=== PATIENT | female | born 1985 | race Caucasian/White ===

== ENCOUNTER 2017-01-01 18:09 | Emergency (ER) | payer SELFPAY ==
[2017-01-01 18:31] VITALS: BP 117/74
--- NOTE | 2017-01-01 19:56 | UC ---
Knee Pain HPI - HPI Summary HPI Summary: 31 yo female fell and landed on both knees today at work She is unsure why she fell denies tripping denies syncopal episode no cp/sob states she has been dizzy for about a week no CLARK no ear ache no tinnitis no sinus symptoms - History of Current Complaint Chief Complaint: UCLowerExtremity Stated Complaint: BILATERAL KNEE PAIN/FALL Time Seen by Provider: 01/01/17 19:35 Hx Obtained From: Patient Hx Last Menstrual Period: 12/31/16 Onset/Duration: Sudden Onset Severity Initially: Moderate Severity Currently: Mild Location Of Injury: L>R knee Pain Intensity: 3 Pain Scale Used: 0-10 Numeric Character: Dull, Aching Aggravating Factor(s): Movement, Weight Bearing Alleviating Factor(s): Rest Associated Signs And Symptoms: Positive: Bruising Able to Bear Weight: Yes - Allergies/Home Medications Allergies/Adverse Reactions: Allergies Allergy/AdvReac Type Severity Reaction Status Date / Time No Known Allergies Allergy Verified 01/01/17 18:30 Home Medications: Home Medications NK [No Home Medications Reported] 01/01/17 [History Confirmed 01/01/17] PMH/Surg Hx/FS Hx/Imm Hx Previously Healthy: Yes - Surgical History Surgical History: None - Family History Known Family History: Positive: Hypertension - Social History Alcohol Use: None Substance Use Type: None Smoking Status (MU): Never Smoked Tobacco Review of Systems Constitutional: Negative Skin: Bruising Eyes: Negative ENT: Negative Respiratory: Negative Cardiovascular: Negative Gastrointestinal: Negative Genitourinary: Negative Motor: Negative Neurovascular: Negative Musculoskeletal: Arthralgia Neurological: Negative Psychological: Negative All Other Systems Reviewed And Are Negative: Yes Physical Exam Triage Information Reviewed: Yes Appearance: Well-Appearing, No Pain Distress, Well-Nourished Vital Signs: Initial Vital Signs Temp 99 F 01/01/17 18:25 Pulse 67 01/01/17 18:25 Resp 16 01/01/17 18:25 BP 117/74 01/01/17 18:25 Pulse Ox 100 01/01/17 18:25 Vital Signs Reviewed: Yes Eyes: Positive: Conjunctiva Clear, Other: - eomi/perrl ENT: Positive: Hearing grossly normal, Pharynx normal, TMs normal. Negative: Nasal congestion, Nasal drainage, TM bulging, TM dull, TM red, Tonsillar swelling, Tonsillar exudate, Trismus, Muffled/hoarse voice Neck: Positive: Supple, Nontender, No Lymphadenopathy Respiratory: Positive: Lungs clear, Normal breath sounds, No respiratory distress, No accessory muscle use Cardiovascular: Positive: RRR, No Murmur Musculoskeletal: Positive: ROM Intact, No Edema, Other: - normal gait/no limp/ from Neurological Exam: Normal Neurological: Positive: Alert Psychological Exam: Normal Knee Pain Course/Dx - Differential Dx/Diagnosis Provider Diagnoses: bilateral knee contusions. dizziness of uncertain cause Discharge - Discharge Plan Condition: Stable Disposition: HOME Patient Education Materials: Contusion in Adults (ED), Dizziness (ED) Forms: *Work Release Referrals: MACIEJ Rosen [Primary Care Provider] - 1 Day Additional Instructions: rest elevate ice tylenol or advil as needed for pain I am unsure of the cause of your dizziness blood work is pending I suggest you see your provider tomorrow for recheck and review of lab work Images Front/Back of Body, Lg (Haskell): 1 - contusion 2 - contusion
[2017-01-02 10:47] LABS: Hematocrit 40 % (35-47); Hemoglobin 13.4 g/dl (12.0-16.0); Mean Corpuscular HGB Conc 33 g/dl (31-36); Mean Corpuscular Hemoglobin 29 pg (27-31); Mean Corpuscular Volume 86 fL (80-97); Mean Platelet Volume 8 um3 (7.4-10.4); Red Blood Count 4.71 10^6/ul (4.0-5.4); Red Cell Distribution Width 14 % (10.5-15)
[2017-01-02 10:56] LABS: BUN/Creatinine Ratio 16.2 (8-20); Calcium 9.3 mg/dL (8.6-10.3); EGFR African American 117.7 (>60); EGFR Non-African American 91.5 (>60); Potassium 3.7 mmol/L (3.5-5.0)
--- NOTE | 2017-01-03 07:19 | ED ---
Progress - Progress Note Progress Note: WBC/BMP (-). THANKS LUIS Course/Dx - Diagnoses Provider Diagnoses: Knee swelling
== END 2017-01-01 20:04 | disposition home or self-care (01) ==
LOC: UCCORT 18:09
DX: S80.02XA Contusion of left knee, initial encounter (principal); S80.01XA Contusion of right knee, initial encounter; W18.30XA Fall on same level, unspecified, initial encounter; Y93.9 Activity, unspecified; Y92.9 Unspecified place or not applicable; Y99.9 Unspecified external cause status; R42 Dizziness and giddiness
CPT/HCPCS: 36415; 80048; 85025; 99211; G0463

== ENCOUNTER 2017-03-11 21:16 | Emergency (ER) | payer OTHER ==
[2017-03-11 21:26] VITALS: BP 124/95
--- NOTE | 2017-03-11 21:31 | UC ---
Complaint Female HPI - HPI Summary HPI Summary: 31 YEAR FEMALE PRESENTS WITH COMPLAINS OF BURNING WITH URINATION. - History Of Current Complaint Chief Complaint: UCGU Stated Complaint: UTI Time Seen by Provider: 03/11/17 21:29 Hx Obtained From: Patient Hx Last Menstrual Period: on and off Onset/Duration: Sudden Onset Timing: Constant Severity Currently: Moderate Pain Scale Used: 0-10 Numeric - 5 Character: Sharp Aggravating Factor(s): Urination - Allergies/Home Medications Allergies/Adverse Reactions: Allergies Allergy/AdvReac Type Severity Reaction Status Date / Time No Known Allergies Allergy Verified 03/11/17 21:26 PMH/Surg Hx/FS Hx/Imm Hx Previously Healthy: Yes - Surgical History Surgical History: None - Family History Known Family History: Positive: Hypertension - Social History Alcohol Use: None Substance Use Type: None Smoking Status (MU): Never Smoked Tobacco Review of Systems Constitutional: Negative Skin: Negative Eyes: Negative ENT: Negative Respiratory: Negative Cardiovascular: Negative Gastrointestinal: Negative Genitourinary: Negative Motor: Negative Neurovascular: Negative Musculoskeletal: Negative Neurological: Negative Psychological: Negative All Other Systems Reviewed And Are Negative: Yes Physical Exam Triage Information Reviewed: Yes Vital Signs: Initial Vital Signs Temp 36.0 C 03/11/17 21:21 Pulse 100 03/11/17 21:21 Resp 18 03/11/17 21:21 BP 124/95 03/11/17 21:21 Pulse Ox 100 03/11/17 21:21 Eye Exam: Normal ENT Exam: Normal Dental Exam: Normal Neck exam: Normal Neck: Positive: 1 Respiratory Exam: Normal Cardiovascular Exam: Normal Abdominal Exam: Normal Musculoskeletal Exam: Normal Neurological Exam: Normal Psychological Exam: Normal Skin Exam: Normal Complaint Female Dx - Differential Dx/Diagnosis Provider Diagnoses: DYSURIA. URINARY FREQUENCY Discharge - Discharge Plan Condition: Stable Disposition: HOME Prescriptions: Cephalexin CAP* [Keflex CAP*] 500 mg PO TID #14 cap Patient Education Materials: Urinary Tract Infection in Women (ED) Referrals: MACIEJ Rosen [Primary Care Provider] -
[2017-03-11] MEDS ORDERED: Cephalexin CAP* 500 MG PO ONE (21:41)
== END 2017-03-11 21:56 | disposition home or self-care (01) ==
LOC: UCEAST 21:16
DX: R30.0 Dysuria (principal); R35.0 Frequency of micturition; Z32.02 Encounter for pregnancy test, result negative
CPT/HCPCS: 81003; 84702; 87086; 99212; A9270-GY; G0463

== ENCOUNTER 2017-03-26 16:16 | Emergency (ER) | payer OTHER ==
[2017-03-26 16:49] VITALS: BP 121/73
--- NOTE | 2017-03-26 16:59 | UC ---
Back Pain HPI - HPI Summary HPI Summary: 31 YEAR OLD FEMALE PRESENTS WITH BACK, SHOULDER AND ARM PAIN. - History of Current Complaint Chief Complaint: UCGeneralIllness Stated Complaint: BACK,ARM PAIN,NAUSEA Time Seen by Provider: 03/26/17 16:57 Hx Obtained From: Patient Hx Last Menstrual Period: 03/25/17 Onset/Duration: Sudden Onset Severity Initially: Moderate Severity Currently: Moderate Pain Scale Used: 0-10 Numeric - 5 Character: Sharp - Allergies/Home Medications Allergies/Adverse Reactions: Allergies Allergy/AdvReac Type Severity Reaction Status Date / Time No Known Allergies Allergy Verified 03/26/17 16:49 PMH/Surg Hx/FS Hx/Imm Hx Previously Healthy: Yes - Surgical History Surgical History: None - Family History Known Family History: Positive: Hypertension - Social History Alcohol Use: None Substance Use Type: None Smoking Status (MU): Never Smoked Tobacco - Immunization History Most Recent Influenza Vaccination: none Review of Systems Constitutional: Negative Skin: Negative Eyes: Negative ENT: Negative Respiratory: Negative Cardiovascular: Negative Gastrointestinal: Negative Genitourinary: Negative Motor: Negative Neurovascular: Negative Musculoskeletal: Myalgia - BACK, SHOULDER, ARM Neurological: Negative Psychological: Negative All Other Systems Reviewed And Are Negative: Yes Physical Exam Triage Information Reviewed: Yes Appearance: Well-Appearing Vital Signs: Initial Vital Signs Temp 36.6 C 03/26/17 16:44 Pulse 74 03/26/17 16:44 Resp 16 03/26/17 16:44 BP 121/73 03/26/17 16:44 Pulse Ox 99 03/26/17 16:44 Eye Exam: Normal ENT Exam: Normal Dental Exam: Normal Neck exam: Normal Neck: Positive: 1 Respiratory Exam: Normal Cardiovascular Exam: Normal Abdominal Exam: Normal Musculoskeletal Exam: Normal Neurological Exam: Normal Psychological Exam: Normal Skin Exam: Normal Back Pain Course/Dx - Differential Dx/Diagnosis Provider Diagnoses: SHOULDER PAIN. BACK PAIN. ARM PAIN Discharge - Discharge Plan Condition: Stable Disposition: HOME Prescriptions: Ibuprofen TAB* [Motrin TAB* 800 MG] 800 mg PO Q8H #30 tab Methocarbamol TAB* [Robaxin 500 MG TAB*] 500 mg PO TID PRN #30 tab PRN Reason: Spasms - Back Patient Education Materials: Muscle Spasm (ED), Lower Back Exercises (ED) Forms: *Work Release Referrals: MACIEJ Rosen [Primary Care Provider] -
== END 2017-03-26 17:44 | disposition home or self-care (01) ==
LOC: UCEAST 16:16
DX: M54.9 Dorsalgia, unspecified (principal); M25.519 Pain in unspecified shoulder; M79.603 Pain in arm, unspecified; Z32.02 Encounter for pregnancy test, result negative
CPT/HCPCS: 81003; 84702; 93005; 99212; G0463

== ENCOUNTER 2017-09-01 15:59 | Emergency (ER) | payer OTHER ==
[2017-09-01 16:11] VITALS: BP 149/99
[2017-09-01] MEDS ORDERED: Al Hydrox/Mg Hydrox/Simet LIQ* 30 ML UDC PO ONE (16:43)
--- NOTE | 2017-09-01 16:58 | UC ---
Kat Melo Gabriel, scribed for Hope Miles MD on 09/01/17 at 1646 . Cardiac HPI - HPI Summary HPI Summary: This patient is a 31 year old F presenting to [facility] with a chief complaint of mid sternal, epigastric CP since earlier today at 1330 while she was at work. The patient rates the aching, burning pain 3/10 in severity. Symptoms alleviated spontaneously, currently she has no pain. Patient reports anxiety around noon and being mildly SOB. Pt states sx started after using her vape - has had similar sx in past. Patient denies burping. She has had similar pain in the past and it has been alleviated by Prilosec. Pt did not take any today. Additionally she states these symptoms might all be related to her anxiety. LNMP 2 weeks ago. No diaphoriesis. mild nausea and feeling need to vomit - received. No fever, chills, cough. Pt also requested eval of rash on arms and upper chest. PT states started 2 days ago after changing laundry detergent. States itchy at times, particularly after shower. No difficulty breathing, facial swelling or other concerns Patients medication reviewed during this visit. - History of Current Complaint Chief Complaint: UCChestPain Stated Complaint: CHEST PAIN Time Seen by Provider: 09/01/17 16:14 Hx Obtained From: Patient Hx Last Menstrual Period: 2 weeks ago Onset/Duration: Lasting Hours, Resolved Timing: Intermittent Episodes Lasting: Initial Severity: Mild Current Severity: Mild Pain Intensity: 3 Chest Pain Location: Mid Sternal Character: Dull/Aching, Burning Aggravating Factor(s): Nothing Alleviating Factor(s): Nothing Associated Signs & Symptoms: Positive: Anxiety, SOB, Nausea/Vomiting. Negative : Chest Pain, Diaphoresis, Palpitations, Cough, Back Pain, Abdominal Pain - Allergy/Home Medications Allergies/Adverse Reactions: Allergies Allergy/AdvReac Type Severity Reaction Status Date / Time No Known Allergies Allergy Verified 09/01/17 16:08 Home Medications: Home Medications Buspirone HCl 5 mg PO DAILY PRN 09/01/17 [History Confirmed 09/01/17] PMH/Surg Hx/FS Hx/Imm Hx Previously Healthy: Yes GI/ History: Gastroesophageal Reflux Psychological History: Anxiety Other History Of: Negative For: Anticoagulant Therapy - Surgical History Surgical History: None - Family History Known Family History: Positive: Hypertension Negative: Cardiac Disease - Social History Occupation: Employed Full-time Lives: With Family Alcohol Use: None Substance Use Type: None Smoking Status (MU): Never Smoked Tobacco - Immunization History Most Recent Influenza Vaccination: none Review of Systems Constitutional: Negative Respiratory: Shortness Of Breath Cardiovascular: Chest Pain Gastrointestinal: Negative Psychological: Anxious All Other Systems Reviewed And Are Negative: Yes Physical Exam Triage Information Reviewed: Yes Appearance: Well-Appearing, No Pain Distress, Well-Nourished Vital Signs: Initial Vital Signs Temp 97.7 F 09/01/17 16:00 Pulse 75 09/01/17 16:00 Resp 18 09/01/17 16:00 BP 149/99 09/01/17 16:00 Pulse Ox 100 09/01/17 16:00 Vital Signs Reviewed: Yes Eye Exam: Normal Eyes: Positive: Conjunctiva Clear ENT Exam: Normal ENT: Positive: Normal ENT inspection, Hearing grossly normal, Pharynx normal, TMs normal Dental Exam: Normal Neck exam: Normal Neck: Positive: Supple, Nontender, No Lymphadenopathy Respiratory Exam: Normal Respiratory: Positive: Chest non-tender, Lungs clear, Normal breath sounds, No respiratory distress, No accessory muscle use Cardiovascular Exam: Normal Cardiovascular: Positive: RRR, No Murmur, Pulses Normal, Other: - no chest wall pain Abdominal Exam: Normal Abdomen Description: Positive: Other: - mild epigastric pain with palpation. No guarding, no rebound soft + BS Bowel Sounds: Positive: Present Musculoskeletal Exam: Normal Musculoskeletal: Positive: Strength Intact Neurological Exam: Normal Neurological: Positive: Alert Psychological Exam: Normal Psychological: Positive: Normal Response To Family Skin: Positive: rashes - pt with small, raised rash on arms and chest - itchy - x 2 days - pt with new laundry detergent Diagnostics - EKG Cardiac Rate: NL Cardiac Rhythm: Sinus: Normal - at 67 BPM , Other Rhythm: Normal - no acute st/ t wave changes Re-Evaluation - Re-Evaluation First Eval Re-Evaluation Time: 17:23 Change: Improved Comment: Patient is experiencing no pain, she is eating and drinking with no complaints. - Assessment/Plan Course Of Treatment: BP noted and advised to follow up with PCP. Pt with epigastric burning and aching with nausea earlier today following vaping. sx resolved. pt with h/o GERD- intermittently takes prilosec - none x 1 week. no cardiovascular risk factor. Pt with mild episgastric discomfort and non cerning exam. Will give maalox, reassessment and po trial. pt comfortable and in agreeent with plan. Pt also with rash- new laundry detergent - will Rx hydrocortisone cream. pt and mom comfortable and in agreement with plan - Clinical Impression Provider Diagnoses: Elevated blood pressure without a previous diagnoses of hypertension. epigastric pain. acute rash - likely contact dermatitis Discharge - Discharge Plan Condition: Stable Disposition: HOME Prescriptions: Hydrocortisone 0.5% CM(NF) [Hydrocortisone 0.5% CREAM(NF)] 1 applic .SEE ORDER BID PRN #1 applic PRN Reason: Itching Omeprazole CAP* [Prilosec CAP* 20 MG] 20 mg PO DAILY #14 cap.dr Patient Education Materials: Acute Rash (ED), Epigastric Pain (ED) Referrals: MACIEJ Rosen [Primary Care Provider] - Additional Instructions: Your blood pressure was elevated during today's visit. Please follow up with your primary care provider in 1-2 weeks. It is recommended you take prilosec daily east small frequent meals Avoid spicy food, acidic food, tomato based foods, carbonated beverages, excess caffeine The doctor thinks you rash is related to your new laundry detergent. It is recommended you re-wash all clothing washed in this detergent in previous detergent. Okay to apply hydrocortisone cream as instructed for itching Avoid hot showers for 2-3 days as this will make itching worse If you develop facial swelling or difficulty breathing it is recommended you call 911 or go to the emergency department Contact your doctor for a follow-up appointment this week to recheck your rash and your discomfort The documentation as recorded by the Kat wyatt Gabriel accurately reflects the service I personally performed and the decisions made by , Hope Miles MD.
== END 2017-09-01 17:35 | disposition home or self-care (01) ==
LOC: UCEAST 15:59
DX: R10.13 Epigastric pain (principal); R21 Rash and other nonspecific skin eruption; R03.0 Elevated blood-pressure reading, without diagnosis of hypertension; R11.2 Nausea with vomiting, unspecified; R06.02 Shortness of breath; K21.9 Gastro-esophageal reflux disease without esophagitis; F41.9 Anxiety disorder, unspecified
CPT/HCPCS: 93005; 99202; A9270-GY; G0463

== ENCOUNTER 2017-10-02 08:46 | Emergency (ER) | payer OTHER ==
[2017-10-02] MEDS ORDERED: NS 0.9% 1000 ML* 1,000 ML IV ONE (09:10)
[2017-10-02] MEDS ORDERED: Ondansetron INJ* 2 MG/ML VIAL IV ONE (09:10)
[2017-10-02] MEDS ORDERED: Ketorolac INJ* 30 MG/ML 1 ML VIAL IV PUSH ONE (09:12)
--- NOTE | 2017-10-02 09:17 | ED ---
GI/ HPI - HPI Summary HPI Summary: 31-year-old female presents with nausea vomiting diarrhea for two days. She denies any blood in her stool. She denies any chest pain or shortness of breath. She denies a cough. She admits to headache. Her headache is very typical headache for her. She needs with pressure behind her ears. She denies any sinus congestion. Denies any pain urination. she denies any flank pain. she admits to left upper quadrant pain when she vomits. She denies anyone else being sick. She denies any recent antibiotic use. She states her symptoms are making her anxiety worst. She has not taken anything for her symptoms. She denies any fevers. - History of Current Complaint Chief Complaint: EDNauseaVomitDiarrh Time Seen by Provider: 10/02/17 09:02 Stated Complaint: VOMITTING Hx Last Menstrual Period: 2 weeks ago Pain Intensity: 2 - Allergy/Home Medications Allergies/Adverse Reactions: Allergies Allergy/AdvReac Type Severity Reaction Status Date / Time citalopram [From Celexa] Allergy Hives Verified 10/02/17 08:56 CELEXA Allergy Intermediate Hives Uncoded 10/02/17 08:56 PMH/Surg Hx/FS Hx/Imm Hx Endocrine/Hematology History: Denies: Hx Anticoagulant Therapy, Hx Diabetes, Hx Thyroid Disease Cardiovascular History: Denies: Hx Hypertension Respiratory History: Denies: Hx Asthma, Hx Chronic Obstructive Pulmonary Disease (COPD) GI History: Denies: Hx Ulcer Infectious Disease History: No Infectious Disease History: Reports: Hx of Known/Suspected MRSA - in urine Denies: Hx Clostridium Difficile, Hx Hepatitis, Hx Human Immunodeficiency Virus (HIV), Hx Shingles, Hx Tuberculosis, Hx Known/Suspected VRE, Hx Known/ Suspected VRSA, History Other Infectious Disease, Traveled Outside the [place] in Last 30 Days - Family History Known Family History: Positive: Hypertension Negative: Cardiac Disease - Social History Alcohol Use: None Substance Use Type: Reports: None Smoking Status (MU): Never Smoked Tobacco Review of Systems Negative: Fever Negative: Chest Pain Negative: Shortness Of Breath Positive: Abdominal Pain - epigastric, Vomiting, Diarrhea, Nausea Positive: Headache All Other Systems Reviewed And Are Negative: Yes Physical Exam Triage Information Reviewed: Yes Vital Signs On Initial Exam: Initial Vitals Temp Pulse Resp BP Pulse Ox 98.1 F 83 16 115/82 98 10/02/17 08:56 10/02/17 08:56 10/02/17 08:56 10/02/17 08:56 10/02/17 08:56 Vital Signs Reviewed: Yes Appearance: Positive: Well-Appearing Skin: Positive: Warm, Dry Head/Face: Positive: Normal Head/Face Inspection Eyes: Positive: Normal, EOMI, EDUARDA, Conjunctiva Clear ENT: Positive: Normal ENT inspection, Pharynx normal, TMs normal - fluid behind ears Respiratory/Lung Sounds: Positive: Clear to Auscultation, Breath Sounds Present Cardiovascular: Positive: Normal, RRR Abdomen Description: Positive: Nontender, Soft Bowel Sounds: Positive: Present Musculoskeletal: Positive: Normal Neurological: Positive: Normal Psychiatric: Positive: Normal Diagnostics - Vital Signs Vital Signs Temp Pulse Resp BP Pulse Ox 10/02/17 08:56 98.1 F 83 16 115/82 98 - Laboratory Result Diagrams: 10/02/17 09:29 10/02/17 09:29 Lab Statement: Any lab studies that have been ordered have been reviewed, and results considered in the medical decision making process. Re-Evaluation - Re-Evaluation First Eval Re-Evaluation Time: 10:03 Change: Improved Comment: feeling better after zofran GIGU Course/Dx - Course Course Of Treatment: 31-year-old female presents with nausea vomiting diarrhea for two days. She denies any blood in her stool. She denies any chest pain or shortness of breath. She denies a cough. She admits to headache. Her headache is very typical headache for her. She needs with pressure behind her ears. She denies any sinus congestion. Denies any pain urination. she denies any flank pain. she admits to left upper quadrant pain when she vomits. She denies anyone else being sick. She denies any recent antibiotic use. She states her symptoms are making her anxiety worst. She has not taken anything for her symptoms. She denies any fevers. On exam lungs clear to auscultation. Abdomen soft nontender. labs wbc normal. patient requesting only orally meds. urine shows uti so will give cipro. electrolytes normal. will discharge with zofran. patient understand and agrees with plan. - Diagnoses Differential Diagnoses - Female: Gastroenteritis (Viral), Gastroenteritis ( Bacterial), Urinary Tract Infection Provider Diagnoses: Nausea vomiting and diarrhea, UTI (urinary tract infection) Discharge - Sign-Out/Discharge Documenting (check all that apply): Discharge - Discharge Plan Condition: Good Disposition: HOME Prescriptions: Ciprofloxacin TAB* [Cipro 500 MG TAB*] 500 mg PO BID #13 tab Ondansetron ODT TAB* [Zofran 4 MG Odt TAB*] 4 mg PO Q6H PRN #16 tab.odt PRN Reason: Nausea Patient Education Materials: Urinary Tract Infection in Women (ED), Acute Nausea and Vomiting (ED) Referrals: MACIEJ Rosen [Primary Care Provider] - Additional Instructions: Take cipro twice a day for 7 days Can take Zofran every 6 hours as needed for nausea Drink small amounts of fluid as tolerated When able to eat follow BRAT diet: Bananas, rice, applesauce, toast Take ibuprofen or Tylenol for pain as needed every 6 hours Follow up with primary within 5 days Return to ED if develop fever that does not respond to Tylenol or ibuprofen, severe abdominal pain, or any new or worsening symptoms - Billing Disposition and Condition Condition: GOOD Disposition: HOME
[2017-10-02] MEDS ORDERED: Ondansetron ODT TAB* 4 MG PO ONE (09:36)
[2017-10-02 09:41] LABS: ABS Basophils 0 10^3/ul (0-0.2); ABS Eosinophils 0 10^3/ul (0-0.6); ABS Lymphocytes 1.1 10^3/ul (1.0-4.8); ABS Monocytes 0.6 10^3/ul (0-0.8); ABS Neutrophils 5.6 10^3/ul (1.5-7.7); ABS Nucleated RBC 0 10^3/ul; Eosinophil % 0.6 % (0-6); Hematocrit 44 % (35-47); Hemoglobin 15.5 g/dl (12.0-16.0); Lymphocyte % 15.2 % (25-47); Mean Corpuscular HGB Conc 35 g/dl (31-36); Mean Corpuscular Hemoglobin 30 pg (27-31); Mean Corpuscular Volume 85 fL (80-97); Mean Platelet Volume 6.9 um3 (7.4-10.4); Nucleated Red Blood Cells % 0.2; Platelet Count 233 10^3/ul (150-450); Red Blood Count 5.23 10^6/ul (4.0-5.4); Red Cell Distribution Width 14 % (10.5-15); White Blood Count 7.5 10^3/ul (3.5-10.8)
[2017-10-02 09:57] LABS: Urine Appearance Cloudy; Urine Blood 3+ (Negative); Urine Color Yellow; Urine Ketones Trace (Negative); Urine Protein 1+(30 mg/dL) (Negative); Urine Specific Gravity 1.026 (1.010-1.030); Urine Urobilinogen Negative (Negative)
[2017-10-02 09:59] LABS: EGFR Non-African American 94.5 (>60)
[2017-10-02] MEDS ORDERED: Ciprofloxacin TAB* 500 MG PO ONE (10:00)
[2017-10-02 10:34] VITALS: BP 114/88
--- NOTE | 2017-10-04 11:54 | ED ---
Progress - Progress Note Progress Note: Patient's preliminary urine culture reveals greater than 100,000 Staphylococcus aureus. Patient was discharged on Cipro. This is most likely not appropriate treatment however will wait until tomorrow for final culture results to make adjustments. Re-Evaluation - Re-Evaluation First Eval Re-Evaluation Time: 10:03 Change: Improved Comment: feeling better after zofran Course/Dx - Course Course Of Treatment: 31-year-old female presents with nausea vomiting diarrhea for two days. She denies any blood in her stool. She denies any chest pain or shortness of breath. She denies a cough. She admits to headache. Her headache is very typical headache for her. She needs with pressure behind her ears. She denies any sinus congestion. Denies any pain urination. she denies any flank pain. she admits to left upper quadrant pain when she vomits. She denies anyone else being sick. She denies any recent antibiotic use. She states her symptoms are making her anxiety worst. She has not taken anything for her symptoms. She denies any fevers. On exam lungs clear to auscultation. Abdomen soft nontender. labs wbc normal. patient requesting only orally meds. urine shows uti so will give cipro. electrolytes normal. will discharge with zofran. patient understand and agrees with plan. - Diagnoses Provider Diagnoses: Nausea vomiting and diarrhea, UTI (urinary tract infection) Discharge - Sign-Out/Discharge Documenting (check all that apply): Post-Discharge Follow Up - Discharge Plan Condition: Good Disposition: HOME Prescriptions: Ciprofloxacin TAB* [Cipro 500 MG TAB*] 500 mg PO BID #13 tab Ondansetron ODT TAB* [Zofran 4 MG Odt TAB*] 4 mg PO Q6H PRN #16 tab.odt PRN Reason: Nausea Patient Education Materials: Urinary Tract Infection in Women (ED), Acute Nausea and Vomiting (ED) Referrals: MACIEJ Rosen [Primary Care Provider] - Additional Instructions: Take cipro twice a day for 7 days Can take Zofran every 6 hours as needed for nausea Drink small amounts of fluid as tolerated When able to eat follow BRAT diet: Bananas, rice, applesauce, toast Take ibuprofen or Tylenol for pain as needed every 6 hours Follow up with primary within 5 days Return to ED if develop fever that does not respond to Tylenol or ibuprofen, severe abdominal pain, or any new or worsening symptoms - Billing Disposition and Condition Condition: GOOD Disposition: HOME
--- NOTE | 2017-10-05 07:24 | ED ---
Progress - Progress Note Progress Note: Patient's preliminary urine culture reveals greater than 100,000 Staphylococcus aureus. Patient was discharged on Cipro. This is most likely not appropriate treatment however will wait until tomorrow for final culture results to make adjustments. UPDATE: Spoke with patient who feels about the same. She will stop Cipro and start Bactrim as she's had this in the past and has worked well for her. This will be sent to [facility] in [place]. Reviewed danger signs and symptoms of when to return to the emergency department. Patient agrees with plan. Re-Evaluation - Re-Evaluation First Eval Re-Evaluation Time: 10:03 Change: Improved Comment: feeling better after zofran Course/Dx - Course Course Of Treatment: 31-year-old female presents with nausea vomiting diarrhea for two days. She denies any blood in her stool. She denies any chest pain or shortness of breath. She denies a cough. She admits to headache. Her headache is very typical headache for her. She needs with pressure behind her ears. She denies any sinus congestion. Denies any pain urination. she denies any flank pain. she admits to left upper quadrant pain when she vomits. She denies anyone else being sick. She denies any recent antibiotic use. She states her symptoms are making her anxiety worst. She has not taken anything for her symptoms. She denies any fevers. On exam lungs clear to auscultation. Abdomen soft nontender. labs wbc normal. patient requesting only orally meds. urine shows uti so will give cipro. electrolytes normal. will discharge with zofran. patient understand and agrees with plan. - Diagnoses Provider Diagnoses: Nausea vomiting and diarrhea, UTI (urinary tract infection) Discharge - Sign-Out/Discharge Documenting (check all that apply): Post-Discharge Follow Up - Discharge Plan Condition: Good Disposition: HOME Prescriptions: Ciprofloxacin TAB* [Cipro 500 MG TAB*] 500 mg PO BID #13 tab Ondansetron ODT TAB* [Zofran 4 MG Odt TAB*] 4 mg PO Q6H PRN #16 tab.odt PRN Reason: Nausea Patient Education Materials: Urinary Tract Infection in Women (ED), Acute Nausea and Vomiting (ED) Referrals: MACIEJ Rosen [Primary Care Provider] - Additional Instructions: Take cipro twice a day for 7 days Can take Zofran every 6 hours as needed for nausea Drink small amounts of fluid as tolerated When able to eat follow BRAT diet: Bananas, rice, applesauce, toast Take ibuprofen or Tylenol for pain as needed every 6 hours Follow up with primary within 5 days Return to ED if develop fever that does not respond to Tylenol or ibuprofen, severe abdominal pain, or any new or worsening symptoms - Billing Disposition and Condition Condition: GOOD Disposition: HOME
== END 2017-10-02 10:33 | disposition home or self-care (01) ==
LOC: ED 08:46
DX: R11.2 Nausea with vomiting, unspecified (principal); R19.7 Diarrhea, unspecified; N39.0 Urinary tract infection, site not specified; B95.61 Methicillin susceptible Staphylococcus aureus infection as the cause of diseases classified elsewhere
CPT/HCPCS: 36415; 80053; 80307; 81003; 81015; 83690; 84702; 85025; 86141; 87077; 87086; 87186; 96360; 96374; 96375; 99283; A9270-GY; J1885; J2405

== ENCOUNTER 2017-12-15 07:06 | Inpatient (IN) | payer OTHER ==
[2017-12-15 07:59] LABS: ABS Basophils 0 10^3/ul (0-0.2); ABS Eosinophils 0.1 10^3/ul (0-0.6); ABS Lymphocytes 1.2 10^3/ul (1.0-4.8); ABS Monocytes 0.5 10^3/ul (0-0.8); ABS Neutrophils 4.2 10^3/ul (1.5-7.7); ABS Nucleated RBC 0 10^3/ul; Eosinophil % 1.2 % (0-6); Hematocrit 44 % (35-47); Hemoglobin 15.3 g/dl (12.0-16.0); Lymphocyte % 20.3 % (25-47); Mean Corpuscular HGB Conc 35 g/dl (31-36); Mean Corpuscular Hemoglobin 29 pg (27-31); Mean Corpuscular Volume 83 fL (80-97); Mean Platelet Volume 7.9 um3 (7.4-10.4); Nucleated Red Blood Cells % 0.3; Platelet Count 233 10^3/ul (150-450); Red Blood Count 5.26 10^6/ul (4.00-5.40); Red Cell Distribution Width 14 % (10.5-15); White Blood Count 6.1 10^3/ul (3.5-10.8)
--- NOTE | 2017-12-15 08:17 | RAD ---
INDICATION: Shortness of breath and chest pain for 2 weeks. COMPARISON: No relevant prior exams available on the [facility] PACS for comparison. TECHNIQUE: Sitting AP and routine lateral views of the chest were obtained. REPORT: Clear lungs and pleural spaces. Negative for pneumothorax. The heart, pulmonary vasculature, and mediastinal contours are unremarkable. Unremarkable osseous structures and soft tissue contours. IMPRESSION: No evidence for acute intrathoracic disease.
[2017-12-15 08:21] LABS: EGFR Non-African American 93.9 (>60)
[2017-12-15] MEDS ORDERED: Potassium Chlor TAB* 20 MEQ TAB.ER PO ONE ×2 (08:50→09:31)
[2017-12-15 09:11] LABS: Urine Appearance Cloudy; Urine Blood Negative (Negative); Urine Color Amber; Urine Ketones Negative (Negative); Urine Protein 1+(30 mg/dL) (Negative); Urine Specific Gravity 1.027 (1.010-1.030); Urine Urobilinogen Positive (Negative)
--- NOTE | 2017-12-15 12:29 | ED ---
Darrius Melo Tenzin, scribed for Sonny Mota on 12/15/17 at 0750 . Complex/Multi-Sys Presentation - HPI Summary HPI Summary: Pt is a 32 years old female presenting to the ED with complaints of chest discomfort that is making her difficult to breathe, eat and sleep for the last 12 days. Pt is also complaining of episodes of emesis after eating any solid foods and headache that is described as my head feels full. She notes that she also gets intermittent suicidal ideation, with depression. Pt denies consumption of EtOH or drugs. No aggravating or alleviating factors were noted. - History Of Current Complaint Chief Complaint: EDMentalHealth Time Seen by Provider: 12/15/17 07:33 Hx Obtained From: Patient Onset/Duration: Lasting Days - since 12 days ago., Still Present Associated Signs And Symptoms: Positive: Headache, Chest Pain - Chest discomfort., Vomiting, Other - Difficulty breathing, not able to eat or sleep. Intermittent SI. - Allergies/Home Medications Allergies/Adverse Reactions: Allergies Allergy/AdvReac Type Severity Reaction Status Date / Time citalopram [From Celexa] Allergy Hives Verified 12/15/17 07:33 Home Medications: Home Medications NK [No Home Medications Reported] 12/15/17 [History Confirmed 12/15/17] PMH/Surg Hx/FS Hx/Imm Hx Endocrine/Hematology History: Denies: Hx Anticoagulant Therapy, Hx Diabetes, Hx Thyroid Disease Cardiovascular History: Denies: Hx Hypertension Respiratory History: Denies: Hx Asthma, Hx Chronic Obstructive Pulmonary Disease (COPD) GI History: Denies: Hx Ulcer Infectious Disease History: No Infectious Disease History: Reports: Hx of Known/Suspected MRSA - in urine Denies: Hx Clostridium Difficile, Hx Hepatitis, Hx Human Immunodeficiency Virus (HIV), Hx Shingles, Hx Tuberculosis, Hx Known/Suspected VRE, Hx Known/ Suspected VRSA, History Other Infectious Disease, Traveled Outside the [place] in Last 30 Days - Family History Known Family History: Positive: Hypertension Negative: Cardiac Disease - Social History Alcohol Use: None Substance Use Type: Reports: None Smoking Status (MU): Never Smoked Tobacco Review of Systems Positive: Other - difficult eating or sleeping. Positive: Chest Pain - Chest discomfort. Positive: Shortness Of Breath - Difficulty breathing with the chest discomfort. Positive: Vomiting Positive: Anxious, Depressed All Other Systems Reviewed And Are Negative: Yes Physical Exam - Summary Physical Exam Summary: Appearance:Anxious, depressed. Skin: warm, dry, reflects adequate perfusion Head/face: normal Eyes: EOMI, EDUARDA ENT: normal Neck: supple, non-tender Respiratory: CTA, breath sounds present Cardiovascular: RRR, pulses symmetrical Abdomen: non-tender, soft Bowel: present Musculoskeletal: normal, strength/ROM intact Neuro: normal, sensory motor intact, A&Ox3 Triage Information Reviewed: Yes Vital Signs On Initial Exam: Initial Vitals Temp Pulse Resp BP Pulse Ox 96.8 F 97 16 147/97 96 12/15/17 07:25 12/15/17 07:25 12/15/17 07:25 12/15/17 07:25 12/15/17 07:25 Vital Signs Reviewed: Yes Diagnostics - Vital Signs Vital Signs Temp Pulse Resp BP Pulse Ox 12/15/17 07:25 96.8 F 97 16 147/97 96 - Laboratory Lab Results: Lab Results 12/15/17 12/15/17 12/15/17 Range/Units 07:48 07:48 07:48 WBC 6.1 (3.5-10.8) 10^3/ul RBC 5.26 (4.00-5.40) 10^6/ul Hgb 15.3 (12.0-16.0) g/dl Hct 44 (35-47) % MCV 83 (80-97) fL MCH 29 (27-31) pg MCHC 35 (31-36) g/dl RDW 14 (10.5-15) % Plt Count 233 (150-450) 10^3/ul MPV 7.9 (7.4-10.4) um3 Neut % (Auto) 69.3 (38-83) % Lymph % (Auto) 20.3 L (25-47) % Dade % (Auto) 8.8 H (0-7) % Eos % (Auto) 1.2 (0-6) % Baso % (Auto) 0.4 (0-2) % Absolute Neuts (auto) 4.2 (1.5-7.7) 10^3/ul Absolute Lymphs (auto) 1.2 (1.0-4.8) 10^3/ul Absolute Monos (auto) 0.5 (0-0.8) 10^3/ul Absolute Eos (auto) 0.1 (0-0.6) 10^3/ul Absolute Basos (auto) 0 (0-0.2) 10^3/ul Absolute Nucleated RBC 0 10^3/ul Nucleated RBC % 0.3 D-Dimer, Quantitative < 200 (Less Than 230) ng/mL Sodium 140 (135-145) mmol/L Potassium 2.9 L (3.5-5.0) mmol/L Chloride 102 (101-111) mmol/L Carbon Dioxide 30 (22-32) mmol/L Anion Gap 8 (2-11) mmol/L BUN 7 (6-24) mg/dL Creatinine 0.72 (0.51-0.95) mg/dL Est GFR ( Amer) 113.6 (>60) Est GFR (Non-Af Amer) 93.9 (>60) BUN/Creatinine Ratio 9.7 (8-20) Glucose 106 H (70-100) mg/dL Calcium 10.0 (8.6-10.3) mg/dL Total Bilirubin 1.80 H (0.2-1.0) mg/dL AST 32 (13-39) U/L ALT 39 (7-52) U/L Alkaline Phosphatase 77 (34-104) U/L Troponin I 0.00 (<0.04) ng/mL Total Protein 7.5 (6.4-8.9) g/dL Albumin 4.8 (3.2-5.2) g/dL Globulin 2.7 (2-4) g/dL Albumin/Globulin Ratio 1.8 (1-3) TSH 1.94 (0.34-5.60) mcIU/mL Beta HCG, Quant < 0.60 mIU/mL Urine Color Urine Appearance Urine pH (5-9) Ur Specific Leeper (1.010-1.030) Urine Protein (Negative) Urine Ketones (Negative) Urine Blood (Negative) Urine Nitrate (Negative) Urine Bilirubin (Negative) Urine Urobilinogen (Negative) Ur Leukocyte Esterase (Negative) Urine WBC (Auto) (Absent) Urine RBC (Auto) (Absent) Ur Squamous Epith Cells (Absent) Urine Bacteria (Absent) Urine Glucose (Negative) Salicylates < 2.50 (<30) mg/dL Urine Opiates Screen (None Detect) Acetaminophen < 15 mcg/mL Ur Barbiturates Screen (None Detect) Ur Phencyclidine Scrn (None Detect) Ur Amphetamines Screen (None Detect) U Benzodiazepines Scrn (None Detect) Urine Cocaine Screen (None Detect) U Cannabinoids Screen (None Detect) Serum Alcohol < 10 (<10) mg/dL 12/15/17 12/15/17 Range/Units 08:41 08:41 WBC (3.5-10.8) 10^3/ul RBC (4.00-5.40) 10^6/ul Hgb (12.0-16.0) g/dl Hct (35-47) % MCV (80-97) fL MCH (27-31) pg MCHC (31-36) g/dl RDW (10.5-15) % Plt Count (150-450) 10^3/ul MPV (7.4-10.4) um3 Neut % (Auto) (38-83) % Lymph % (Auto) (25-47) % Dade % (Auto) (0-7) % Eos % (Auto) (0-6) % Baso % (Auto) (0-2) % Absolute Neuts (auto) (1.5-7.7) 10^3/ul Absolute Lymphs (auto) (1.0-4.8) 10^3/ul Absolute Monos (auto) (0-0.8) 10^3/ul Absolute Eos (auto) (0-0.6) 10^3/ul Absolute Basos (auto) (0-0.2) 10^3/ul Absolute Nucleated RBC 10^3/ul Nucleated RBC % D-Dimer, Quantitative (Less Than 230) ng/mL Sodium (135-145) mmol/L Potassium (3.5-5.0) mmol/L Chloride (101-111) mmol/L Carbon Dioxide (22-32) mmol/L Anion Gap (2-11) mmol/L BUN (6-24) mg/dL Creatinine (0.51-0.95) mg/dL Est GFR ( Amer) (>60) Est GFR (Non-Af Amer) (>60) BUN/Creatinine Ratio (8-20) Glucose (70-100) mg/dL Calcium (8.6-10.3) mg/dL Total Bilirubin (0.2-1.0) mg/dL AST (13-39) U/L ALT (7-52) U/L Alkaline Phosphatase (34-104) U/L Troponin I (<0.04) ng/mL Total Protein (6.4-8.9) g/dL Albumin (3.2-5.2) g/dL Globulin (2-4) g/dL Albumin/Globulin Ratio (1-3) TSH (0.34-5.60) mcIU/mL Beta HCG, Quant mIU/mL Urine Color Dior Urine Appearance Cloudy Urine pH 7.0 (5-9) Ur Specific Leeper 1.027 (1.010-1.030) Urine Protein 1+(30 mg/dl) A (Negative) Urine Ketones Negative (Negative) Urine Blood Negative (Negative) Urine Nitrate Negative (Negative) Urine Bilirubin 1+ A (Negative) Urine Urobilinogen Positive A (Negative) Ur Leukocyte Esterase Trace A (Negative) Urine WBC (Auto) Trace(0-5/hpf) (Absent) Urine RBC (Auto) 2+(6-10/hpf) A (Absent) Ur Squamous Epith Cells Present A (Absent) Urine Bacteria Absent (Absent) Urine Glucose Negative (Negative) Salicylates (<30) mg/dL Urine Opiates Screen None detected (None Detect) Acetaminophen mcg/mL Ur Barbiturates Screen None detected (None Detect) Ur Phencyclidine Scrn None detected (None Detect) Ur Amphetamines Screen None detected (None Detect) U Benzodiazepines Scrn None detected (None Detect) Urine Cocaine Screen None detected (None Detect) U Cannabinoids Screen None detected (None Detect) Serum Alcohol (<10) mg/dL Result Diagrams: 12/15/17 07:48 12/15/17 07:48 Lab Statement: Any lab studies that have been ordered have been reviewed, and results considered in the medical decision making process. - CT CHEST XRAY CT Interpretation Completed By: Radiologist - IMPRESSION: No evidence for acute intrathoracic disease. Complex Multi-Symp Course/Dx Course Of Treatment: Pt is a 32 years old female presenting to the ED with complaints of chest discomfort that is making her difficult to breathe, eat and sleep for the last 12 days. Bloodwork and UA are obtained. Chest X ray was negative for acute intrathoracic disease. MHE was obtained and was recommended for admission. - Diagnoses Provider Diagnoses: Depression, Suicidal ideation, Hypokalemia Discharge - Sign-Out/Discharge Documenting (check all that apply): Discharge/Admit/Transfer - Admit. - Discharge Plan Condition: Stable Disposition: PSYCHIATRIC FACILITY-[facility] Referrals: MACIEJ Rosen [Z.BUSINESS, APPLICATION, OTHER] - - Billing Disposition and Condition Condition: STABLE Disposition: Psychiatric Facility [facility] The documentation as recorded by the Darrius wyatt Tenzin accurately reflects the service I personally performed and the decisions made by , Sonny Mota.
--- NOTE | 2017-12-15 15:50 | RAD ---
Indication: Headache. Comparison: No relevant prior exams available on the [facility] PACS for comparison. Technique: Noncontrast CT vertex of skull through foramen magnum. Report: The sulci, ventricles, and basal cisterns are normal for age. Caicedo matter white matter differentiation is preserved without evidence for edema. No intra or extra axial hemorrhage, mass, or fluid collection detected. Unremarkable visualized orbital contents. Unremarkable calvarium and skull base. Unremarkable scalp. The partially visualized sphenoid paranasal sinuses and mastoid air spaces are clear. IMPRESSION: Negative unenhanced head CT.
[2017-12-15] MEDS ORDERED: Al Hydrox/Mg Hydrox/Simet LIQ* 30 ML UDC PO PRN (16:17)
[2017-12-15] MEDS ORDERED: hydrOXYzine HCL TAB* 50 MG PO PRN (16:20)
--- NOTE | 2017-12-16 12:37 | HP ---
HISTORY AND PHYSICAL: DATE OF ADMISSION: 12/15/17 SUPERVISING PHYSICIAN: Parish Hoskins MD * (DICTATED BY SORIN MENDOSA NP ) JUSTIFICATION FOR ADMISSION: The patient is in need of 24-hour supervision and care secondary to suicidal ideation. CHIEF COMPLAINT: "I feel that I shouldn't be breathing, I am afraid to sleep because I am afraid I will in my sleep!" HISTORY OF PRESENT ILLNESS: The patient is a 32-year-old white female who is partnered who appears somewhat older than her stated age. She is here on a 9.39 status after being brought in by herself and her significant other, Elmer. The case is that Yamila has not slept well for about 2 weeks, this is following her mother telling her that one of her friends in her sleep and Yamila taking this very personally and believing that her own breathing is irregular, that it should not be the way it is; for example, she does not believe that her stomach should move when she is breathing. She feels as though when she walks and breathes, she should not be doing both at the same time and yet at the same time with both of those instances, she knows that those are normal things to do. She has 5 kids who are at home right now with either her boyfriend or a maintenance planning clerk depending on the time of the day. She seems surprised when I ask if she is again. She doesn't think so. She cannot sleep because of the report that someone in her sleep. She is also worried because she states she has "fluid on my ears" and she says this is according to [facility]. She is currently thinking about stabbing herself in the chest with a knife. She is very worried, anxious, and tearful and wipes her nose on her shirt. She has tattoos on her arms that are of people 's names. Her stressors include her job, finances, the revelation that a friend in her sleep, the possibility that she has HIV, that she has hurt her head, that her ears are hurt, that she might have a UTI. In general, she is an incredibly worried woman who appears to somaticize them. Her symptoms include worrying and anxiety. She appears physically tense. She has a difficult time attending to what I am saying. She is restless, shifting around a lot and her sleep is indeed disturbed. PAST PSYCHIATRIC HISTORY: She has been admitted to [facility] before, she says "a long long time ago." She has never attempted suicide. She is currently thinking about stabbing herself in the chest with a knife. She asserts she has no trauma and no abuse. Mom reportedly says in a somewhat abusive way that she should not go to the psych hospital because "they will lock you in a room and won't let you do anything." Previous psych meds include sertraline, Klonopin, Celexa, and BuSpar. Sertraline, Klonopin, and Celexa either did not work well or gave her an allergy. BuSpar, she may be willing to try again. PAST MEDICAL HISTORY: Some elevated liver enzymes, concern that her ears are stuffed and have too much fluid in them and the possibility that she might have HIV. (She does not.) ALLERGIES: She has no known drug allergies. FAMILY HISTORY: We did not discuss. SUBSTANCE ABUSE HISTORY: She does not drink. She does not use alcohol. She used to smoke cigarettes 1-1/2 weeks ago. She is not in any kind of treatment program. SOCIAL HISTORY: She lives in [place] with her boyfriend and her 5 children. Collette is 1, Yen is 3, Mena is 6, Cameron is 9, Mau is 12. The youngest, Collette is the daughter of her boyfriend. She had been working at [employer], but she received from a call from Bruxie who is a temp agency who employs her at [employer] that she is no longer allowed back until further notice. She states this is not okay due to financial constraints. She has not been in the . She denies any legal problems. REVIEW OF SYSTEMS: The patient reports feeling fatigued. She denies shortness of breath, although she is very focused on her breathing. She denies heat or cold intolerance. She denies chest pain or abdominal pain. She denies neurological symptoms. She denies fevers or changes in weight. PHYSICAL EXAMINATION VITAL SIGNS: On 12/15/17, at 1648, her temperature was 97.6, pulse 108 which did reduce this morning to 76, respiratory rate 18, O2 sat 100%, and blood pressure 138/109 which also reduced this morning to 109/76. For additional exam data, please see the emergency department records. LABORATORY RECORDS: Her liver enzymes in fact are not elevated. Her urine has protein, bilirubin, urobilinogen, leukocyte esterase, rbc's and epithelial cells. Her urine specific gravity is within normal limits, but is a little high at 1.027 and the urine appearance is cloudy and the color is dipti. Toxicology : There are no drugs detected and alcohol is less than 10. MENTAL STATUS EXAM: This is a 32-year-old woman who appears somewhat older than her stated age. She has short cropped hair that she runs her fingers through a lot. She has tattoos up and down both of her arms. She is tearful. Her grooming is adequate. She is fidgeting. She is cooperative and reasonably calm, although this may be slightly irritable. Her speech is of a normal rate, tone, and volume. She is dysthymic. She has a full range of affect. Her thought processes, rate is normal. She has logical thoughts. She is not delusional, but she does have obsessive thoughts about breathing which get in the way of her feeling comfortable. She is not homicidal or suicidal at this time. She has no desire or intent to hurt her children. She is not having auditory or visual or any other kind of hallucination. Her insight is fair. Her judgment is fair. She is alert and oriented x3. She is of average intelligence. DIAGNOSES: [place] I: Generalized anxiety disorder and major depressive disorder. [place] II: Deferred. IMPRESSION: Yamila is a 32-year-old woman who is having an exacerbation of intense anxiety and depression following the revelation that a friend of hers in her sleep. This has been problematic for her in that she is focused on her breathing and what about it is normal and what is not normal. It causes her to not sleep and in the context of not sleeping, she has become so obsessive that it borders on psychosis. PLAN: The patient is admitted to the adult behavioral health unit and placed on 15- minute checks for her own safety. Yamila is encouraged to participate in supportive milieu, individual, and group therapies. Her estimated length of stay is 3 to 5 days. We will titrate medications to efficacy and monitor for mood and thought content. Discharge planning may include family involvement and will include outpatient providers. SORIN MENDOSA, [place] [id number]/[facility] #: [id number] LEROY
[2017-12-16] MEDS: Cetirizine* 10 MG TAB PO SCH (14:28)
[2017-12-16] MEDS: Fluticasone NASAL SPRAY 50MCG* 16 gm SPRAY BTL BOTH NARES SCH (14:28)
--- NOTE | 2017-12-16 19:35 | CONS ---
CONSULTATION REPORT: DATE OF CONSULT: 12/16/17 SERVICE REQUESTING CONSULT: Psychiatry. REASON FOR CONSULT: Ear fullness. SOURCE OF INFORMATION: History obtained from interview with the patient, review of past medical records. RELIABILITY: Fair. HISTORY OF PRESENT ILLNESS: This is a 32-year-old female admitted on 12/15/17 with a chief complaint she could not breathe and afraid that she could not sleep because she was afraid she was going to in her sleep. After admission , she was complaining that her ears felt full and that she had some clear discharge from her right ear. Further examination of the patient indicated that her ears have felt full for many months associated with some frontal sinus congestion, but no rhinorrhea, sore throat, cough, fevers, chills. She cannot identify any sick contacts. She has had no trauma to her ears, although she does use Q-tips. She has had no pain or difficulty hearing, abnormal hearing sounds or tinnitus. She is taking no medications to try to relieve any of her sinus congestion. She is unsure if she has any seasonal allergies. PAST MEDICAL HISTORY: As per admitting history including history of elevated liver enzymes and history of sinus congestion/ear fullness, as well as some concern she may have HIV. CURRENT MEDICATIONS: Include: 1. Acetaminophen. 2. Maalox Plus. 3. Atarax. REVIEW OF SYSTEMS: Sinus pressure. PHYSICAL EXAM: Vitals: In U, 109/76, heart rate 76, respiratory rate 17, 100 % on room air, T-max since admitted 98.6 degrees Fahrenheit. Well appearing, sitting up in bed, interactive, pleasant, in no apparent distress. Her oropharynx is clear. She has moist mucous membranes. Sclerae are anicteric. She has no tenderness to sinus palpation. Her right TM is bulging, but intact. Left TM, good light reflex. She has regular rate and rhythm. No murmurs, rubs, or gallops. Lungs are clear to auscultation. She has no apparent anxiety , agitation, or depression on my conversation. LABORATORY DATA: Labs reviewed without appreciative abnormality, although it is indicated that HIV is now negative. ASSESSMENT AND PLAN: This is a 32-year-old female admitted to U, self- reported ear congestion over the last several months. 1. Sinus congestion/ear drainage. The patient does have a full TM on the right on examination. The setting of several months' duration without other associated signs or symptoms would lead me to believe seasonal allergies have some contributing factor. Recommend cetirizine as well as mometasone to start a therapeutic trial. The patient was not clear she would want to take Claritin or cetirizine if offered to her. I did eap counselor her it may help her feel better and she will consider taking at a later time. 2. No additional concerns at this time for this author to follow. I will sign off the care of this patient for now. Please call with additional concerns or complaints or if any worsening of this patient's symptoms. Thank you for this consultation. [id number]/[facility] #: [id number] LEROY
[2017-12-17] MEDS: Cetirizine* 10 MG TAB PO SCH (10:24)
[2017-12-17] MEDS: Fluticasone NASAL SPRAY 50MCG* 16 gm SPRAY BTL BOTH NARES SCH (10:24)
--- NOTE | 2017-12-17 15:23 | PN ---
Subjective - Subjective Date of Service: 12/17/17 Service Type: 85066 Hosp care 15 min low complexity Subjective: Yamila is afraid to take new medication, but she is also growing intolerant of being here without her children. Yulia Enrique and I discussed with her the utility of taking medication and signing releases. Yamila does not seem to tolerate these stressors well. She grew irritable about the releases and became frustrated by the list of side effects used to explain Abilify. She was left with the option of taking it at night (2 or 2.5 mg, whichever is available). Objective - Appearance Appearance: Healthy Appearing Dysmorphic Features: No Hygiene: Normal Grooming: Disheveled - Behavior Psychomotor Activities: Normal Exhibits Abnormal Movement: No - Attitude and Relatedness Attitude and Relatedness: Child Like Eye Contact: Fair - Speech Quality: Unpressured Latencies: Normal Quantity: Terse - Mood Patient's Decription of Mood: "Terrible" - Affect Observed Affect: Constricted Affect Consistent with: Dysphoria - Thought Process Patient's Thought Process: Coherent Thought Content: No Passive Wish, No Suicidal Planning, No Homicidal Ideation, No Paranoid Ideation - Sensorium Experiencing Hallucinations: No, Sensorium is Clear Type of Hallucinations: Visual: No, Auditory: No, Command: No - Level of Consciousness Level of Consciousness: Alert Orientation: Yes Intact, Yes Orientated to Time, Yes Orientated to Place, Yes Orientated to Person - Impulse Control Impulse Control: Intact - Insight and Judgement Insight and Judgement: Fair - Group Participation Particating in Group Activities: No - Medication Management Medication Management Adherence: Partial - Additional Observations Comments: Aurora is upset most of the time. She wants to get back home to her children. She has little insight into what brought her here, although she recognizes that her thoughts do not entirely make sense--she needs to breathe, she knows, but feels as though it is either not allowed or not going to happen. Assessment - Assessment Merits Inpatient Hospitalization: For Immediate Safety, For Stabilization Clinical Impression: Aurora is a 32-year-old woman who is the mother to five children. She is highly motivated to get back home to them. She is not certain she wants to take medications, but she is encouraged to try a small dose of Abilify. Plan - Plan Treatment Plan: Name: YAMILA ROY Birthdate: 1985 [id number] Continued Medication Management: Start Medication Medications: Current Medications Acetaminophen (Tylenol Tab*) 650 mg PO Q4H PRN PRN Reason: for pain; or Temp >101 F Al Hydrox/Mg Hydrox/Simethicone (Maalox Plus*) 30 ml PO Q4H PRN PRN Reason: INDIGESTION Cetirizine HCl (Zyrtec*) 10 mg PO DAILY [facility]; Protocol Last Admin: 12/17/17 10:24 Dose: Not Given Fluticasone Propionate (Flonase Nasal [place] 50mcg*) 2 spray BOTH NARES DAILY [facility] Last Admin: 12/17/17 10:24 Dose: Not Given Hydroxyzine HCl (Atarax Tab*) 50 mg PO Q6H PRN PRN Reason: ANXIETY - Discharge Plan Discharge Plan: Outpatient Follow Up Additional Comments: Aurora is highly anxious and has hints of being psychotic. We reintroduced the idea of medication to address depression, anxiety, and "odd thoughts." Aurora is very concerned about side effects and has the insight to know that if she were presented with a list of side effects, she would likely get them all.
[2017-12-17] MEDS ORDERED: ARIPiprazole TAB* 2 MG PO ONE (21:00)
[2017-12-18] MEDS: Fluticasone NASAL SPRAY 50MCG* 16 gm SPRAY BTL BOTH NARES SCH (09:10)
[2017-12-18] MEDS: Cetirizine* 10 MG TAB PO SCH (09:10)
--- NOTE | 2017-12-18 16:12 | PN ---
Subjective - Subjective Date of Service: 12/18/17 Service Type: 86049 Hosp care 35 min high complexity Subjective: Aurora is highly anxious. She is so anxious that at times she appears to be psychotic. She agrees to take BuSpar, but refuses all other medications save ibuprofen. I believe that the allergy diagnosis she received from Dr. Shah bears some influence on her psychiatric diagnosis. She feels like she has a stuffy head, which is consistent with her having seasonal allergies and a bulging tympanic membrane. It is also consistent with her sensation that her head is "unbalanced." Although I would like to her take a more powerful antianxiety medication, an antidepressant, or an antipsychotic, she refuses. Instead we will settle on BuSpar which she is agreeable to. As an aside, she had an alarming response to sertraline wherein she became homicidal toward her mother. She also had a "bad reaction" to Klonopin. Objective - Appearance Appearance: Well Developed/Nourished Dysmorphic Features: No Hygiene: Normal Grooming: Disheveled - Behavior Psychomotor Activities: Normal Exhibits Abnormal Movement: No - Attitude and Relatedness Attitude and Relatedness: Needy Eye Contact: Good - Speech Quality: Unpressured Latencies: Normal Quantity: Appropriate - Mood Patient's Decription of Mood: "Terrible" - Affect Observed Affect: Tearful Affect Consistent with: Dysphoria - Thought Process Patient's Thought Process: Coherent, Goal Directed Thought Content: Yes Passive Wish, No Suicidal Planning, No Homicidal Ideation, No Paranoid Ideation - Sensorium Experiencing Hallucinations: No, Sensorium is Clear Type of Hallucinations: Visual: No, Auditory: No, Command: No - Level of Consciousness Level of Consciousness: Agitated Orientation: Yes Intact, Yes Orientated to Time, Yes Orientated to Place, Yes Orientated to Person - Impulse Control Impulse Control: Intact - Insight and Judgement Insight and Judgement: Fair - Group Participation Particating in Group Activities: No - Medication Management Medication Management Adherence: Partial - Additional Observations Comments: Aurora is upset most of the time. She wants to get back home to her children. She has little insight into what brought her here, although she recognizes that her thoughts do not entirely make sense--she needs to breathe, she knows, but feels as though it is either not allowed or not going to happen. Today she asserts she wants to and then clarifies that she feels like she wants to , which is a subtle difference for her. Assessment - Assessment Merits Inpatient Hospitalization: For Immediate Safety Clinical Impression: Aurora is a 32-year-old woman who is the mother to five children. She is highly motivated to get back home to them. She is not certain she wants to take medications, but she is encouraged to try a small dose of Abilify, which she declined. She did agree to take BuSpar. This is unlikely to cause a significant shift in her mood or anxiety at this point. As she is quite focused on somatic symptoms, we will attempt to treat those to help reduce her anxiety. We will encourage use of ibuprofen and cold or warm packs. Plan - Plan Treatment Plan: Name: ANASTACIA ROY Birthdate: 1985 [id number] Continued Medication Management: Consider Medication Medications: Current Medications Acetaminophen (Tylenol Tab*) 650 mg PO Q4H PRN PRN Reason: for pain; or Temp >101 F Al Hydrox/Mg Hydrox/Simethicone (Maalox Plus*) 30 ml PO Q4H PRN PRN Reason: INDIGESTION Buspirone HCl (Buspar Tab*) 10 mg PO TID [facility] Cetirizine HCl (Zyrtec*) 10 mg PO DAILY [facility]; Protocol Last Admin: 12/18/17 09:10 Dose: Not Given Fluticasone Propionate (Flonase Nasal [place] 50mcg*) 2 spray BOTH NARES DAILY [facility] Last Admin: 12/18/17 09:10 Dose: Not Given Hydroxyzine HCl (Atarax Tab*) 50 mg PO Q6H PRN PRN Reason: ANXIETY - Discharge Plan Discharge Plan: Outpatient Follow Up Additional Comments: Aurora is highly anxious and has hints of being psychotic. We reintroduced the idea of medication to address depression, anxiety, and "odd thoughts." Aurora is very concerned about side effects and has the insight to know that if she were presented with a list of side effects, she would likely get them all. Aurora ended up not taking the medication. She instead agreed to BuSpar and attention to her somatic symptoms. She wants to go home, but continues to make statements such as, "I want to !" and then clarifies with "I feel like I want to ."
[2017-12-18] MEDS: busPIRone TAB* 10 MG PO SCH ×2 (16:29→22:49)
[2017-12-19] MEDS: Cetirizine* 10 MG TAB PO SCH ×2 (11:37→11:45)
[2017-12-19] MEDS: Fluticasone NASAL SPRAY 50MCG* 16 gm SPRAY BTL BOTH NARES SCH ×2 (11:37→11:45)
[2017-12-19] MEDS: busPIRone TAB* 10 MG PO SCH ×2 (11:37→14:14)
[2017-12-19] MEDS ORDERED: OLANzapine TAB* 5 MG PO SCH (14:00)
--- NOTE | 2017-12-19 14:59 | PN ---
Subjective - Subjective Date of Service: 12/19/17 Service Type: [id number] Hosp care 35 min high complexity Subjective: Aurora, Yulia Enrique, and I spent a lot of time together discussing the appropriateness of medication. Aurora ruminated and perseverated about the possibility of dying or having a reaction or feeling worse. We used some cajoling and some motivational interviewing to accomplish the goal of getting her to try Zyprexa. At long last, Mena and I managed to help her take a small dose of Zyprexa Zydis. She will be willing to take 2.5 mg tomorrow night, she states now. Aurora was alerted that a CPS call was placed, perhaps by the neighbors, and she is understandably upset by this. Our goal at this time, however, is to reduce stress and distract from distressing thoughts and to get her to sleep. Objective - Appearance Appearance: Well Developed/Nourished Dysmorphic Features: No Hygiene: Normal Grooming: Fairly Well Kept - Behavior Psychomotor Activities: Normal Exhibits Abnormal Movement: No - Attitude and Relatedness Attitude and Relatedness: Needy Eye Contact: Good - Speech Quality: Unpressured Latencies: Normal Quantity: Terse - Mood Patient's Decription of Mood: scared - Affect Observed Affect: Tearful - Thought Process Patient's Thought Process: Coherent, Goal Directed, Impoverished Thought Content: No Passive Wish, No Suicidal Planning, No Homicidal Ideation, No Paranoid Ideation - Sensorium Experiencing Hallucinations: No, Sensorium is Clear Type of Hallucinations: Visual: No, Auditory: No, Command: No - Level of Consciousness Level of Consciousness: Agitated Orientation: Yes Intact, Yes Orientated to Time, Yes Orientated to Place, Yes Orientated to Person - Impulse Control Impulse Control: Impaired - Insight and Judgement Insight and Judgement: Poor - Group Participation Particating in Group Activities: No - Medication Management Medication Management Adherence: Partial - Additional Observations Comments: Aurora is upset most of the time. She wants to get back home to her children. She has little insight into what brought her here, although she recognizes that her thoughts do not entirely make sense--she needs to breathe, she knows, but feels as though it is either not allowed or not going to happen. She is afraid to go to sleep, but is tired. She is incredibly anxious and finds relief in distraction and perhaps in some Zyprexa. Assessment - Assessment Merits Inpatient Hospitalization: For Immediate Safety Inpatient DSM-V Dx: F29 Clinical Impression: Aurora is a 32-year-old woman who is the mother to five children. She is highly motivated to get back home to them. She is not certain she wants to take medications, but she is encouraged to try a small dose of Abilify, which she declined. She did agree to take BuSpar. This is unlikely to cause a significant shift in her mood or anxiety at this point. Today she agreed instead to take a small amount of Zyprexa. She managed to take this without feeling allergic or "freaking out" and seemed to find a small amount of relief in this. It is still unclear whether these are obsessive/anxious or psychotic thoughts. Plan - Plan Treatment Plan: Name: ANASTACIA ROY Birthdate: 1985 [id number] Continued Medication Management: Different Medication Medications: Current Medications Acetaminophen (Tylenol Tab*) 650 mg PO Q4H PRN PRN Reason: for pain; or Temp >101 F Al Hydrox/Mg Hydrox/Simethicone (Maalox Plus*) 30 ml PO Q4H PRN PRN Reason: INDIGESTION Buspirone HCl (Buspar Tab*) 10 mg PO TID [facility] Last Admin: 12/19/17 14:14 Dose: Not Given Cetirizine HCl (Zyrtec*) 10 mg PO DAILY [facility]; Protocol Last Admin: 12/19/17 11:45 Dose: Not Given Fluticasone Propionate (Flonase Nasal [place] 50mcg*) 2 spray BOTH NARES DAILY [facility] Last Admin: 12/19/17 11:45 Dose: Not Given Hydroxyzine HCl (Atarax Tab*) 50 mg PO Q6H PRN PRN Reason: ANXIETY Ibuprofen (Motrin Tab*) 400 mg PO Q6H PRN PRN Reason: PAIN Olanzapine (Zyprexa Tab*) 5 mg PO BEDTIME [facility] Last Admin: 12/19/17 13:46 Dose: 1.25 mg - Discharge Plan Discharge Plan: Outpatient Follow Up Additional Comments: Aurora is highly anxious and has hints of being psychotic. We reintroduced the idea of medication to address depression, anxiety, and "odd thoughts." Aurora is very concerned about side effects and has the insight to know that if she were presented with a list of side effects, she would likely get them all. Aurora ended up not taking the medication. We made the choice to try Zyprexa with her and she did agree to a trial of it to see if she would be allergic to it (she is not). We will continue to push up the dose until we reach 5-10 mg at bedtime and hopefully some remission of anxiety and bizarre beliefs.
[2017-12-20] MEDS: Fluticasone NASAL SPRAY 50MCG* 16 gm SPRAY BTL BOTH NARES SCH (11:05)
[2017-12-20] MEDS: Cetirizine* 10 MG TAB PO SCH (11:05)
[2017-12-20] MEDS: Ibuprofen TAB* 400 MG PO PRN (18:23)
[2017-12-20] MEDS: OLANzapine TAB* 2.5 MG PO SCH (21:39)
[2017-12-21] MEDS: Cetirizine* 10 MG TAB PO SCH (10:38)
[2017-12-21] MEDS: Fluticasone NASAL SPRAY 50MCG* 16 gm SPRAY BTL BOTH NARES SCH (10:38)
--- NOTE | 2017-12-21 19:36 | PN ---
Subjective - Subjective Date of Service: 12/21/17 Service Type: [id number] Hosp care 15 min low complexity Subjective: Aurora was in her room and stays there best part of the day. Says she is fearful that she might stop breathing and but wouldn't take any meds. However, denies hallucinations, delusions, SI or HI. Appears anxious and tremulous. Objective - Appearance Appearance: Healthy Appearing Dysmorphic Features: No Hygiene: Normal Grooming: Fairly Well Kept - Behavior Psychomotor Activities: Abnormal-Increased Exhibits Abnormal Movement: No - Attitude and Relatedness Attitude and Relatedness: Guarded Eye Contact: Good - Speech Quality: Unpressured Latencies: Normal Quantity: Appropriate - Mood Patient's Decription of Mood: "Terrible" - Affect Observed Affect: Constricted Affect Consistent with: Dysphoria - Thought Process Patient's Thought Process: Coherent, Circumstantial Thought Content: No Passive Wish, No Suicidal Planning, No Homicidal Ideation, No Paranoid Ideation - Sensorium Experiencing Hallucinations: No, Sensorium is Clear Type of Hallucinations: Visual: No, Auditory: No, Command: No - Level of Consciousness Level of Consciousness: Alert Orientation: Yes Intact, Yes Orientated to Time, Yes Orientated to Place, Yes Orientated to Person - Impulse Control Impulse Control: Intact - Insight and Judgement Insight and Judgement: Impaired - Group Participation Particating in Group Activities: No - Medication Management Medication Management Adherence: No Assessment - Assessment Merits Inpatient Hospitalization: For Immediate Safety, For Stabilization, For Ongoing Evaluation, For Discharge Planning Inpatient DSM-V Dx: F29 Clinical Impression: Still symptomatic. Plan - Plan Treatment Plan: Name: ANASTACIA ROY Birthdate: 1985 [id number] Continued Medication Management: Continue Outpt Medication Medications: Current Medications Acetaminophen (Tylenol Tab*) 650 mg PO Q4H PRN PRN Reason: for pain; or Temp >101 F Al Hydrox/Mg Hydrox/Simethicone (Maalox Plus*) 30 ml PO Q4H PRN PRN Reason: INDIGESTION Cetirizine HCl (Zyrtec*) 10 mg PO DAILY [facility]; Protocol Last Admin: 12/21/17 10:38 Dose: Not Given Fluticasone Propionate (Flonase Nasal [place] 50mcg*) 2 spray BOTH NARES DAILY [facility] Last Admin: 12/21/17 10:38 Dose: Not Given Hydroxyzine HCl (Atarax Tab*) 50 mg PO Q6H PRN PRN Reason: ANXIETY Ibuprofen (Motrin Tab*) 400 mg PO Q6H PRN PRN Reason: PAIN Last Admin: 12/20/17 18:23 Dose: 400 mg Olanzapine (Zyprexa Tab*) 1.25 mg PO BEDTIME [facility] Last Admin: 12/20/17 21:39 Dose: Not Given - Discharge Plan Discharge Plan: Outpatient Follow Up Outpatient Program: [facility]
[2017-12-21] MEDS: OLANzapine TAB* 2.5 MG PO SCH (22:09)
[2017-12-22] MEDS: Cetirizine* 10 MG TAB PO SCH (08:59)
[2017-12-22] MEDS: Fluticasone NASAL SPRAY 50MCG* 16 gm SPRAY BTL BOTH NARES SCH (08:59)
[2017-12-22] MEDS ORDERED: diPHENhydraMINE PO* 25 MG PO ONE (10:24)
[2017-12-22] MEDS ORDERED: diPHENhydraMINE LIQ* 12.5 MG/5 ML UDC PO ONE (12:00)
--- NOTE | 2017-12-22 13:18 | PN ---
Subjective - Subjective Date of Service: 12/22/17 Service Type: [id number] Hosp care 35 min high complexity Subjective: Aurora continues to struggle to take medications, beginning to fall apart at the thought of it. She agrees to take portions of doses, but these are not therapeutic. We will continue to push medications, specifically antipsychotics. Objective - Appearance Appearance: Well Developed/Nourished Dysmorphic Features: No Hygiene: Normal Grooming: Disheveled - Behavior Psychomotor Activities: Normal Exhibits Abnormal Movement: No - Attitude and Relatedness Attitude and Relatedness: Needy Eye Contact: Good - Speech Quality: Unpressured Latencies: Normal Quantity: Appropriate - Mood Patient's Decription of Mood: "Anxious" - Affect Observed Affect: Labile Affect Consistent with: Dysphoria - Thought Process Patient's Thought Process: Coherent, Goal Directed Thought Content: Yes Passive Wish, No Suicidal Planning, No Homicidal Ideation, No Paranoid Ideation - Sensorium Experiencing Hallucinations: No, Sensorium is Clear Type of Hallucinations: Visual: No, Auditory: No, Command: No - Level of Consciousness Level of Consciousness: Agitated Orientation: Yes Intact, Yes Orientated to Time, Yes Orientated to Place, Yes Orientated to Person - Impulse Control Impulse Control: Tenuous - Insight and Judgement Insight and Judgement: Poor - Group Participation Particating in Group Activities: No - Medication Management Medication Management Adherence: Partial - Additional Observations Comments: Aurora is upset most of the time. She wants to get back home to her children. She has little insight into what brought her here, although she recognizes that her thoughts do not entirely make sense--she needs to breathe, she knows, but feels as though it is either not allowed or not going to happen. She is afraid to go to sleep, but is tired. She is incredibly anxious and finds relief in distraction and now she is taking Zydis. Assessment - Assessment Merits Inpatient Hospitalization: For Immediate Safety, For Stabilization, To Initiate Treatment Inpatient DSM-V Dx: F29 Clinical Impression: Aurora is a 32-year-old woman who is the mother to five children. She is highly motivated to get back home to them. She is not certain she wants to take medications, but she is encouraged to try Zyprexa. Plan - Plan Treatment Plan: Name: ANASTACIA ROY Birthdate: 1985 [id number] Medications: Current Medications Acetaminophen (Tylenol Tab*) 650 mg PO Q4H PRN PRN Reason: for pain; or Temp >101 F Al Hydrox/Mg Hydrox/Simethicone (Maalox Plus*) 30 ml PO Q4H PRN PRN Reason: INDIGESTION Cetirizine HCl (Zyrtec*) 10 mg PO DAILY [facility]; Protocol Last Admin: 12/22/17 08:59 Dose: Not Given Fluticasone Propionate (Flonase Nasal [place] 50mcg*) 2 spray BOTH NARES DAILY [facility] Last Admin: 12/22/17 08:59 Dose: Not Given Hydroxyzine HCl (Atarax Tab*) 50 mg PO Q6H PRN PRN Reason: ANXIETY Ibuprofen (Motrin Tab*) 400 mg PO Q6H PRN PRN Reason: PAIN Last Admin: 12/20/17 18:23 Dose: 400 mg Olanzapine (Zyprexa Tab*) 1.25 mg PO BEDTIME [facility] Last Admin: 12/21/17 22:09 Dose: Not Given - Discharge Plan Discharge Plan: Outpatient Follow Up Additional Comments: Aurora is highly anxious and has hints of being psychotic. We reintroduced the idea of medication to address depression, anxiety, and "odd thoughts." Aurora is very concerned about side effects and has the insight to know that if she were presented with a list of side effects, she would likely get them all. Aurora today agreed to take Risperdal M-tabs. 1 mg bid. This is a prelude to taking an injectable, which she was actually accepting of.
[2017-12-22] MEDS: Ibuprofen TAB* 400 MG PO PRN (17:14)
[2017-12-22] MEDS: OLANzapine TAB* 2.5 MG PO SCH (20:48)
[2017-12-22] MEDS: diPHENhydraMINE LIQ* 12.5 MG/5 ML UDC PO SCH (23:03)
[2017-12-23] MEDS: Cetirizine* 10 MG TAB PO SCH (09:10)
[2017-12-23] MEDS: Fluticasone NASAL SPRAY 50MCG* 16 gm SPRAY BTL BOTH NARES SCH (09:11)
[2017-12-23] MEDS: diPHENhydraMINE LIQ* 12.5 MG/5 ML UDC PO SCH ×3 (09:11→21:16)
[2017-12-23] MEDS ORDERED: risperiDONE-M * 1 MG TAB.ORADIS PO ONE (11:45)
--- NOTE | 2017-12-23 14:16 | PN ---
Subjective - Subjective Date of Service: 12/23/17 Service Type: [id number] Hosp care 35 min high complexity Subjective: Aurora agreed to take Risperdal and seems to find it helpful. She is making noises indicating that she will take more of it. She is scheduled to take 1.5 mg today and 2 mg tomorrow. She was initially interested in an injectable, but has backed away from that. Still, there is a possibility that she will benefit from these doses and be able to leave soon, as she is very motivated to get back to her family. Objective - Appearance Appearance: Well Developed/Nourished Dysmorphic Features: No Hygiene: Normal Grooming: Disheveled - Behavior Psychomotor Activities: Normal Exhibits Abnormal Movement: No - Attitude and Relatedness Attitude and Relatedness: Cooperative Eye Contact: Good - Speech Quality: Unpressured Latencies: Normal Quantity: Appropriate - Mood Patient's Decription of Mood: "Anxious" - Affect Observed Affect: Labile Affect Consistent with: Dysphoria - Thought Process Patient's Thought Process: Coherent Thought Content: Yes Passive Wish, No Suicidal Planning, No Homicidal Ideation, No Paranoid Ideation - Sensorium Experiencing Hallucinations: No, Sensorium is Clear Type of Hallucinations: Visual: No, Auditory: No, Command: No - Level of Consciousness Level of Consciousness: Alert Orientation: Yes Intact, Yes Orientated to Time, Yes Orientated to Place, Yes Orientated to Person - Impulse Control Impulse Control: Intact - Insight and Judgement Insight and Judgement: Poor - Group Participation Particating in Group Activities: No - Medication Management Medication Management Adherence: Partial - Additional Observations Comments: Aurora is upset most of the time. She wants to get back home to her children. She has little insight into what brought her here, although she recognizes that her thoughts do not entirely make sense--she needs to breathe, she knows, but feels as though it is either not allowed or not going to happen. With the addition or Risperdal, she seems as though her anxiety is relieved a bit. Assessment - Assessment Merits Inpatient Hospitalization: For Immediate Safety, For Stabilization, To Initiate Treatment Inpatient DSM-V Dx: F29 Clinical Impression: Aurora is a 32-year-old woman who is the mother to five children. She is highly motivated to get back home to them. She is not certain she wants to take medications, but she is currently interested in taking Risperdal. Plan - Plan Treatment Plan: Name: ANASTACIA ROY Birthdate: 1985 [id number] Continued Medication Management: Different Medication Medications: Current Medications Acetaminophen (Tylenol Tab*) 650 mg PO Q4H PRN PRN Reason: for pain; or Temp >101 F Al Hydrox/Mg Hydrox/Simethicone (Maalox Plus*) 30 ml PO Q4H PRN PRN Reason: INDIGESTION Cetirizine HCl (Zyrtec*) 10 mg PO DAILY [facility]; Protocol Last Admin: 12/23/17 09:10 Dose: Not Given Diphenhydramine HCl (Benadryl Liq*) 12.5 mg PO TID [facility] Last Admin: 12/23/17 13:43 Dose: Not Given Fluticasone Propionate (Flonase Nasal [place] 50mcg*) 2 spray BOTH NARES DAILY [facility] Last Admin: 12/23/17 09:11 Dose: Not Given Hydroxyzine HCl (Atarax Tab*) 50 mg PO Q6H PRN PRN Reason: ANXIETY Ibuprofen (Motrin Tab*) 400 mg PO Q6H PRN PRN Reason: PAIN Last Admin: 12/22/17 17:14 Dose: 400 mg Risperidone (Risperdal-M Tab *) 1 mg PO BID [facility]; Protocol - Discharge Plan Discharge Plan: Outpatient Follow Up Additional Comments: Aurora is highly anxious and has aspects of being psychotic. We reintroduced the idea of medication to address depression, anxiety, and "odd thoughts." Aurora is very concerned about side effects and has the insight to know that if she were presented with a list of side effects, she would likely get them all. Aurora today agreed to take Risperdal M-tabs. 1 mg bid. This is a prelude to taking an injectable, which she was actually accepting of.
[2017-12-23] MEDS: risperiDONE-M * 1 MG TAB.ORADIS PO SCH (18:57)
[2017-12-24] MEDS: Fluticasone NASAL SPRAY 50MCG* 16 gm SPRAY BTL BOTH NARES SCH (08:00)
[2017-12-24] MEDS: diPHENhydraMINE LIQ* 12.5 MG/5 ML UDC PO SCH ×5 (08:00→23:23)
[2017-12-24] MEDS: Cetirizine* 10 MG TAB PO SCH (08:00)
[2017-12-24] MEDS: risperiDONE-M * 1 MG TAB.ORADIS PO SCH ×2 (08:01→20:46)
--- NOTE | 2017-12-24 11:06 | PN ---
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 The patient is found crying on her bed in her room, clearly distraught and anxious. "I don't even know if it's right that I should keep breathing. I took the pill with the r-word like you said. It's not doing anything. How could only one milligram of a medicine do anything?" She is reassured that this is an appropriate starting dose for an adult and that she should be patient as it takes effect. "Could you raise it?" She also makes several other requests, such as an ear examination for "dizziness," lab work to check her vitamin status and a repeat head CT to check if she has a sinus infection. I assure her that her CT was within normal limits and does not bare repeating. Affirmation and support are given to the patient and she denies SI or HI. Objective - Appearance Appearance: Obese Dysmorphic Features: No Hygiene: Normal Grooming: Fairly Well Kept - Behavior Psychomotor Activities: Normal Exhibits Abnormal Movement: No - Attitude and Relatedness Attitude and Relatedness: Child Like Eye Contact: Fair - Speech Quality: Unpressured Latencies: Normal Quantity: Appropriate - Mood Patient's Decription of Mood: "Anxious" - Affect Observed Affect: Tense Affect Consistent with: Dysphoria - Thought Process Patient's Thought Process: Coherent Thought Content: No Passive Wish, No Suicidal Planning, No Homicidal Ideation, No Paranoid Ideation - Sensorium Experiencing Hallucinations: No, Sensorium is Clear Type of Hallucinations: Visual: No, Auditory: No, Command: No - Level of Consciousness Level of Consciousness: Alert Orientation: Yes Intact, Yes Orientated to Time, Yes Orientated to Place, Yes Orientated to Person - Impulse Control Impulse Control: Poor - Insight and Judgement Insight and Judgement: Impaired - Group Participation Particating in Group Activities: No - Medication Management Medication Management Adherence: Partial Assessment - Assessment Merits Inpatient Hospitalization: For Immediate Safety, For Stabilization Inpatient DSM-V Dx: F29 Clinical Impression: 32 y.o. single, white female with a history of developmental delay admitted on an involuntary 9.39 legal status after presenting to the hospital with severe anxious distress and obsessive, over-valuated fixations on the idea that might stop breathing or in her sleep leading to sleeplessness and inability to care for herself or her 5 children. Plan - Plan Treatment Plan: Name: ANASTACIA ROY Birthdate: 1985 [id number] The patient has accepted initiation of risperidone M-tab 1mg PO BID. I will increase this, per her preference, to 2mg PO BID. I will also draw vitamin levels per her request. The patient could not be reasonably expected to function safely in a less restrictive setting and therefore warrants further inpatient psychiatric care. Continued Medication Management: Start Medication Medications: Current Medications Acetaminophen (Tylenol Tab*) 650 mg PO Q4H PRN PRN Reason: for pain; or Temp >101 F Al Hydrox/Mg Hydrox/Simethicone (Maalox Plus*) 30 ml PO Q4H PRN PRN Reason: INDIGESTION Cetirizine HCl (Zyrtec*) 10 mg PO DAILY ELOY; Protocol Last Admin: 12/24/17 08:00 Dose: Not Given Diphenhydramine HCl (Benadryl Liq*) 12.5 mg PO TID ELO[facility] Last Admin: 12/24/17 08:43 Dose: 12.5 mg Fluticasone Propionate (Flonase Nasal [place] 50mcg*) 2 spray BOTH NARES DAILY [facility] Last Admin: 12/24/17 08:00 Dose: Not Given Hydroxyzine HCl (Atarax Tab*) 50 mg PO Q6H PRN PRN Reason: ANXIETY Ibuprofen (Motrin Tab*) 400 mg PO Q6H PRN PRN Reason: PAIN Last Admin: 12/22/17 17:14 Dose: 400 mg Risperidone (Risperdal-M Tab *) 2 mg PO BID ELOY; Protocol - Discharge Plan Discharge Plan: Inpatient Hospitalization
[2017-12-24] MEDS: Ibuprofen TAB* 400 MG PO PRN (12:46)
[2017-12-25] MEDS: Cetirizine* 10 MG TAB PO SCH (08:24)
[2017-12-25] MEDS: diPHENhydraMINE LIQ* 12.5 MG/5 ML UDC PO SCH ×3 (08:24→20:10)
[2017-12-25] MEDS: Fluticasone NASAL SPRAY 50MCG* 16 gm SPRAY BTL BOTH NARES SCH (08:24)
[2017-12-25] MEDS ORDERED: LoraTADine TAB(NF) 10 MG TAB (AUTOSUB to CETIRIZINE) PO ONE (10:21)
[2017-12-25] MEDS: Cholecalciferol TAB* 1000 UNITS PO SCH (11:00)
[2017-12-25] MEDS: risperiDONE-M * 1 MG TAB.ORADIS PO SCH ×3 (11:00→20:09)
[2017-12-25] MEDS: Ibuprofen TAB* 400 MG PO PRN (14:04)
[2017-12-25] MEDS ORDERED: Diazepam TAB(*) 10 MG PO ONE (15:52)
[2017-12-25] MEDS: Diazepam TAB(*) 5 MG PO SCH (16:17)
[2017-12-26] MEDS: Ibuprofen TAB* 400 MG PO PRN ×2 (05:40→19:01)
[2017-12-26] MEDS: Diazepam TAB(*) 5 MG PO SCH ×4 (06:00→20:57)
[2017-12-26] MEDS: Cholecalciferol TAB* 1000 UNITS PO SCH (08:27)
[2017-12-26] MEDS: diPHENhydraMINE LIQ* 12.5 MG/5 ML UDC PO SCH ×3 (08:27→20:57)
[2017-12-26] MEDS: risperiDONE-M * 1 MG TAB.ORADIS PO SCH (08:27)
[2017-12-26] MEDS: Fluticasone NASAL SPRAY 50MCG* 16 gm SPRAY BTL BOTH NARES SCH (08:27)
[2017-12-26] MEDS: Cetirizine* 10 MG TAB PO SCH (09:20)
[2017-12-26] MEDS ORDERED: Paliperidone SUSTENNA* 234 MG/1.5 ML IM ONE (09:56)
--- NOTE | 2017-12-26 14:26 | PN ---
Subjective - Subjective Date of Service: 12/26/17 Service Type: 83972 Hosp care 25 min moderate complexity Subjective: 234 mg of Invega Sustenna was administered to Aurora today. Despite my request for her to take additional medication (an SSRI, for example), she declined saying she takes enough medication. She is responding well to being here, coming out of her room more, and may be becoming used to the idea of going home on Friday. Objective - Appearance Appearance: Well Developed/Nourished Dysmorphic Features: No Hygiene: Normal Grooming: Disheveled - Behavior Psychomotor Activities: Abnormal-Increased Exhibits Abnormal Movement: No - Attitude and Relatedness Attitude and Relatedness: Needy Eye Contact: Good - Speech Quality: Unpressured Latencies: Normal Quantity: Appropriate - Mood Patient's Decription of Mood: "Okay" - Affect Observed Affect: Constricted Affect Consistent with: Dysphoria - Thought Process Patient's Thought Process: Coherent Thought Content: No Passive Wish, No Suicidal Planning, No Homicidal Ideation, No Paranoid Ideation - Sensorium Experiencing Hallucinations: No, Sensorium is Clear Type of Hallucinations: Visual: No, Auditory: No, Command: No - Level of Consciousness Level of Consciousness: Agitated Orientation: Yes Intact, Yes Orientated to Time, Yes Orientated to Place, Yes Orientated to Person - Impulse Control Impulse Control: Tenuous - Insight and Judgement Insight and Judgement: Impaired - Group Participation Particating in Group Activities: Yes - Medication Management Medication Management Adherence: Partial - Additional Observations Comments: Aurora is upset most of the time. She wants to get back home to her children. She has little insight into what brought her here, although she recognizes that her thoughts do not entirely make sense--she needs to breathe, she knows, but feels as though it is either not allowed or not going to happen. Today she accepted most of her medications. Assessment - Assessment Merits Inpatient Hospitalization: For Immediate Safety Inpatient DSM-V Dx: F29 Clinical Impression: Aurora is a 32-year-old woman who is the mother to five children. She is highly motivated to get back home to them. She is not certain she wants to take medications. She has agreed to take Invega Sustenna in an effort to reduce thoughts that are interfering with her ability to function. Plan - Plan Treatment Plan: Name: ANASTACIA ROY Birthdate: 1985 [id number] Continued Medication Management: Start Medication Medications: Current Medications Acetaminophen (Tylenol Tab*) 650 mg PO Q4H PRN PRN Reason: for pain; or Temp >101 F Al Hydrox/Mg Hydrox/Simethicone (Maalox Plus*) 30 ml PO Q4H PRN PRN Reason: INDIGESTION Cetirizine HCl (Zyrtec*) 10 mg PO DAILY [facility] Last Admin: 12/26/17 09:20 Dose: 10 mg Cholecalciferol (Vitamin D Tab*) 1,000 units PO DAILY [facility] Last Admin: 12/26/17 08:27 Dose: 1,000 units Diazepam (Valium Tab(*)) 5 mg PO TID [facility] Diphenhydramine HCl (Benadryl Liq*) 12.5 mg PO TID [facility] Last Admin: 12/26/17 08:27 Dose: Not Given Fluticasone Propionate (Flonase Nasal [place] 50mcg*) 2 spray BOTH NARES DAILY [facility] Last Admin: 12/26/17 08:27 Dose: Not Given Hydroxyzine HCl (Atarax Tab*) 50 mg PO Q6H PRN PRN Reason: ANXIETY Ibuprofen (Motrin Tab*) 400 mg PO Q6H PRN PRN Reason: PAIN Last Admin: 12/26/17 05:40 Dose: 400 mg Paliperidone Palmitate (Invega Sustenna*) 156 mg IM ONCE ONE Stop: 12/29/17 09:01 - Discharge Plan Discharge Plan: Outpatient Follow Up Additional Comments: Aurora is highly anxious and has aspects of being psychotic. We reintroduced the idea of medication to address depression, anxiety, and "odd thoughts." Aurora is very concerned about side effects and has the insight to know that if she were presented with a list of side effects, she would likely get them all. Aurora today took Invega Sustenna. We plan to administer the second injection on Friday and then discharge her.
[2017-12-27] MEDS: diPHENhydraMINE LIQ* 12.5 MG/5 ML UDC PO SCH ×3 (07:56→21:10)
[2017-12-27] MEDS: Fluticasone NASAL SPRAY 50MCG* 16 gm SPRAY BTL BOTH NARES SCH (07:56)
[2017-12-27] MEDS: Cholecalciferol TAB* 1000 UNITS PO SCH (07:57)
[2017-12-27] MEDS: Diazepam TAB(*) 5 MG PO SCH ×3 (07:58→21:10)
[2017-12-27] MEDS: Cetirizine* 10 MG TAB PO SCH (07:59)
[2017-12-27] MEDS: Ibuprofen TAB* 400 MG PO PRN (12:50)
[2017-12-27] MEDS: Acetaminophen TAB* 325 MG PO PRN (19:10)
[2017-12-28] MEDS: Cetirizine* 10 MG TAB PO SCH (08:01)
[2017-12-28] MEDS: Diazepam TAB(*) 5 MG PO SCH ×3 (08:02→20:06)
[2017-12-28] MEDS: diPHENhydraMINE LIQ* 12.5 MG/5 ML UDC PO SCH ×3 (08:02→20:06)
[2017-12-28] MEDS: Cholecalciferol TAB* 1000 UNITS PO SCH (08:02)
[2017-12-28] MEDS: Fluticasone NASAL SPRAY 50MCG* 16 gm SPRAY BTL BOTH NARES SCH (08:02)
[2017-12-28] MEDS: Acetaminophen TAB* 325 MG PO PRN ×2 (08:40→13:54)
[2017-12-29] MEDS: Cholecalciferol TAB* 1000 UNITS PO SCH (07:05)
[2017-12-29 08:27] VITALS: BP 91/62
[2017-12-29] MEDS: Diazepam TAB(*) 5 MG PO SCH ×2 (08:35→14:06)
[2017-12-29] MEDS: Fluticasone NASAL SPRAY 50MCG* 16 gm SPRAY BTL BOTH NARES SCH (08:35)
[2017-12-29] MEDS: diPHENhydraMINE LIQ* 12.5 MG/5 ML UDC PO SCH ×2 (08:35→14:06)
[2017-12-29] MEDS: Cetirizine* 10 MG TAB PO SCH (08:35)
[2017-12-29] MEDS ORDERED: Paliperidone SUSTENNA* 156 MG/1 ML IM ONE (09:00)
[2017-12-29] MEDS: Ibuprofen TAB* 400 MG PO PRN (14:07)
--- NOTE | 2017-12-30 22:42 | DS ---
CC: [facility].* DISCHARGE SUMMARY: DATE OF ADMISSION: 12/15/17 DATE OF DISCHARGE: 12/29/17 PROVIDER: Idalmis Alfonso NP in Psychiatry. SUPERVISING PHYSICIAN: Parish Hoskins MD * (DICTATED BY IDALMIS ALFONSO NP ) DIAGNOSES: Beg[place] I: Psychosis, not otherwise specified; generalized anxiety disorder. CONDITION AT THE TIME OF DISCHARGE: Improved. Psychiatrically cleared. Stable. Did not participate in many groups, was not particularly social with peers. Her family is agreeable to discharge. She has tried very hard here. She tolerated new meds well, although it was extremely hard to get her to take them. She has been referred [facility]. MENTAL STATUS EXAM: At the time of discharge, the patient is calm, cooperative , and makes good eye contact. She is alert and oriented x3. She is tearful in the bed, upset. Her grooming is adequate. Her speech pace is normal. Her thought processes are logical. She is not psychotic, delusional. She denies AH , VH, SI, and HI. Insight is fair. Judgment is good. Impulse control is good. She states she is willing to followup. DISCHARGE INSTRUCTIONS: A. Medications: 1. Vitamin D 1000 units p.o. daily. 2. Diazepam 2.5 mg p.o. up to t.i.d. p.r.n. anxiety. 3. Invega Sustenna 156 mg q.28 days, most recent injection on 12/29/17, next injection due 01/26/18. B. Diet: Regular. C. Activities: As tolerated. She is a nonsmoker. There are no studies pending at the time of discharge. D. Followup care: Aurora has appointments with [facility]. E. Substance abuse followup is not indicated. HOSPITAL COURSE: A. Chief Complaint: "I feel that I should not be breathing. " "I am afraid to sleep because I am afraid I will in my sleep." The patient is a 32-year-old white female who is partnered, who appears somewhat older than her stated age. She is here on a 9.39 status after being brought in by herself and her significant other, Elmer. The case is that uArora that has not slept well for about two weeks. This is following her mother telling her that one of her friends had in her sleep and Aurora is taking this very personally and believing that her own breathing is irregular that it should be the way it is. For example, she does not believe that her stomach should move when she is breathing. She feels as though when she walks and breathes she should not be doing both at the same time and at the same with both of these instances, she knows that these are normal things to do. She has five kids who are at home right now with either her boyfriend or a supply and distribution manager depending on the time of day. She seems surprised when I asked her if she is again. She does not think so. She cannot sleep because of the report that someone in her sleep. She is also worried because she states she has "fluid on my ears" and she states this is according to "one hospital." She is currently thinking both stabbing herself on the chest with a knife. She is very worried, anxious, and tearful and wipes her nose on her shirt. She has tattoos on her arms that her people's names. Her stressors include her job, finances, revelation that a friend in her sleep, the possibility that she has HIV, which she does not, that she has hurt her head, that her ears are hurt , that she might have a UTI. In general, she is incredibly worried woman, who appears to somatize things. Her symptoms include worrying and anxiety. She appears physically tense. She has a hard time attending to what I am saying. She is restless, shifting around a lot and her sleep is indeed disturbed. B. Psychiatric treatments rendered: The patient was admitted to the adult behavioral unit and placed on 15-minute checks for safety. Aurora did well on the unit eventually and went to very few groups. She interacted moderately with peers. She was very difficult to encourage to take medications and although sertraline or fluoxetine or another SSRI would be helpful, she was not willing to try any of those again. We did start her on Invega Sustenna, she got a 234 injection on the 12/26/17 and the 156 on 12/29/17. She also occasionally took Valium 2.5 mg. Her HA1c was low at 3.9, her lipids were normal, triglycerides 86, cholesterol 134, LDL cholesterol 80, HDL cholesterol 37.1. She was also worried about her vitamin potential deficiencies, vitamin B12 was 352, vitamin D total was 15.8, which is low and thus we started a vitamin D supplement. Folate was normal at 5.12. Incidentally her TSH was 1.94. I did call her boyfriend, Elmer who was surprised at her level of distress. He said that she is always afraid of medications, but she has never been this anxious before. In general, she is improved and is ready for discharge, although she continues to have obsessive thoughts regarding her breathing and her anxiety. It is my hope that outpatient when she is back with her children, her anxiety will be reduced. It is also hopeful that she will follow up with outpatient providers. We will continue to work with her perhaps with her therapy setting on her anxiety. IDALMIS ALFONSO, [place] [id number]/[facility] #: [id number] ELROY
== END 2017-12-29 15:00 | disposition home or self-care (01) | DRG 751 ==
LOC: ED 07:06 → BSU 16:46
PROVIDERS: ADMIT Psychiatry & Neurology Psychiatry; ATTEND Psychiatry & Neurology Psychiatry
DX: F29 Unspecified psychosis not due to a substance or known physiological condition (principal); R45.851 Suicidal ideations; F41.1 Generalized anxiety disorder; R45.850 Homicidal ideations; F32.9 Major depressive disorder, single episode, unspecified; H93.91 Unspecified disorder of right ear; E87.6 Hypokalemia; R62.50 Unspecified lack of expected normal physiological development in childhood; Z88.8 Allergy status to other drugs, medicaments and biological substances; Z86.14 Personal history of Methicillin resistant Staphylococcus aureus infection; Z82.49 Family history of ischemic heart disease and other diseases of the circulatory system; Z72.0 Tobacco use
CPT/HCPCS: 36415; 70450; 71046; 80053; 80061; 80307; 80320; 80329; 81003; 81015; 82306; 82607; 82746; 83036; 84132; 84443; 84484; 84702; 85025; 85379; 86703; 87086; 87106; 99222; 99231; 99232; 99233; 99238; 99284; A9270-GY; G0480; J2426

== ENCOUNTER 2017-12-31 16:28 | Emergency (ER) | payer OTHER ==
[2017-12-31 17:05] LABS: ABS Basophils 0 10^3/ul (0-0.2); ABS Eosinophils 0 10^3/ul (0-0.6); ABS Lymphocytes 1.2 10^3/ul (1.0-4.8); ABS Monocytes 0.4 10^3/ul (0-0.8); ABS Neutrophils 5.2 10^3/ul (1.5-7.7); ABS Nucleated RBC 0 10^3/ul; Eosinophil % 0.5 % (0-6); Hematocrit 38 % (35-47); Hemoglobin 13.2 g/dl (12.0-16.0); Lymphocyte % 16.9 % (25-47); Mean Corpuscular HGB Conc 35 g/dl (31-36); Mean Corpuscular Hemoglobin 29 pg (27-31); Mean Corpuscular Volume 84 fL (80-97); Mean Platelet Volume 7.3 um3 (7.4-10.4); Nucleated Red Blood Cells % 0; Platelet Count 187 10^3/ul (150-450); Red Cell Distribution Width 15 % (10.5-15); White Blood Count 6.9 10^3/ul (3.5-10.8)
--- NOTE | 2017-12-31 17:14 | ED ---
Psychiatric Complaint - HPI Summary HPI Summary: This pt is a 32 y/o female presenting to [facility] c/o SI thoughts. Pt states "I feel like I don't want to breathe anymore." Per mother, pt wants to be better but is unable to. Mother reports pt has had decreased appetite. Cousin states yesterday was her full day at home after discharge from hospitalization at [facility] for mental health. Per cousin, pt had outpatient therapy yesterday. Pt was admitted on 12/15/17 at [facility] and was given Invega and Valium. Pt states she got "sharp shock" on her abdomen. Pt denies prior suicidal attempts. Denies tobacco, drug, or alcohol use. PMHx includes elevated liver enzymes, Alpha-1 antitrypsin deficiency. - History Of Current Complaint Chief Complaint: EDMentalHealth Time Seen by Provider: 12/31/17 16:43 Hx Obtained From: Patient, Family/Registered Nurse [facility] Hx Last Menstrual Period: 2 weeks ago Onset/Duration: Lasting Days, Still Present Timing: Days Severity Currently: Moderate Character: Depressed, Anxious Aggravating Factor(s): Nothing Alleviating Factor(s): Nothing Associated Signs And Symptoms: Positive: Appetite Change Related History: Positive For: Prior Psychiatric Issues Has Suicidal: Reports: Thoughts. Denies: With A Plan, Has Prior Attempt(s) Has Homicidal: Denies: Thoughts, With A Plan - Allergies/Home Medications Allergies/Adverse Reactions: Allergies Allergy/AdvReac Type Severity Reaction Status Date / Time citalopram [From Celexa] Allergy Hives Verified 12/31/17 17:24 clonazepam [From Klonopin] AdvReac Insomnia Verified 12/31/17 17:24 sertraline AdvReac Insomnia Verified 12/31/17 17:24 PMH/Surg Hx/FS Hx/Imm Hx Endocrine/Hematology History: Denies: Hx Anticoagulant Therapy, Hx Diabetes, Hx Thyroid Disease Cardiovascular History: Denies: Hx Hypertension Respiratory History: Reports: Hx Asthma - prescribed albuterol inhaler in personal belongings Denies: Hx Chronic Obstructive Pulmonary Disease (COPD) GI History: Denies: Hx Ulcer Sensory History: Denies: Hx Contacts or Glasses, Hx Hearing Aid Opthamlomology History: Denies: Hx Contacts or Glasses Psychiatric History: Reports: Hx Panic Disorder, Hx Inpatient Treatment - pt relates "a long time ago" at [facility], Hx of Violent Episodes Against Others Denies: Hx Bipolar Disorder - Surgical History Surgery Procedure, Year, and Place: pt denies hx Infectious Disease History: No Infectious Disease History: Reports: Hx of Known/Suspected MRSA - in urine Denies: Hx Clostridium Difficile, Hx Hepatitis, Hx Human Immunodeficiency Virus (HIV), Hx Shingles, Hx Tuberculosis, Hx Known/Suspected VRE, Hx Known/ Suspected VRSA, History Other Infectious Disease, Traveled Outside the [place] in Last 30 Days - Family History Known Family History: Positive: Hypertension Negative: Cardiac Disease - Social History Alcohol Use: None Alcohol Amount: pt denies alcohol use Substance Use Type: Reports: None Substance Use Comment - Amount & Last Used: pt denies drug use Smoking Status (MU): Never Smoked Tobacco Amount Used/How Often: Pt denies tobacco use Length of Time of Smoking/Using Tobacco: pt denies tobacco use Have You Smoked in the Last Year: No Review of Systems Constitutional: Other - decreased appetite Negative: Fever, Chills Cardiovascular: Negative Respiratory: Negative Gastrointestinal: Negative Genitourinary: Negative Psychological: Other - SI thoughts Positive: Anxious, Depressed. Negative: Other - HI thoughts/plan All Other Systems Reviewed And Are Negative: Yes Physical Exam - Summary Physical Exam Summary: Appearance: Well appearing, no pain distress Skin: warm, dry, reflects adequate perfusion Head/face: normal Eyes: EOMI, EDUARDA ENT: normal Neck: supple, non-tender Respiratory: CTA, breath sounds present Cardiovascular: Heart is tachycardic, pulses symmetrical Abdomen: non-tender, soft Bowel: present Musculoskeletal: normal, strength/ROM intact Neuro: normal, sensory motor intact, A&Ox3 Psych: labile affect Triage Information Reviewed: Yes Vital Signs On Initial Exam: Initial Vitals Temp Pulse Resp BP Pulse Ox 97.5 F 120 19 133/97 98 12/31/17 16:31 12/31/17 16:31 12/31/17 16:31 12/31/17 16:31 12/31/17 16:31 Vital Signs Reviewed: Yes Diagnostics - Vital Signs Vital Signs Temp Pulse Resp BP Pulse Ox 12/31/17 16:31 97.5 F 120 19 133/97 98 - Laboratory Lab Results: Lab Results 12/31/17 Range/Units 16:55 WBC 6.9 (3.5-10.8) 10^3/ul RBC 4.50 (4.00-5.40) 10^6/ul Hgb 13.2 (12.0-16.0) g/dl Hct 38 (35-47) % MCV 84 (80-97) fL MCH 29 (27-31) pg MCHC 35 (31-36) g/dl RDW 15 (10.5-15) % Plt Count 187 (150-450) 10^3/ul MPV 7.3 L (7.4-10.4) um3 Neut % (Auto) 75.7 (38-83) % Lymph % (Auto) 16.9 L (25-47) % [facility] % (Auto) 6.4 (0-7) % Eos % (Auto) 0.5 (0-6) % Baso % (Auto) 0.5 (0-2) % Absolute Neuts (auto) 5.2 (1.5-7.7) 10^3/ul Absolute Lymphs (auto) 1.2 (1.0-4.8) 10^3/ul Absolute Monos (auto) 0.4 (0-0.8) 10^3/ul Absolute Eos (auto) 0 (0-0.6) 10^3/ul Absolute Basos (auto) 0 (0-0.2) 10^3/ul Absolute Nucleated RBC 0 10^3/ul Nucleated RBC % 0 Result Diagrams: 12/31/17 16:55 12/31/17 16:57 Lab Statement: Any lab studies that have been ordered have been reviewed, and results considered in the medical decision making process. - EKG 1706 Cardiac Rate: Tachycardia - at 117 bpm EKG Rhythm: Sinus Tachycardia ST Segment: Normal EKG Interpretation: LAD. Normal ST and baseline artifact. Course/Dx - Course Course Of Treatment: Patient was started on is prone here as per the psychiatrist Assessment/Plan: Pt was medically cleared. She had a mental health evaluation and her case was reviewed by Dr. Hoskins, psychiatrist. Dr. Hoskins recommends discharge. Pt will be discharged with dx of unspecified mood disorder. - Differential Dx/Clinical Impression Provider Diagnosis: Mood disorder - Physician Notifications Discussed Care Of Patient With: Mental Health Time Discussed With Above Provider: 17:04 Instructed by Provider To: Other - Mental health unit is aware of medical clearance. Discharge - Sign-Out/Discharge Documenting (check all that apply): Patient Departure - Discharge - Discharge Plan Condition: Stable Disposition: HOME Patient Education Materials: Depression (ED), Generalized Anxiety Disorder (ED) Referrals: [facility] (Psychiatry) [Outside] (Please call and schedule an appointment with a psychiatrist as soon as possible.) No Primary Care Phys,NOPCP [Primary Care Provider] - - Billing Disposition and Condition Condition: STABLE Disposition: Home
[2017-12-31 17:23] LABS: Urine Appearance Cloudy; Urine Blood 1+ (Negative); Urine Color Yellow; Urine Ketones Negative (Negative); Urine Protein Negative (Negative); Urine Red Blood Cell 1+(3-5/hpf) (Absent); Urine Specific Gravity 1.023 (1.010-1.030); Urine Urobilinogen Negative (Negative); Urine White Blood Cell Trace(0-5/hpf) (Absent)
[2017-12-31 17:25] LABS: EGFR Non-African American 128.1 (>60)
[2017-12-31 18:18] VITALS: BP 136/90
[2017-12-31] MEDS ORDERED: busPIRone TAB* 10 MG PO ONE (18:57)
== END 2017-12-31 19:29 | disposition home or self-care (01) ==
LOC: ED 16:28
DX: F39 Unspecified mood [affective] disorder (principal); R00.0 Tachycardia, unspecified; J45.909 Unspecified asthma, uncomplicated; F41.0 Panic disorder [episodic paroxysmal anxiety]; Z88.8 Allergy status to other drugs, medicaments and biological substances; Z82.49 Family history of ischemic heart disease and other diseases of the circulatory system
CPT/HCPCS: 36415; 80053; 80307; 80320; 80329; 81003; 81015; 84443; 84702; 85025; 86803; 87077; 87086; 93005; 99282; A9270-GY; G0480

== ENCOUNTER 2018-01-02 12:15 | Inpatient (IN) | payer OTHER ==
[2018-01-02 13:18] LABS: ABS Basophils 0 10^3/ul (0-0.2); ABS Eosinophils 0.1 10^3/ul (0-0.6); ABS Lymphocytes 1.2 10^3/ul (1.0-4.8); ABS Monocytes 0.4 10^3/ul (0-0.8); ABS Neutrophils 4.1 10^3/ul (1.5-7.7); ABS Nucleated RBC 0 10^3/ul; Eosinophil % 1.3 % (0-6); Hematocrit 39 % (35-47); Hemoglobin 13.3 g/dl (12.0-16.0); Lymphocyte % 21.4 % (25-47); Mean Corpuscular HGB Conc 35 g/dl (31-36); Mean Corpuscular Hemoglobin 29 pg (27-31); Mean Corpuscular Volume 84 fL (80-97); Mean Platelet Volume 7.1 um3 (7.4-10.4); Nucleated Red Blood Cells % 0; Platelet Count 200 10^3/ul (150-450); Red Cell Distribution Width 15 % (10.5-15); White Blood Count 5.8 10^3/ul (3.5-10.8)
[2018-01-02 13:30] LABS: EGFR Non-African American 130.8 (>60)
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
[2018-01-02 14:23] LABS: Urine Appearance Clear; Urine Blood 1+ (Negative); Urine Color Yellow; Urine Ketones Negative (Negative); Urine Protein Negative (Negative); Urine Red Blood Cell Trace(0-2/hpf) (Absent); Urine Specific Gravity 1.021 (1.010-1.030); Urine Urobilinogen Negative (Negative); Urine White Blood Cell Trace(0-5/hpf) (Absent)
[2018-01-02] MEDS ORDERED: diPHENhydraMINE LIQ* 12.5 MG/5 ML UDC PO ONE (14:29)
[2018-01-02] MEDS ORDERED: Ibuprofen TAB* 400 MG PO PRN (17:37)
[2018-01-02] MEDS: Diazepam TAB(*) 5 MG PO SCH ×2 (17:41→21:34)
[2018-01-02] MEDS ORDERED: Al Hydrox/Mg Hydrox/Simet LIQ* 30 ML UDC PO PRN (19:13)
[2018-01-03] MEDS: Diazepam TAB(*) 5 MG PO PRN ×2 (02:34→17:56)
[2018-01-03] MEDS: Cholecalciferol TAB* 1000 UNITS PO SCH (07:41)
[2018-01-03] MEDS: Diazepam TAB(*) 5 MG PO SCH ×3 (07:41→21:10)
[2018-01-03] MEDS: Vitamin THERAPEUTIC TAB PO SCH (07:41)
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
[2018-01-04] MEDS: Cholecalciferol TAB* 1000 UNITS PO SCH (08:20)
[2018-01-04] MEDS: Vitamin THERAPEUTIC TAB PO SCH (08:21)
[2018-01-04] MEDS: Diazepam TAB(*) 5 MG PO SCH ×3 (08:21→21:39)
[2018-01-05] MEDS: Diazepam TAB(*) 5 MG PO PRN (03:21)
[2018-01-05] MEDS: Cholecalciferol TAB* 1000 UNITS PO SCH (08:29)
[2018-01-05] MEDS: Diazepam TAB(*) 5 MG PO SCH ×2 (08:29→13:46)
[2018-01-05] MEDS: Vitamin THERAPEUTIC TAB PO SCH (08:30)
[2018-01-05] MEDS: Acetaminophen TAB* 325 MG PO PRN (12:27)
--- NOTE | 2018-01-05 14:47 | PN ---
Subjective - Subjective Date of Service: 01/05/18 Service Type: 28069 Hosp care 25 min moderate complexity Subjective: Aurora continues to struggle. She cries at times feeling like she'll never get better. She is distressed and doesn't come out of her room much. She is scheduled to take mirtazepine at night. Objective - Appearance Appearance: Well Developed/Nourished Dysmorphic Features: No Hygiene: Normal Grooming: Fairly Well Kept - Behavior Psychomotor Activities: Normal Exhibits Abnormal Movement: No - Attitude and Relatedness Attitude and Relatedness: Needy Eye Contact: Good - Speech Quality: Unpressured Latencies: Normal Quantity: Appropriate - Mood Patient's Decription of Mood: "Okay" - Affect Observed Affect: Tearful - Thought Process Patient's Thought Process: Coherent Thought Content: Yes Passive Wish, No Suicidal Planning, No Homicidal Ideation, No Paranoid Ideation - Sensorium Experiencing Hallucinations: No, Sensorium is Clear Type of Hallucinations: Visual: No, Auditory: No, Command: No - Level of Consciousness Level of Consciousness: Alert Orientation: Yes Intact, Yes Orientated to Time, Yes Orientated to Place, Yes Orientated to Person - Impulse Control Impulse Control: Impaired - Insight and Judgement Insight and Judgement: Impaired - Group Participation Particating in Group Activities: No - Medication Management Medication Management Adherence: Partial - Additional Observations Comments: Aurora is not really going to groups. She again will be encouraged to do so. Her hygiene is adequate and she is calm. The obsessive thoughts of breathing continue, but she seems to be becoming accustomed to them. Assessment - Assessment Merits Inpatient Hospitalization: For Immediate Safety, For Stabilization Inpatient DSM-V Dx: F41.9 Clinical Impression: Aurora continues to struggle with anxiety that is overwhelming. The psychotic/ obsessive nature of her worries are subsiding. Plan - Plan Treatment Plan: Name: ANASTACIA ROY Birthdate: 1985 [id number] Continued Medication Management: Start Medication Medications: Current Medications Acetaminophen (Tylenol Tab*) 650 mg PO Q4H PRN PRN Reason: PAIN or TEMP > 101 F Last Admin: 01/05/18 12:27 Dose: 650 mg Al Hydrox/Mg Hydrox/Simethicone (Maalox Plus*) 30 ml PO Q4H PRN PRN Reason: INDIGESTION Cholecalciferol (Vitamin D Tab*) 1,000 units PO DAILY REPLACED BY [facility] Last Admin: 01/05/18 08:29 Dose: 1,000 units Diazepam (Valium Tab(*)) 2.5 mg PO TID ELOY Last Admin: 01/05/18 13:46 Dose: 2.5 mg Diazepam (Valium Tab(*)) 2.5 mg PO TID PRN PRN Reason: ANXIETY Last Admin: 01/05/18 03:21 Dose: 2.5 mg Ibuprofen (Motrin Tab*) 400 mg PO Q6H PRN PRN Reason: PAIN Last Admin: 01/04/18 09:01 Dose: 400 mg Multivitamins (Theragran Tab*) 1 tab PO DAILY REPLACED BY [facility] Last Admin: 01/05/18 08:30 Dose: 1 tab - Discharge Plan Discharge Plan: Outpatient Follow Up Additional Comments: Start mirtazepine 7.5 mg at bedtime to promote sleep, reduction in anxiety. Continue to monitor obsessive thoughts and encourage participation. I also assigned her to work on art projects to reduce her anxiety.
[2018-01-05] MEDS: Mirtazapine TAB* 15 MG PO SCH (20:03)
[2018-01-05] MEDS ORDERED: risperiDONE TAB* 1 MG PO ONE (21:00)
[2018-01-06] MEDS: Vitamin THERAPEUTIC TAB PO SCH (08:12)
[2018-01-06] MEDS: Cholecalciferol TAB* 1000 UNITS PO SCH (08:12)
[2018-01-06] MEDS ORDERED: Mirtazapine TAB* 15 MG PO ONE (10:00)
--- NOTE | 2018-01-06 11:26 | PN ---
Subjective - Subjective Date of Service: 01/06/18 Service Type: 55360 Hosp care 35 min high complexity Subjective: Aurora refused the mirtazepine at bedtime because she was already asleep. She then agreed to take it during the day and became somewhat sedated. She still agreed to take it at night. We discussed methods to reduce anxiety such as remembering her statements that refute her obsessive thoughts. Objective - Appearance Appearance: Well Developed/Nourished Dysmorphic Features: No Hygiene: Normal Grooming: Fairly Well Kept - Behavior Psychomotor Activities: Normal Exhibits Abnormal Movement: No - Attitude and Relatedness Attitude and Relatedness: Needy Eye Contact: Good - Speech Quality: Unpressured Latencies: Normal Quantity: Appropriate - Mood Patient's Decription of Mood: "Anxious" - Affect Observed Affect: Tense - Thought Process Patient's Thought Process: Coherent Thought Content: Yes Passive Wish, No Suicidal Planning, No Homicidal Ideation, No Paranoid Ideation - Sensorium Experiencing Hallucinations: No, Sensorium is Clear Type of Hallucinations: Visual: No, Auditory: No, Command: No - Level of Consciousness Level of Consciousness: Lethargic Orientation: Yes Intact, Yes Orientated to Time, Yes Orientated to Place, Yes Orientated to Person - Impulse Control Impulse Control: Intact - Insight and Judgement Insight and Judgement: Fair - Group Participation Particating in Group Activities: No - Medication Management Medication Management Adherence: Partial - Additional Observations Comments: Aurora took mirtazepine mid-morning and was sleepy all day. She is still anxious , but she is also growing more irritable, wanting to leave. Assessment - Assessment Merits Inpatient Hospitalization: For Immediate Safety, For Stabilization Clinical Impression: Aurora is sleepy today. She is anxious and less psychotic. Plan - Plan Treatment Plan: Name: ANASTACIA ROY Birthdate: 1985 [id number] Medications: Current Medications Acetaminophen (Tylenol Tab*) 650 mg PO Q4H PRN PRN Reason: PAIN or TEMP > 101 F Last Admin: 01/05/18 12:27 Dose: 650 mg Al Hydrox/Mg Hydrox/Simethicone (Maalox Plus*) 30 ml PO Q4H PRN PRN Reason: INDIGESTION Cholecalciferol (Vitamin D Tab*) 1,000 units PO DAILY ELOY Last Admin: 01/06/18 08:12 Dose: 1,000 units Diazepam (Valium Tab(*)) 2.5 mg PO TID PRN PRN Reason: ANXIETY Last Admin: 01/05/18 03:21 Dose: 2.5 mg Ibuprofen (Motrin Tab*) 400 mg PO Q6H PRN PRN Reason: PAIN Last Admin: 01/04/18 09:01 Dose: 400 mg Mirtazapine (Remeron Tab*) 7.5 mg PO 1900 ELOY Last Admin: 01/05/18 20:03 Dose: Not Given Multivitamins (Theragran Tab*) 1 tab PO DAILY [facility] Last Admin: 01/06/18 08:12 Dose: 1 tab - Discharge Plan Discharge Plan: Outpatient Follow Up Additional Comments: Continue mirtazepine. Start 30 min checks. Start staff pass. Start comfort room. Use new coping strategies. Encourage use of cell phone apps for relaxation at home.
[2018-01-06] MEDS: Mirtazapine TAB* 15 MG PO SCH (20:52)
[2018-01-07] MEDS: Vitamin THERAPEUTIC TAB PO SCH (08:18)
[2018-01-07] MEDS: Cholecalciferol TAB* 1000 UNITS PO SCH (08:18)
[2018-01-07] MEDS: Diazepam TAB(*) 5 MG PO PRN ×2 (11:42→23:18)
[2018-01-07] MEDS: busPIRone TAB* 15 MG PO SCH ×2 (12:10→20:18)
--- NOTE | 2018-01-07 14:45 | PN ---
Subjective - Subjective Date of Service: 01/07/18 Service Type: [id number] Hosp care 35 min high complexity Subjective: Aurora continues to vacillate between wanting to be here and not wanting to be here. She also cannot decide what to do about a family meeting. We have determined, however, that there will be a family meeting at 4 pm on with her mom, Melissa Roy ([phone]). Anastacia today stated she wanted to leave tomorrow, then Friday, then today and stated she feels like no one likes her. We have reinforced that the most important thing for Aurora to focus on is her health. She also learned that her sister was diagnosed with hepatitis C. We have ordered a hepatitis C antibody blood test for Aurora. Objective - Appearance Appearance: Well Developed/Nourished Dysmorphic Features: No Hygiene: Normal Grooming: Fairly Well Kept - Behavior Psychomotor Activities: Normal Exhibits Abnormal Movement: No - Attitude and Relatedness Attitude and Relatedness: Needy Eye Contact: Good - Speech Quality: Unpressured Latencies: Normal Quantity: Appropriate - Mood Patient's Decription of Mood: "Terrible" - Affect Observed Affect: Labile - Thought Process Patient's Thought Process: Coherent Thought Content: Yes Passive Wish - This comes and goes, but is often present., Yes Paranoid Ideation - Today believes no one likes her., No Suicidal Planning, No Homicidal Ideation - Sensorium Experiencing Hallucinations: No, Sensorium is Clear Type of Hallucinations: Visual: No, Auditory: No, Command: No - Level of Consciousness Level of Consciousness: Agitated Orientation: Yes Intact, Yes Orientated to Time, Yes Orientated to Place, Yes Orientated to Person - Impulse Control Impulse Control: Tenuous - Insight and Judgement Insight and Judgement: Fair - Group Participation Particating in Group Activities: No - Medication Management Medication Management Adherence: Partial - Additional Observations Comments: She is still anxious, but she is also growing more irritable, wanting to leave. She declined mirtazepine last night. Today requested Buspar. She is less psychotically related, however. Assessment - Assessment Merits Inpatient Hospitalization: For Immediate Safety, For Stabilization Inpatient DSM-V Dx: F41.9 Clinical Impression: She is anxious and less psychotic. She remains reactive and requires soothing and reinforcement. Plan - Plan Treatment Plan: Name: ANASTACIA ROY Birthdate: 1985 [id number] Continued Medication Management: Different Medication Medications: Current Medications Acetaminophen (Tylenol Tab*) 650 mg PO Q4H PRN PRN Reason: PAIN or TEMP > 101 F Last Admin: 01/05/18 12:27 Dose: 650 mg Al Hydrox/Mg Hydrox/Simethicone (Maalox Plus*) 30 ml PO Q4H PRN PRN Reason: INDIGESTION Buspirone HCl (Buspar Tab *) 15 mg PO BID [facility] Last Admin: 01/07/18 12:10 Dose: 15 mg Cholecalciferol (Vitamin D Tab*) 1,000 units PO DAILY [facility] Last Admin: 01/07/18 08:18 Dose: 1,000 units Diazepam (Valium Tab(*)) 2.5 mg PO TID PRN PRN Reason: ANXIETY Last Admin: 01/07/18 11:42 Dose: 2.5 mg Ibuprofen (Motrin Tab*) 400 mg PO Q6H PRN PRN Reason: PAIN Last Admin: 01/04/18 09:01 Dose: 400 mg Mirtazapine (Remeron Tab*) 7.5 mg PO 1900 [facility] Last Admin: 01/06/18 20:52 Dose: Not Given Multivitamins (Theragran Tab*) 1 tab PO DAILY [facility] Last Admin: 01/07/18 08:18 Dose: 1 tab - Discharge Plan Discharge Plan: Outpatient Follow Up Additional Comments: Continue 30 min checks, encourage staff pass, comfort room. Use new coping strategies. Encourage use of cell phone apps for relaxation at home. Continue to encourage progress in self-reliant coping strategies. Start Buspar today.
[2018-01-07] MEDS: Acetaminophen TAB* 325 MG PO PRN ×2 (16:40→20:18)
[2018-01-07] MEDS: Mirtazapine TAB* 15 MG PO SCH (19:29)
[2018-01-08] MEDS: Diazepam TAB(*) 5 MG PO PRN ×2 (03:46→11:01)
[2018-01-08] MEDS: Vitamin THERAPEUTIC TAB PO SCH (08:10)
[2018-01-08] MEDS: busPIRone TAB* 15 MG PO SCH (08:10)
[2018-01-08] MEDS: Cholecalciferol TAB* 1000 UNITS PO SCH (08:10)
[2018-01-08 08:38] VITALS: BP 98/62
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
== END 2018-01-08 13:50 | disposition home or self-care (01) | DRG 756 ==
LOC: ED 12:15 → BSU 17:31
PROVIDERS: ADMIT Psychiatry & Neurology Psychiatry; ATTEND Psychiatry & Neurology Psychiatry
DX: F41.1 Generalized anxiety disorder (principal); F23 Brief psychotic disorder; R45.851 Suicidal ideations; J45.909 Unspecified asthma, uncomplicated; F50.9 Eating disorder, unspecified; F41.0 Panic disorder [episodic paroxysmal anxiety]; Z86.14 Personal history of Methicillin resistant Staphylococcus aureus infection; Z82.49 Family history of ischemic heart disease and other diseases of the circulatory system; Z73.3 Stress, not elsewhere classified
CPT/HCPCS: 36415; 80053; 80061; 80307; 80320; 80329; 81003; 81015; 83036; 84443; 84702; 85025; 86803; 87086; 99222; 99232; 99233; 99238; 99282; A9270-GY; G0480

== ENCOUNTER 2018-01-22 12:56 | Inpatient (IN) | payer OTHER ==
[2018-01-22 13:36] LABS: ABS Basophils 0.1 10^3/ul (0-0.2); ABS Eosinophils 0.1 10^3/ul (0-0.6); ABS Lymphocytes 0.9 10^3/ul (1.0-4.8); ABS Monocytes 0.3 10^3/ul (0-0.8); ABS Neutrophils 4.6 10^3/ul (1.5-7.7); ABS Nucleated RBC 0 10^3/ul; Eosinophil % 1.8 % (0-6); Hematocrit 39 % (35-47); Hemoglobin 13.3 g/dl (12.0-16.0); Lymphocyte % 14.7 % (25-47); Mean Corpuscular HGB Conc 34 g/dl (31-36); Mean Corpuscular Hemoglobin 29 pg (27-31); Mean Corpuscular Volume 84 fL (80-97); Mean Platelet Volume 7.2 um3 (7.4-10.4); Nucleated Red Blood Cells % 0.1; Platelet Count 202 10^3/ul (150-450); Red Blood Count 4.57 10^6/ul (4.00-5.40); Red Cell Distribution Width 15 % (10.5-15)
[2018-01-22 13:41] LABS: Urine Appearance Cloudy; Urine Blood 1+ (Negative); Urine Color Yellow; Urine Ketones Negative (Negative); Urine Protein Negative (Negative); Urine Red Blood Cell Absent (Absent); Urine Specific Gravity 1.026 (1.010-1.030); Urine Urobilinogen Negative (Negative); Urine White Blood Cell 1+(6-10/hpf) (Absent)
[2018-01-22 13:58] LABS: EGFR Non-African American 103.8 (>60)
--- OUTSIDE RECORDS SUMMARY | 2018-01-22 14:31 | XMS REPORT | Continuity of Care Document ---
:1985 Author Organization [facility] Support Name Relationship Address Phone SHANNAN ROY mother [address] [place] [address] SHANNAN ROY mother [address] [place] [address] Allergies and Intolerances Code Code System Allergy Type Reaction Severity Start End Date Status Substance Date 21580731 RXNorm Celexa Drug Hives Moderate Active allergy (disorder) Medications RxNorm Medication Dose Route Instructions Start End Status Date Date 773398 12 HR Bupropion 100 MG ORAL ONCE A DAY Active Hydrochloride 100 MG Extended Release Oral Tablet 19750221 Diazepam 5 MG 5 mg oral orally 2 times Active Oral Tablet per day as needed. 71406 Risperidone 0.5 mg oral orally every Active day 413919 Risperidone 1 MG 1 MG ORAL AT BEDTIME Active Oral Tablet Ventolin HFA 2 inh Inhalation inhaled 4 times Active Inhaler 90 per day as mcg/actuation needed. Buspirone Oral 15 milligram oral orally 2 times Completed mg per day 14103 Risperidone 1 milligram oral orally 2 times Completed mg per day as needed. (1 tablet every day then can take 1 as needed (at least 8 hours after first dose)) Problems Code Code System Problem Name Start Date End Date Status 32027670 SNOMED-CT Anxiety U Active Procedures No data in the system Results Laboratory Results Order: TEST - SERUM Specimen Source: Body Site: Legend: (G,H)=High, (GG,HH,CH,#H)=Above High Threshold, (#,L) =Low, (##,CL,#L,LL)=Below Low Threshold, (C,CC,CA,#A,A)=Abnormal LOINC Test Result Flag Range Units Date 2118-01 1HCG Preg SerPl Ql NEGATIVE 01/13/2018 12:20 1Detection Level: >=10 mIU/mL Performing Lab Footnotes:[facility] - [id number] [place] [address] MACHO GONZALEZ Order: ACETAMINOPHEN Specimen Source: Body Site: Legend: (G,H)=High, ( GG,HH,CH,#H)=Above High Threshold, (#,L)=Low, (##,CL,#L,LL)=Below Low Threshold , (C,CC,CA,#A,A)=Abnormal LOINC Test Result Flag Range Units Date 62777-6 1APAP Bld-mCnc <1 L 10-30 ug/mL 01/13/2018 12:00 Performing Lab Footnotes:[facility] - [id number] [place] [address] MACHO GONZALEZ Order: ALCOHOL BLOOD MEDICAL Specimen Source: Body Site: Legend: (G,H) =High, (GG,HH,CH,#H)=Above High Threshold, (#,L)=Low, (##,CL,#L,LL)=Below Low Threshold, (C,CC,CA,#A,A)=Abnormal LOINC Test Result Flag Range Units Date 5640-8 1Ethanol Bld-mCnc <0.010 gm% 01/13/2018 12:00 Performing Lab Footnotes:[facility] - [id number] [place] [address] MACHO GONZALEZ Order: CBC DIFF Specimen Source: Body Site: Legend: (G,H)=High, (GG,HH, CH,#H)=Above High Threshold, (#,L)=Low, (##,CL,#L,LL)=Below Low Threshold, (C,CC ,CA,#A,A)=Abnormal LOINC Test Result Flag Range Units Date 6690-2 1WBC # Bld Auto 7.2 4.8-10.8 K/uL 01/13/2018 12:00 83975-2 1RBC # Bld 4.46 4.20-5.40 M/uL 01/13/2018 12:00 718-7 1Hgb Bld-mCnc 13.2 12.0-16.0 gm/dL 01/13/2018 12:00 4544-3 1Hct VFr Bld Auto 38.1 36.0-48.0 % 01/13/2018 12:00 787-2 1MCV RBC Auto 85.4 80.0-100.0 fL 01/13/2018 12:00 80230-7 1MCHC RBC-mCnc 34.7 30.0-36.5 % 01/13/2018 12:00 45788-1 1MCH RBC Qn 29.7 27.0-34.0 pg 01/13/2018 12:00 19424-2 1RDW RBC 12.8 11.0-15.0 % 01/13/2018 12:00 777-3 1Platelet # Bld Auto 207 130-450 K/uL 01/13/2018 12:00 57810-7 1PMV Bld Auto 6.6 6.0-12.0 fL 01/13/2018 12:00 751-8 1Neutrophils # Bld Auto 75 37-80 % 01/13/2018 12:00 19183-6 1Lymphocytes NFr Bld 19 10-50 % 01/13/2018 12:00 5905-5 1Monocytes NFr Bld Auto 6 0-12 % 01/13/2018 12:00 09319-8 1Eosinophil # Bld 1 <=8 % 01/13/2018 12:00 704-7 1Basophils # Bld Auto 0 <=3 % 01/13/2018 12:00 91079-4 1Neutrophils # Bld 5.3 1.8-8.6 K/uL 01/13/2018 12:00 731-0 1Lymphocytes # Bld Auto 1.3 0.5-5.0 K/uL 01/13/2018 12:00 742-7 1Monocytes # Bld Auto 0.4 0.0-1.3 K/uL 01/13/2018 12:00 77603-0 1Eosinophil # Bld 0.1 0.0-0.9 K/uL 01/13/2018 12:00 704-7 1Basophils # Bld Auto 0.0 0.0-0.3 K/ul 01/13/2018 12:00 Performing Lab Footnotes:[facility] - [id number] - [address] [place] [address] MACHO Silva LISA Order: COMPREHENSIVE PANEL Specimen Source: Body Site: Legend: (G,H)= High, (GG,HH,CH,#H)=Above High Threshold, (#,L)=Low, (##,CL,#L,LL)=Below Low Threshold, (C,CC,CA,#A,A)=Abnormal LOINC Test Result Flag Range Units Date 2950-2 1Sodium SerPl-sCnc 140 136-145 mmol/L 01/13/2018 12:00 2823-3 1Potassium SerPl-sCnc 3.5 3.5-5.2 mmol/L 01/13/2018 12:00 2075-0 1Chloride SerPl-sCnc 105 100-108 mmol/L 01/13/2018 12:00 8-9 1CO2 SerPl-sCnc 29 21-32 mmol/L 01/13/2018 12:00 2345-7 1Glucose SerPl-mCnc 88 70-100 mg/dL 01/13/2018 12:00 3094-0 1BUN SerPl-mCnc 8 7-21 mg/dL 01/13/2018 12:00 2160-0 1Creat SerPl-mCnc 0.6 0.6-1.3 mg/dL 01/13/2018 12:00 Interpretive Tiffany: 1Normal Kidney Function or Mild Disease - GFR >OR=60 Chronic Kidney Disease - GFR 15-59 Renal Failure - GFR < 15 GFR not calculated on patients under 18 years of age. Calculated (estimated) GFR is based on the MDRD Study equation, which assumes a steady state for creatinine. Estimated GFR may not be appropriate for medication dosing. 18768-9 1Ca-I SerPl-mCnc 9.3 8.5-10.8 mg/dL 01/13/2018 12:00 49467-3 1GFR/BSA.pred SerPl-ArVRat >60 01/13/2018 12:00 77404-9 1Bilirub Bld-mCnc 1.2 0.0-1.2 mg/dL 01/13/2018 12:00 2885-2 1Prot SerPl-mCnc 7.2 6.4-8.2 gm/dL 01/13/2018 12:00 1751-7 1Albumin SerPl-mCnc 4.5 3.4-4.8 gm/dL 01/13/2018 12:00 6768-6 1ALP SerPl-cCnc 75 40-150 U/L 01/13/2018 12:00 1742-6 1ALT SerPl-cCnc 51 0-55 U/L 01/13/2018 12:00 1920-8 1AST SerPl-cCnc 37 5-37 U/L 01/13/2018 12:00 Performing Lab Footnotes:[facility] - [id number] - [address] [place] [address] MACHO GONZALEZ Order: SALICYLATES Specimen Source: Body Site: Legend: (G,H)=High, (GG, HH,CH,#H)=Above High Threshold, (#,L)=Low, (##,CL,#L,LL)=Below Low Threshold, (C ,CC,CA,#A,A)=Abnormal LOINC Test Result Flag Range Units Date 4024-6 1Salicylates SerPl-mCnc <1.0 L 2.8-29.0 mg/dL 01/13/2018 12:00 Performing Lab Footnotes:[facility] - [id number] [place] [address] MACHO ARGUELLOOMD1 Order: T4 - FREE Specimen Source: Body Site: Legend: (G,H)=High, (GG,HH ,CH,#H)=Above High Threshold, (#,L)=Low, (##,CL,#L,LL)=Below Low Threshold, (C, CC,CA,#A,A)=Abnormal LOINC Test Result Flag Range Units Date 3024-7 1T4 Free SerPl-mCnc 0.79 0.77-1.60 ng/dL 01/13/2018 12:00 Performing Lab Footnotes:[facility] - [id number] [place] [address] MACHO ARGUELLOOMD1 Order: TCA -TRICYCLIC ANTIDEPRESSANT UR Specimen Source: Body Site: Legend: (G,H)=High, (GG,HH,CH,#H)=Above High Threshold, (#,L)=Low, (##,CL,#L,LL) =Below Low Threshold, (C,CC,CA,#A,A)=Abnormal LOINC Test Result Flag Range Units Date 55354-6 1Tricyclics Ur Scn-mCnc NEGATIVE NEGATIVE 01/13/2018 12:00 1A Positive Drug Screen will not be Confirmed unless requested by the Physician. Please contact the Lab ([phone]) within 5 days for Confirmation Testing. Performing Lab Footnotes:[facility] - [id number] - [address] [place] [address] MACHO Silva SAUNDRAOMAna Maria Order: TSH Specimen Source: Body Site: Legend: (G,H)=High, (GG,HH,CH,#H )=Above High Threshold, (#,L)=Low, (##,CL,#L,LL)=Below Low Threshold, (C,CC,CA,# A,A)=Abnormal LOINC Test Result Flag Range Units Date 3016-3 1TSH SerPl-aCnc 2.78 0.34-4.82 uIU/mL 01/13/2018 12:00 Performing Lab Footnotes:[facility] - [id number] - [address] [place] [address] MACHO Silva SAUNDRAOMAna Maria Order: URINALYSIS ROUTINE Specimen Source: Body Site: Legend: (G,H)= High, (GG,HH,CH,#H)=Above High Threshold, (#,L)=Low, (##,CL,#L,LL)=Below Low Threshold, (C,CC,CA,#A,A)=Abnormal LOINC Test Result Flag Range Units Date 5778-6 1Color Ur YELLOW 01/13/2018 12:00 85014-3 1Turbidity Ur Ql CLEAR CLEAR 01/13/2018 12:00 11-5 1Sp Gr Ur Strip 1.015 1.000-1.030 01/13/2018 12:00 3-2 1pH Ur Strip 8.0 5.0-8.0 01/13/2018 12:00 16436-4 1WBC # Ur Strip 1+ ! NEGATIVE 01/13/2018 12:00 2-4 1Nitrite Ur Ql Strip NEGATIVE NEGATIVE 01/13/2018 12:00 4-0 1Prot Ur Strip-mCnc TRACE ! NEGATIVE mg/dL 01/13/2018 12:00 92-7 1Glucose Ur Strip-mCnc NORMAL NORMAL mg/dL 01/13/2018 12:00 97-6 1Ketones Ur Strip-mCnc NEGATIVE NEGATIVE mg/dL 01/13/2018 12:00 99260-3 1Urobilinogen Ur 1 ! NORMAL mg/dL 01/13/2018 12:00 Strip-mCnc 05887-4 1Bilirub Ur Strip-mCnc NEGATIVE NEGATIVE mg/dL 01/13/2018 12:00 94-3 1Hgb Ur Ql Strip NEGATIVE NEGATIVE 01/13/2018 12:00 Performing Lab Footnotes:[facility] - [id number] - [address] [place] [address] MACHO GONZALEZ Order: URINE MICROSCOPIC Specimen Source: Body Site: Legend: (G,H)=High , (GG,HH,CH,#H)=Above High Threshold, (#,L)=Low, (##,CL,#L,LL)=Below Low Threshold, (C,CC,CA,#A,A)=Abnormal LOINC Test Result Flag Range Units Date 1URINE MICROSCOPIC EXAM 5821-4 1WBC #/area UrnS HPF 5-10 ! 0-2 /HPF 01/13/2018 12:00 5808-1 1RBC # UrnS HPF 0-2 ! NONE SEEN /HPF 01/13/2018 12:00 Interpretive Tiffany: 1The [employer] has defined Microscopic Hematuria as 3 or more RBC per high powered field from a single positive urinalysis with microscopy. 71266-2 1Bacteria UrnS Ql Micro MODERATE ! NONE SEEN /HPF 01/13/2018 12: 00 5787-7 1Epi Cells #/area UrnS HPF MANY ! NONE SEEN /HPF 01/13/2018 12:00 Performing Lab Footnotes:[facility] - [id number] - [address] [place] [address] MACHO SANDERSD1 Order: UTOX URINE DRUG SCREEN Specimen Source: Body Site: Legend: (G,H )=High, (GG,HH,CH,#H)=Above High Threshold, (#,L)=Low, (##,CL,#L,LL)=Below Low Threshold, (C,CC,CA,#A,A)=Abnormal LOINC Test Result Flag Range Units Date 41555-9 1Amphet Ur Ql Scn NEGATIVE NEGATIVE 01/13/2018 12:00 3374-6 1Barbiturate Scn Present Ur NEGATIVE NEGATIVE 01/13/2018 12:00 84448-9 1Benzodiaz metab Ur Ql Scn POSITIVE ! NEGATIVE 01/13/2018 12:00 3879-4 1Opiates Ur Ql NEGATIVE NEGATIVE 01/13/2018 12:00 3397-7 1Cocaine Ur Ql NEGATIVE NEGATIVE 01/13/2018 12:00 63124-5 111OH-THC Ur Ql Scn NEGATIVE NEGATIVE 01/13/2018 12:00 87052-2 1PCP Ur Scn-mCnc NEGATIVE NEGATIVE 01/13/2018 12:00 87653-7 1Methadone Ur Ql Scn NEGATIVE NEGATIVE 01/13/2018 12:00 1A Positive Drug Screen will not be Confirmed unless requested by the Physician. Please contact the Lab ([phone]) within 5 days for Confirmation Testing. Performing Lab Footnotes:[facility] - [id number] - [address] [place] [address] MACHO Silva DAWNCIOMD1 Microbiology Results w Susceptibilities Order: CULTURE URINE Specimen Source: Urine Body Site: UrineCultural Observations:Mixed growth consistent with vaginal jean present including Rare Jgtdtblfynqmk7imeeoznksl (Group B)1.1Performing Lab Footnotes:[facility] - [id number] - [address] [place] [address] MACHO Silva [id number] Social History Code Code System Social History Description Dates Observed Observation 429711843 SNOMED CT Current Smoking Unknown if ever Status smoked UNK AdministrativeGender Sex Assigned At Unknown Vital Signs Code Code System Vitals Value Date 8865-8 LOINC Pulse Rate 81 {beats}/min 01/20/2018 9279-1 LOINC Respiratory Rate 20 /min 01/20/2018 56190-8 LOINC O2% BldC Oximetry 97 % 01/20/2018 8480-6 LOINC BP Systolic 93 mm[Hg] 01/20/2018 8462-4 LOINC BP Diastolic 63 mm[Hg] 01/20/2018 8310-5 LOINC Body Temperature 97.1 [degF] 01/20/2018 48850-6 LOINC Weight 89 kg 01/14/2018 8302-2 LOINC Height 68 [in_i] 01/13/2018 Goals Section No data in the system Health Concerns No data in the systemEncounter Diagnosis Date Code Code System Diagnosis Status 70910623 SNOMED-CT BIPOLAR DISORDER UNSPECIFIED Active Advance Directives *RHIO - CONSENT IS YES Directive Type Effective Date Radiology Aide Notes Supporting Document Name Address Phone No Directive Type 09/27/2016 6:12:49 Not Specified Not Specified Not Specified None No specified AM PT STATES NO ADVANCE DIRECTIVES Directive Type Effective Date Radiology Aide Notes Supporting Document Name Address Phone No Directive Type 01/13/2018 3:45:00 Not Specified Not Specified Not Specified None No specified PM Family History Relationship: Father Health Problem Age At Onset Notes HTN (Hypertensive disorder) Functional Status Code Functional Condition Code System Date Status Independent adls SNOMED CT 01/13/2018 Active Appears well nourished/hydrated SNOMED CT 01/13/[address] Active [address] care SNOMED CT 01/20/[address] 01/20/[address]ize understanding SNOMED CT 01/18/[address] 01/20/2018 Active Needs further teaching SNOMED CT 01/20/2018 Active 4 - manage pain and encourage activity as SNOMED CT 01/20/2018 Active tolerated Immunizations No data in the system Medical Equipment No data in the system Mental Status Code Cognitive Condition Code System Date Status Perrl SNOMED CT 01/13/2018 Active Oriented x [address] 01/13/2018 Active Moves all extremities SNOMED CT 01/13/2018 Active Nml gait SNOMED CT 01/13/2018 Active Speech normal SNOMED CT 01/13/2018 Active Affect appropriate SNOMED CT 01/13/2018 Active Maintains eye contact SNOMED CT 01/13/[address] 01/13/[address] 01/13/[address] 01/13/2018 Active Mild distress SNOMED CT 01/13/2018 Active Neat, clean SNOMED CT 01/13/[address] 01/13/[address] 01/13/2018 Active No disturbance noted SNOMED CT 01/13/[address] Active Denies problems SNOMED CT 01/13/[address] 01/17/[address] 01/18/[address] 01/18/[address] 01/18/2018 Active Poverty of speech SNOMED CT 01/16/[address] 01/20/[address] 01/20/2018 Active 515372223 Orientated SNOMED CT 01/19/2018 Active 586568083 Oriented to time SNOMED CT 01/19/2018 Active 104401012 Oriented to time (finding) SNOMED CT 01/19/2018 Active [address] Orient[address] SNOMED CT 01/19/2018 Active [address]15 Oriented to place (finding) SNOMED CT 01/19/2018 Active 456378554 Oriented to person SNOMED CT 01/19/2018 Active Assessment and Plan Assessments No data in the systemPlan Of Treatment No data in the systemPending Tests No data in the system Hospital [facility] [place] ([phone])Mental Health Follow Up Appointment Date and Time: 01/21/18 @ 2:00 pmOther Information:In case of emergency or if you are experiencing an increase in your symptoms, call 911, contact the Hotline at 1- [phone] in [facility] or [phone] in [facility].Referrals Made For Post Discharge [facility] [place] [phone] FAST Program- [place] [phone] *CM and parent peer will contact the patient in the community for an appointment*OtherMy Personal Safety Plan1. These are my warning signs that a crisis may be developing:No dataNo data(thoughts, images, mood, situation, behavior)"panic", "flipping out"2. I can do the following activities to take my mind off of my problemsNo dataNo dataor that can calm and comfort Bhavna dataNo data(relaxation techniques, physical activity, coping strategies):color, music3. Ways I can make my environment safe:remove knives; pt reports her boyfriend has done this4. Remind myself of my reasons for livingchildre, family, Steven5. Call a friend or family member:No dataNo dataName:Savana/ 5. Call a provider:No dataNo dataTherapist:[facility]Phone Number:[phone]:Dr. William7. Call Crisis line: [phone] ([phone]) or [phone] ([phone])No dataNo data8. Go somewhere safe:sister, September"s home9. Go to the nearest emergency room at the nearest hospital.No dataNo data10. When I feel that I cannot get to the hospital safely,call 911 and request transportation to the hospital.call 911 and request transportation to the hospital. Reason for Visit Reason for Visit depression
--- NOTE | 2018-01-22 15:14 | ED ---
Psychiatric Complaint - HPI Summary HPI Summary: This is edmundo Elise documenting for attending Paulo Valle MD. This patient is a 32 year old F presenting to [facility] with a chief complaint of SI since 2 days ago when she was D/C from [facility]. She has a plan to slit her throat with a knife. She has not tried to hurt herself before. She is currently on medications for psychosis. Her periods are irregular. She has not injured herself. - History Of Current Complaint Chief Complaint: EDMentalHealth Time Seen by Provider: 01/22/18 13:23 Hx Obtained From: Patient Hx Last Menstrual Period: 1 week ago Onset/Duration: Lasting Days - 2 days, Still Present Timing: Constant Related History: Positive For: Prior Psychiatric Issues - Psychosis, anxiety, depression Has Suicidal: Reports: Thoughts, With A Plan - Allergies/Home Medications Allergies/Adverse Reactions: Allergies Allergy/AdvReac Type Severity Reaction Status Date / Time citalopram [From Celexa] Allergy Hives Verified 01/22/18 13:25 clonazepam [From Klonopin] AdvReac Insomnia Verified 01/22/18 13:25 sertraline AdvReac Insomnia Verified 01/22/18 13:25 Home Medications: Home Medications buPROPion HCl [Bupropion HCl ER] 100 mg PO DAILY 01/22/18 [History Confirmed 08/10] risperiDONE TAB* [RisperDAL*] 0.5 mg PO DAILY 01/22/18 [History Confirmed ] PMH/Surg Hx/FS Hx/Imm Hx Endocrine/Hematology History: Denies: Hx Anticoagulant Therapy, Hx Diabetes, Hx Thyroid Disease Cardiovascular History: Denies: Hx Hypertension Respiratory History: Reports: Hx Asthma - prescribed albuterol inhaler in personal belongings Denies: Hx Chronic Obstructive Pulmonary Disease (COPD) GI History: Denies: Hx Ulcer Sensory History: Denies: Hx Contacts or Glasses, Hx Hearing Aid Opthamlomology History: Denies: Hx Contacts or Glasses Psychiatric History: Reports: Hx Anxiety, Hx Eating Disorder - when depressed - not eat or drink, Hx Depression, Hx Panic Disorder, Hx Inpatient Treatment - pt relates "a long time ago" at [facility], Hx of Violent Episodes Against Others Denies: Hx Bipolar Disorder - Surgical History Surgery Procedure, Year, and Place: pt denies hx Infectious Disease History: Yes Infectious Disease History: Reports: Hx of Known/Suspected MRSA - in urine Denies: Hx Clostridium Difficile, Hx Hepatitis, Hx Human Immunodeficiency Virus (HIV), Hx Shingles, Hx Tuberculosis, Hx Known/Suspected VRE, Hx Known/ Suspected VRSA, History Other Infectious Disease, Traveled Outside the [place] in Last 30 Days - Family History Known Family History: Positive: Hypertension Negative: Cardiac Disease - Social History Occupation: Unemployed Alcohol Use: None Alcohol Amount: pt denies alcohol use Hx Substance Use: No Substance Use Type: Reports: None Substance Use Comment - Amount & Last Used: pt denies drug use Hx Tobacco Use: No Smoking Status (MU): Never Smoked Tobacco Amount Used/How Often: Pt denies tobacco use Length of Time of Smoking/Using Tobacco: pt denies tobacco use Have You Smoked in the Last Year: No Review of Systems Negative: Fever, Chills Negative: Erythema Negative: Sore Throat Negative: Chest Pain Negative: Shortness Of Breath, Cough Negative: Abdominal Pain, Vomiting, Nausea Negative: dysuria, hematuria Negative: Myalgia, Edema Negative: Rash Neurological: Other - Denies dizziness Positive: Other - SI with a plan All Other Systems Reviewed And Are Negative: Yes Physical Exam - Summary Physical Exam Summary: Constitutional: Well-developed, Well-nourished, Alert. (-) Distressed Skin: Warm, Dry HENT: Normocephalic; Atraumatic Eyes: Conjunctiva normal. Tearful. Neck: Musculoskeletal ROM normal neck. (-) JVD, (-) Stridor, (-) Tracheal deviation Cardio: Rhythm regular, rate normal, Heart sounds normal; Intact distal pulses; The pedal pulses are 2+ and symmetric. Radial pulses are 2+ and symmetric. (-) Murmur Pulmonary/Chest wall: Effort normal. (-) Respiratory distress, (-) Wheezes, (-) Rales Abd: Soft, (-), epigastric tenderness, (-) Distension, (-) Guarding, (-) Rebound Musculoskeletal: (-) Edema Lymph: (-) Cervical adenopathy Neuro: Alert, Oriented x3 Psych: Mood normal. Affect is flat Triage Information Reviewed: Yes Vital Signs On Initial Exam: Initial Vitals Temp Pulse Resp BP Pulse Ox 98.3 F 67 18 122/87 99 01/22/18 13:17 08/02/18 13:17 01/22/18 13:17 01/22/18 13:17 01/22/18 13:17 Vital Signs Reviewed: Yes Diagnostics - Vital Signs Vital Signs Temp Pulse Resp BP Pulse Ox 01/22/18 13:17 98.3 F 67 18 122/87 99 - Laboratory Lab Results: Lab Results 01/22/18 01/22/18 01/22/18 Range/Units 13:27 13:28 13:28 WBC 6.0 (3.5-10.8) 10^3/ul RBC 4.57 (4.00-5.40) 10^6/ul Hgb 13.3 (12.0-16.0) g/dl Hct 39 (35-47) % MCV 84 (80-97) fL MCH 29 (27-31) pg MCHC 34 (31-36) g/dl RDW 15 (10.5-15) % Plt Count 202 (150-450) 10^3/ul MPV 7.2 L (7.4-10.4) um3 Neut % (Auto) 76.6 (38-83) % Lymph % (Auto) 14.7 L (25-47) % Davis % (Auto) 5.1 (0-7) % Eos % (Auto) 1.8 (0-6) % Baso % (Auto) 1.8 (0-2) % Absolute Neuts (auto) 4.6 (1.5-7.7) 10^3/ul Absolute Lymphs (auto) 0.9 L (1.0-4.8) 10^3/ul Absolute Monos (auto) 0.3 (0-0.8) 10^3/ul Absolute Eos (auto) 0.1 (0-0.6) 10^3/ul Absolute Basos (auto) 0.1 (0-0.2) 10^3/ul Absolute Nucleated RBC 0 10^3/ul Nucleated RBC % 0.1 Sodium (135-145) mmol/L Potassium (3.5-5.0) mmol/L Chloride (101-111) mmol/L Carbon Dioxide (22-32) mmol/L Anion Gap (2-11) mmol/L BUN (6-24) mg/dL Creatinine (0.51-0.95) mg/dL Est GFR ( Amer) (>60) Est GFR (Non-Af Amer) (>60) BUN/Creatinine Ratio (8-20) Glucose (70-100) mg/dL Calcium (8.6-10.3) mg/dL Total Bilirubin (0.2-1.0) mg/dL AST (13-39) U/L ALT (7-52) U/L Alkaline Phosphatase (34-104) U/L Total Protein (6.4-8.9) g/dL Albumin (3.2-5.2) g/dL Globulin (2-4) g/dL Albumin/Globulin Ratio (1-3) TSH (0.34-5.60) mcIU/mL Urine Color Yellow Urine Appearance Cloudy Urine pH 5.0 (5-9) Ur Specific [place] 1.026 (1.010-1.030) Urine Protein Negative (Negative) Urine Ketones Negative (Negative) Urine Blood 1+ A (Negative) Urine Nitrate Negative (Negative) Urine Bilirubin Negative (Negative) Urine Urobilinogen Negative (Negative) Ur Leukocyte Esterase 1+ A (Negative) Urine WBC (Auto) 1+(6-10/hpf) A (Absent) Urine RBC (Auto) Absent (Absent) Ur Squamous Epith Cells Present A (Absent) Urine Bacteria Absent (Absent) Urine Glucose Negative (Negative) Salicylates (<30) mg/dL Urine Opiates Screen None detected (None Detect) Acetaminophen mcg/mL Ur Barbiturates Screen None detected (None Detect) Ur Phencyclidine Scrn None detected (None Detect) Ur Amphetamines Screen None detected (None Detect) U Benzodiazepines Scrn Presumptive positive A (None Detect) Urine Cocaine Screen None detected (None Detect) U Cannabinoids Screen None detected (None Detect) Serum Alcohol (<10) mg/dL 01/22/18 Range/Units 13:28 WBC (3.5-10.8) 10^3/ul RBC (4.00-5.40) 10^6/ul Hgb (12.0-16.0) g/dl Hct (35-47) % MCV (80-97) fL MCH (27-31) pg MCHC (31-36) g/dl RDW (10.5-15) % Plt Count (150-450) 10^3/ul MPV (7.4-10.4) um3 Neut % (Auto) (38-83) % Lymph % (Auto) (25-47) % Davis % (Auto) (0-7) % Eos % (Auto) (0-6) % Baso % (Auto) (0-2) % Absolute Neuts (auto) (1.5-7.7) 10^3/ul Absolute Lymphs (auto) (1.0-4.8) 10^3/ul Absolute Monos (auto) (0-0.8) 10^3/ul Absolute Eos (auto) (0-0.6) 10^3/ul Absolute Basos (auto) (0-0.2) 10^3/ul Absolute Nucleated RBC 10^3/ul Nucleated RBC % Sodium 139 (135-145) mmol/L Potassium 3.4 L (3.5-5.0) mmol/L Chloride 105 (101-111) mmol/L Carbon Dioxide 27 (22-32) mmol/L Anion Gap 7 (2-11) mmol/L BUN 10 (6-24) mg/dL Creatinine 0.66 (0.51-0.95) mg/dL Est GFR ( Amer) 125.6 (>60) Est GFR (Non-Af Amer) 103.8 (>60) BUN/Creatinine Ratio 15.2 (8-20) Glucose 159 H (70-100) mg/dL Calcium 9.4 (8.6-10.3) mg/dL Total Bilirubin 0.80 (0.2-1.0) mg/dL AST 19 (13-39) U/L ALT 19 (7-52) U/L Alkaline Phosphatase 78 (34-104) U/L Total Protein 7.3 (6.4-8.9) g/dL Albumin 4.6 (3.2-5.2) g/dL Globulin 2.7 (2-4) g/dL Albumin/Globulin Ratio 1.7 (1-3) TSH 1.31 (0.34-5.60) mcIU/mL Urine Color Urine Appearance Urine pH (5-9) Ur Specific [place] (1.010-1.030) Urine Protein (Negative) Urine Ketones (Negative) Urine Blood (Negative) Urine Nitrate (Negative) Urine Bilirubin (Negative) Urine Urobilinogen (Negative) Ur Leukocyte Esterase (Negative) Urine WBC (Auto) (Absent) Urine RBC (Auto) (Absent) Ur Squamous Epith Cells (Absent) Urine Bacteria (Absent) Urine Glucose (Negative) Salicylates < 2.50 (<30) mg/dL Urine Opiates Screen (None Detect) Acetaminophen < 15 mcg/mL Ur Barbiturates Screen (None Detect) Ur Phencyclidine Scrn (None Detect) Ur Amphetamines Screen (None Detect) U Benzodiazepines Scrn (None Detect) Urine Cocaine Screen (None Detect) U Cannabinoids Screen (None Detect) Serum Alcohol < 10 (<10) mg/dL Result Diagrams: 01/22/18 13:28 01/22/18 13:28 Lab Statement: Any lab studies that have been ordered have been reviewed, and results considered in the medical decision making process. Course/Dx - Course Course Of Treatment: 15:06 Patient is medically cleared for MHE. 19:20 Patient volunteerily admitted to Behavioral Health Unit Discharge - Sign-Out/Discharge Documenting (check all that apply): Patient Departure - Admit to U - Discharge Plan Condition: Stable Disposition: PSYCHIATRIC FACILITY-[facility] [place] Referrals: No Primary Care Phys,NOPCP [Primary Care Provider] -
[2018-01-22] MEDS ORDERED: Diazepam TAB(*) 5 MG PO SCH (23:00)
[2018-01-22] MEDS: risperiDONE TAB* 2 MG PO SCH (23:05)
[2018-01-22] MEDS: busPIRone TAB* 15 MG PO SCH (23:05)
[2018-01-22] MEDS ORDERED: Al Hydrox/Mg Hydrox/Simet LIQ* 30 ML UDC PO PRN (23:28)
[2018-01-22] MEDS ORDERED: Acetaminophen TAB* 325 MG PO PRN (23:28)
[2018-01-23] MEDS: busPIRone TAB* 15 MG PO SCH ×2 (08:56→22:20)
[2018-01-23] MEDS: Diazepam TAB(*) 5 MG PO PRN (08:57)
[2018-01-23] MEDS: risperiDONE TAB* 1 MG PO SCH (08:57)
[2018-01-23] MEDS: Vitamin THERAPEUTIC TAB PO SCH (08:57)
[2018-01-23] MEDS ORDERED: buPROPion TAB* 100 MG PO SCH (09:00)
[2018-01-23] MEDS ORDERED: FLUVOXAMINE 100 MG PO SCH ×2 (13:15→21:00)
[2018-01-23] MEDS: CMCS ClomiPRAMINE (NF) 25 MG CAP PO SCH (14:35)
--- NOTE | 2018-01-23 20:23 | HP ---
DICTATION ENDS ABRUPTLY HISTORY AND PHYSICAL: DATE OF ADMISSION: 01/22/18 PROVIDER: Idalmis Alfonso NP, in Psychiatry. SUPERVISING PHYSICIAN: Parish Hoskins MD * (DICTATED BY IDALMIS ALFONSO NP ) JUSTIFICATION FOR ADMISSION: The patient is in need of 24-hour supervision and care secondary to suicidal ideation with a plan to cut herself. CHIEF COMPLAINT: "I'm going to cut my own throat if I don't stop feeling like this." HISTORY OF PRESENT ILLNESS: The patient is a 32-year-old newly single female with a history of anxiety and PTSD, who arrives, brought in by her friend, Laury , on a voluntary status after she has determined again that she is going to kill herself if she does not stop worrying so much about breathing or not breathing. This is Aurora's third hospitalization at [facility] since 12/15/17. She has also had a stay at [facility] for a few days last week. She was discharged from the hospital and 2 days later came to this hospital and stated "no one is helping me." Today, when she was not getting attention that she needed, she stated "you guys aren't helping me, you're treating me like dirt." Aurora has recently given up the custody of her children to her sister. She has not been able to work. FAMILY HISTORY: She has two sisters who have endured similar anxious episodes. They have, according to Aurora, "Gotten over it." SUBSTANCE ABUSE HISTORY: She does not drink. She does not use alcohol. She used to smoke cigarettes 1-1/ 2 weeks ago. She is not in any kind of treatment program. SOCIAL HISTORY: She lives in [place]. She kicked out her boyfriend and has given custody of her 5 children, Collette is 1, Yen is 3, Mena is 6, Cameron is 9, Mau is 12, to one of her sisters. The youngest, Collette is the daughter of her boyfriend. 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 She states this is not okay due to financial constraints. She has not been in the . She denies any legal problems. REVIEW OF SYSTEMS: The patient reports feeling fatigued. She denies shortness of breath, although she is very focused on her breathing. She denies heat or cold intolerance. She denies chest pain or abdominal pain. She denies neurological symptoms. She denies fevers or changes in weight. MENTAL STATUS EXAM: This is a 32-year-old woman who appears somewhat older than her stated age. She has short cropped hair that she runs her fingers through a lot. She has tattoos up and down both of her arms. She is tearful. Her grooming is adequate. She is fidgeting. She is cooperative and reasonably calm, although this may be slightly irritable. Her speech is of a normal rate, tone, and volume. She is dysthymic. She has a full range of affect. Her thought processes, rate is normal. She has generally logical thoughts. She is not delusional, but she does have obsessive thoughts about breathing which get in the way of her feeling comfortable. She is not homicidal or suicidal at this time. She has no desire or intent to hurt her children. She is not having auditory or visual or any other kind of hallucination. Her insight is fair. Her judgment is fair. She is alert and oriented x3. She is of below-average intelligence. DIAGNOSES: [place] I: Generalized anxiety disorder and major depressive disorder. [place] II: Deferred. IMPRESSION: Yamila is a 32-year-old woman who is having an exacerbation of intense anxiety and depression following the revelation that a friend of hers in her sleep. This has been problematic for her in that she is focused on her breathing and what about it is normal and what is not normal. It causes her to not sleep and in the context of not sleeping, she has become so obsessive that it borders on psychosis. IDALMIS ALFONSO, MASON [id number]/[facility] [place] [place] #: [id number] MTDRhea
[2018-01-23] MEDS ORDERED: CMC:ClomiPRAMINE (NF) 25 MG CAP PO SCH (21:00)
[2018-01-23] MEDS: risperiDONE TAB* 2 MG PO SCH (22:20)
[2018-01-24] MEDS: Vitamin THERAPEUTIC TAB PO SCH (08:18)
[2018-01-24] MEDS: risperiDONE TAB* 1 MG PO SCH (08:18)
[2018-01-24] MEDS: busPIRone TAB* 15 MG PO SCH ×2 (08:18→19:42)
[2018-01-24] MEDS: risperiDONE TAB* 2 MG PO SCH (19:42)
[2018-01-24] MEDS: CMCS ClomiPRAMINE (NF) 25 MG CAP PO SCH (19:42)
--- NOTE | 2018-01-24 21:07 | PN ---
Subjective - Subjective Date of Service: 01/24/18 Service Type: 13965 Hosp care 15 min low complexity Subjective: Aurora continues have obcessive thoughts that she might not breath and . Keeps asking about her meds. Mostly in bed all day long. Otherwise denies hallucinations or delusions. Speech is mostly un-intentengeable due to slurring. Objective - Appearance Appearance: Healthy Appearing Dysmorphic Features: No Hygiene: Mal-odorous Grooming: Disheveled - Behavior Psychomotor Activities: Abnormal-Decreased Exhibits Abnormal Movement: No - Attitude and Relatedness Attitude and Relatedness: Cooperative Eye Contact: Good - Speech Quality: Unpressured Latencies: Normal Quantity: Appropriate - Mood Patient's Decription of Mood: "Terrible" - Affect Observed Affect: Constricted - Thought Process Patient's Thought Process: Coherent, Circumstantial, Impoverished Thought Content: No Passive Wish, No Suicidal Planning, No Homicidal Ideation, No Paranoid Ideation - Sensorium Experiencing Hallucinations: No, Sensorium is Clear Type of Hallucinations: Visual: No, Auditory: No, Command: No - Level of Consciousness Level of Consciousness: Alert Orientation: Yes Intact, Yes Orientated to Time, Yes Orientated to Place, Yes Orientated to Person - Impulse Control Impulse Control: Tenuous - Insight and Judgement Insight and Judgement: Poor - Group Participation Particating in Group Activities: No - Medication Management Medication Management Adherence: Yes Assessment - Assessment Merits Inpatient Hospitalization: For Immediate Safety, For Stabilization Clinical Impression: Still symptomatic and need time on the unit. Plan - Plan Treatment Plan: Name: ANASTACIA ROY Birthdate: 1985 [id number] Continued Medication Management: Continue Outpt Medication Medications: Current Medications Acetaminophen (Tylenol Tab*) 650 mg PO Q4H PRN PRN Reason: PAIN or TEMP > 101 F Al Hydrox/Mg Hydrox/Simethicone (Maalox Plus*) 30 ml PO Q4H PRN PRN Reason: INDIGESTION Buspirone HCl (Buspar Tab *) 15 mg PO BID PENDING SALE TO [facility] Last Admin: 01/24/18 19:42 Dose: 15 mg Clomipramine HCl (Clomipramine (Nf)) 50 mg PO BEDTIME PENDING SALE TO [facility] Last Admin: 01/24/18 19:42 Dose: 50 mg Diazepam (Valium Tab(*)) 5 mg PO BID PRN PRN Reason: ANXIETY Last Admin: 01/23/18 08:57 Dose: 5 mg Multivitamins (Theragran Tab*) 1 tab PO DAILY ELOY Last Admin: 01/24/18 08:18 Dose: 1 tab Risperidone (Risperdal*) 0.5 mg PO DAILY ELOY Last Admin: 01/24/18 08:18 Dose: 0.5 mg Risperidone (Risperdal*) 2 mg PO BEDTIME ELOY Last Admin: 01/24/18 19:42 Dose: 2 mg - Discharge Plan Discharge Plan: Outpatient Follow Up Outpatient Program: [facility]
[2018-01-25] MEDS: risperiDONE TAB* 1 MG PO SCH (07:51)
[2018-01-25] MEDS: busPIRone TAB* 15 MG PO SCH ×2 (07:51→19:58)
[2018-01-25] MEDS: Vitamin THERAPEUTIC TAB PO SCH (07:51)
[2018-01-25] MEDS: Diazepam TAB(*) 5 MG PO PRN (15:13)
[2018-01-25] MEDS ORDERED: CMCS ClomiPRAMINE (NF) 25 MG CAP PO SCH (19:00)
[2018-01-25] MEDS: risperiDONE TAB* 2 MG PO SCH (19:58)
[2018-01-26 08:32] VITALS: BP 100/72
[2018-01-26] MEDS: busPIRone TAB* 15 MG PO SCH (08:58)
[2018-01-26] MEDS: risperiDONE TAB* 1 MG PO SCH (08:59)
[2018-01-26] MEDS: Vitamin THERAPEUTIC TAB PO SCH (08:59)
[2018-01-26] MEDS: Diazepam TAB(*) 5 MG PO PRN (10:31)
--- NOTE | 2018-01-27 10:14 | DS ---
CC: [facility] * DISCHARGE SUMMARY: DATE OF ADMISSION: 01/22/18 DATE OF DISCHARGE: 01/26/18. PROVIDER: Idalmis Alfonso NP (psychiatry) SUPERVISING PHYSICIAN: Dr. 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 [place] II: Deferred. CONDITION AT THE TIME OF DISCHARGE: Mildly improved, psychiatrically cleared, stable. She did participate in a few groups, was not social with peers. Her family is concerned about her discharge but they are agreeable to it. She has done well here psychiatrically and she tolerated her new medication well. MENTAL STATUS EXAM: At the time of discharge, Shanthi is calm and cooperative and makes good eye contact. She is tearful. She is alert and oriented x3. Her grooming is adequate. Her speech pace is normal and slurred. Thought processes are logical with the exception of an obsessive thought. She is not frankly psychotic. She is not frankly delusional. She denies AH, VH, SI, and HI. Insight and judgment are fair. She is willing to follow up and she is urged to see her therapist. DISCHARGE INSTRUCTIONS TO THE PATIENT: A. Medications: 1. She is taking clomipramine 50 mg at 7 p.m. due to heartburn. 2. Diazepam 5 mg b.i.d. for anxiety. 3. Risperdal she has, but I discontinued it verbally with her, as I do not think she needs it any longer. B. Psychiatric treatment was rendered. The patient was admitted to the adult behavioral unit and was placed on 15-minute checks for safety. Shanthi did not do exceptionally well on the unit. She did not go to many groups. She did not interact with other peers. She struggled with her obsessive thoughts and was incredibly meaty. She did tolerate her med change well. Clomipramine was started at 50 mg with a titration up in her outpatient setting. Her HgA1c and lipid panel are valid from her last admission 3 weeks ago. This is Shanthi's third admission here at [facility] in a month and a half and her fourth admission to a psychiatric hospital in a month and a half. She is struggling with an obsessive thought that she either does not want to breathe or she will not breathe. We worked with her on using affirmations to state that she can in fact breathe and are hoping that the clomipramine added will reduce her obsessive thought. She states she is allergic to SSRIs, she asked frequently for help and reassurance. I met briefly with her mother at discharge. Her mother is confused about what to do for her. The plan, if she comes back, is to attempt to send her to [facility] as she has not improved significantly on the unit. No consults were entered. She is mildly improved in that she is not in overt distress. IDALMIS ALFONSO, MASON [id number]/[facility] #: [id number] LEROY
== END 2018-01-26 15:18 | disposition home or self-care (01) | DRG 755 ==
LOC: ED 12:56 → BSU 17:20 → ED 20:45
PROVIDERS: ADMIT Psychiatry & Neurology Psychiatry; ATTEND Psychiatry & Neurology Psychiatry
DX: F43.10 Post-traumatic stress disorder, unspecified (principal); R45.851 Suicidal ideations; F41.9 Anxiety disorder, unspecified; F29 Unspecified psychosis not due to a substance or known physiological condition; Z81.8 Family history of other mental and behavioral disorders
CPT/HCPCS: 36415; 80053; 80307; 80320; 80329; 81003; 81015; 84443; 85025; 87086; 99222; 99231; 99238; 99284; A9270-GY; G0480

== ENCOUNTER 2018-04-26 15:54 | Emergency (ER) | payer OTHER ==
[2018-04-26 16:25] VITALS: BP 116/79
--- NOTE | 2018-04-26 17:23 | UC ---
UC General HPI - History of Current Complaint Chief Complaint: UCGU Stated Complaint: PERSONAL Time Seen by Provider: 04/26/18 17:08 Hx Obtained From: Patient Hx Last Menstrual Period: 1 week ago Onset/Duration: Lasting Weeks Current Severity: None Pain Intensity: 0 - Allergy/Home Medications Allergies/Adverse Reactions: Allergies Allergy/AdvReac Type Severity Reaction Status Date / Time citalopram [From Celexa] Allergy Hives Verified 01/22/18 13:25 clonazepam [From Klonopin] AdvReac Insomnia Verified 01/22/18 13:25 sertraline AdvReac Insomnia Verified 01/22/18 13:25 Home Medications: Home Medications Paliperidone SUSTENNA* [Invega Sustenna*] 117 mg IM Q30D 04/26/18 [History Confirmed 04/26/18] hydrOXYzine HCL TAB* [Atarax TAB 50 MG *] 50 mg PO BID 04/26/18 [History Confirmed 04/26/18] PMH/Surg Hx/FS Hx/Imm Hx Previously Healthy: Yes Other History Of: Negative For: Anticoagulant Therapy - Surgical History Surgical History: None Surgery Procedure, Year, and Place: pt denies hx - Family History Known Family History: Positive: Hypertension Negative: Cardiac Disease - Social History Alcohol Use: None Alcohol Amount: pt denies alcohol use Substance Use Type: None Substance Use Comment - Amount & Last Used: pt denies drug use Smoking Status (MU): Never Smoked Tobacco Amount Used/How Often: Pt denies tobacco use Length of Time of Smoking/Using Tobacco: pt denies tobacco use Have You Smoked in the Last Year: No When Did the Patient Quit Smoking/Using Tobacco: pt denies tobacco use - Immunization History Most Recent Influenza Vaccination: unknown Most Recent Pneumonia Vaccination: unknown Review of Systems Constitutional: Negative Skin: Negative Eyes: Negative ENT: Negative Respiratory: Negative Cardiovascular: Negative Gastrointestinal: Negative Genitourinary: Negative Motor: Negative Neurovascular: Negative Musculoskeletal: Negative Neurological: Negative Psychological: Negative Is Patient Immunocompromised?: No All Other Systems Reviewed And Are Negative: Yes Physical Exam - Summary Physical Exam Summary: Patient requesting a test, states she has not had a period in 3 months , denies any pain, weight gain or other symtpoms Triage Information Reviewed: Yes Appearance: Well-Appearing, No Pain Distress, Well-Nourished Vital Signs: Initial Vital Signs Temp 97.6 F 04/26/18 16:17 Pulse 104 04/26/18 16:17 Resp 18 04/26/18 16:17 BP 116/79 04/26/18 16:17 Pulse Ox 98 04/26/18 16:17 Vital Signs Reviewed: Yes Eye Exam: Normal ENT Exam: Normal Dental Exam: Normal Neck exam: Normal Respiratory Exam: Normal Cardiovascular Exam: Normal Abdominal Exam: Normal Abdomen Description: Positive: Other: - deferred pelvic exam Pelvic Exam: Positive: External Exam Normal Musculoskeletal Exam: Normal Neurological Exam: Normal Psychological Exam: Normal Skin Exam: Normal Course/Dx - Course Course Of Treatment: hx obtained, exam performed ua was negative - Differential Dx - Multi-Symptom Provider Diagnoses: amenorrhea Discharge - Sign-Out/Discharge Documenting (check all that apply): Patient Departure All imaging exams completed and their final reports reviewed: No Studies - Discharge Plan Condition: Stable Disposition: HOME Referrals: No Primary Care Phys,NOPCP [Primary Care Provider] - Additional Instructions: 1. your test today was negative, follow up with your [facility] if your period dose not resume 2. if there is any other issues that arise, please follow up - Billing Disposition and Condition Condition: STABLE Disposition: Home
== END 2018-04-26 17:17 | disposition home or self-care (01) ==
LOC: UCCORT 15:54
DX: N91.2 Amenorrhea, unspecified (principal); Z88.1 Allergy status to other antibiotic agents; Z88.8 Allergy status to other drugs, medicaments and biological substances
CPT/HCPCS: 84702; 99211; G0463

== ENCOUNTER 2018-07-29 13:46 | Emergency (ER) | payer OTHER ==
--- NOTE | 2018-07-29 14:01 | ED ---
Psychiatric Complaint - HPI Summary HPI Summary: This pt is a 32 y/o female presenting to [facility] c/o depression and SI. Pt notes she has been depressed for about 1 week now. She admits to SI thoughts, but denies SI plan or HI. Pt states she has been sleeping, drinking, and eating well. Denies any past suicide attempts. Pt smokes tobacco. Denies drug and alcohol use. PMHx: protein deficiency- Alpha 1, anxiety, depression. - History Of Current Complaint Chief Complaint: EDMentalHealth Hx Obtained From: Patient Hx Last Menstrual Period: 1 week ago Onset/Duration: Lasting Weeks - 1, Still Present Timing: Weeks - 1 Severity Currently: Moderate Character: Depressed Aggravating Factor(s): Nothing Alleviating Factor(s): Nothing Associated Signs And Symptoms: Positive: Negative Related History: Positive For: Prior Psychiatric Issues Has Suicidal: Reports: Thoughts. Denies: With A Plan Has Homicidal: Denies: Thoughts, With A Plan - Allergies/Home Medications Allergies/Adverse Reactions: Allergies Allergy/AdvReac Type Severity Reaction Status Date / Time citalopram [From Celexa] Allergy Hives Verified 07/29/18 14:11 clonazepam [From Klonopin] AdvReac Insomnia Verified 07/29/18 14:11 sertraline AdvReac Insomnia Verified 07/29/18 14:11 Home Medications: Home Medications Paliperidone ER TAB* [Invega ER TAB*] 3 mg PO DAILY 07/29/18 [History Confirmed 07/29/18] PMH/Surg Hx/FS Hx/Imm Hx Endocrine/Hematology History: Reports: Other Endocrine/Hematological Disorders - protein deficiency - Alpha 1 Denies: Hx Anticoagulant Therapy, Hx Diabetes, Hx Thyroid Disease Cardiovascular History: Denies: Hx Hypertension Respiratory History: Reports: Hx Asthma - prescribed albuterol inhaler in personal belongings Denies: Hx Chronic Obstructive Pulmonary Disease (COPD) GI History: Denies: Hx Ulcer Sensory History: Denies: Hx Contacts or Glasses, Hx Hearing Aid Opthamlomology History: Denies: Hx Contacts or Glasses Psychiatric History: Reports: Hx Anxiety, Hx Eating Disorder - when depressed - not eat or drink, Hx Depression, Hx Panic Disorder, Hx Inpatient Treatment - pt relates "a long time ago" at [facility], Hx of Violent Episodes Against Others Denies: Hx Bipolar Disorder - Surgical History Surgery Procedure, Year, and Place: pt denies hx Infectious Disease History: No Infectious Disease History: Reports: Hx of Known/Suspected MRSA - in urine Denies: Hx Clostridium Difficile, Hx Hepatitis, Hx Human Immunodeficiency Virus (HIV), Hx Shingles, Hx Tuberculosis, Hx Known/Suspected VRE, Hx Known/ Suspected VRSA, History Other Infectious Disease, Traveled Outside the [place] in Last 30 Days - Family History Known Family History: Positive: Hypertension Negative: Cardiac Disease - Social History Alcohol Use: None Alcohol Amount: pt denies alcohol use Hx Substance Use: No Substance Use Type: Reports: None Substance Use Comment - Amount & Last Used: pt denies drug use Hx Tobacco Use: Yes Smoking Status (MU): Heavy Every Day Tobacco Smoker Amount Used/How Often: Pt denies tobacco use Length of Time of Smoking/Using Tobacco: pt denies tobacco use Have You Smoked in the Last Year: No Review of Systems Negative: Fever, Chills Cardiovascular: Negative Respiratory: Negative Gastrointestinal: Negative Psychological: Other - POS: SI thoughts Positive: Depressed. Negative: Other - NEG: SI plan, HI All Other Systems Reviewed And Are Negative: Yes Physical Exam - Summary Physical Exam Summary: VITAL SIGNS: Reviewed. GENERAL: Patient is a well-developed and nourished female. Patient is not in any acute respiratory distress. HEAD AND FACE: No signs of trauma. No ecchymosis, hematomas or skull depressions. No sinus tenderness. EYES: PERRLA, EOMI x 2, No injected conjunctiva, no nystagmus. EARS: Hearing grossly intact. Ear canals and tympanic membranes are within normal limits. MOUTH: Oropharynx within normal limits. NECK: Supple, trachea is midline, no adenopathy, no JVD, no carotid bruit, no c- spine tenderness, neck with full ROM. CHEST: Symmetric, no tenderness at palpation LUNGS: Clear to auscultation bilaterally. No wheezing or crackles. CVS: Regular rate and rhythm, S1 and S2 present, no murmurs or gallops appreciated. ABDOMEN: Soft, non-tender. No signs of distention. No rebound, no guarding, and no masses palpated. Bowel sounds are normal. EXTREMITIES: FROM in all major joints, no edema, no cyanosis or clubbing. NEURO: Alert and oriented x 3. No acute neurological deficits. Speech is normal and follows commands. SKIN: Dry and warm PSYCH: Depressed, quiet, with SI thoughts. Triage Information Reviewed: Yes Vital Signs On Initial Exam: Initial Vitals Temp Pulse Resp BP Pulse Ox 98.4 F 109 20 146/95 98 07/29/18 13:54 07/29/18 13:54 07/29/18 13:54 07/29/18 13:54 07/29/18 13:54 Vital Signs Reviewed: Yes Diagnostics - Vital Signs Vital Signs Temp Pulse Resp BP Pulse Ox 07/29/18 13:54 98.4 F 109 20 146/95 98 - Laboratory Result Diagrams: 07/29/18 14:34 07/29/18 14:34 Lab Statement: Any lab studies that have been ordered have been reviewed, and results considered in the medical decision making process. Course/Dx - Course Assessment/Plan: Blood work w/o a significant abnormality. She is medically cleared. She is awaiting for a MHE. Patient is hemodynamically stable and A+O x 3. Pt had a mental health evaluation and her case was reviewed by Dr. Hoskins, psychiatrist. Dr. Hoskins cleared the pt for discharge. Pt will be discharged home with outpatient follow up at [facility] and dx anxiety. - Differential Dx/Clinical Impression Differential Diagnosis/HQI/PQRI: Positive: Anxiety, Depression, Suicidal Ideation Provider Diagnosis: Anxiety Discharge - Sign-Out/Discharge Documenting (check all that apply): Patient Departure - Discharge home Patient Received Moderate/Deep Sedation with Procedure: No - Discharge Plan Condition: Stable Disposition: HOME Prescriptions: Nitrofurantoin Monohyd/M-Cryst [Macrobid 100 mg Capsule] 100 mg PO BID #20 cap Patient Education Materials: Depression (ED), Anxiety (ED) Referrals: [facility] (Psychiatry) [Outside] (Follow up with your scheduled appt this Friday) Heaven RODRIGUEZ,Best Rocha [Primary Care Provider] - - Billing Disposition and Condition Condition: STABLE Disposition: Home - Attestation Statements Document Initiated by Scribe: Yes Documenting Scribe: Mirian Olguin Provider For Whom Scribe is Documenting (Include Credential): Ha Gibson MD Scribe Attestation: Mirian Melo, scribed for Ha Gibson MD on 07/31/18 at 2036. Scribe Documentation Reviewed: Yes Provider Attestation: The documentation as recorded by the scribe, Mirian Olguin accurately reflects the service I personally performed and the decisions made by me, Ha Gibson MD Status of Scribe Document: Viewed
[2018-07-29 14:52] LABS: Urine Appearance Cloudy; Urine Bacteria 1+ (Absent); Urine Bilirubin Negative (Negative); Urine Blood 1+ (Negative); Urine Color Yellow; Urine Glucose Negative (Negative); Urine Ketones Negative (Negative); Urine Nitrite Negative (Negative); Urine Protein Negative (Negative); Urine Red Blood Cell Trace(0-2/hpf) (Absent); Urine Specific Gravity 1.015 (1.010-1.030); Urine Squamous Epithelial Cell Present (Absent); Urine Urobilinogen Negative (Negative); Urine White Blood Cell Trace(0-5/hpf) (Absent)
[2018-07-29 14:58] LABS: Barbiturates Urine Screen None Detected (None Detect); Benzodiazepine Urine Screen None Detected (None Detect); Urine Cannabinoids Screen None Detected (None Detect)
[2018-07-29 15:06] LABS: ABS Basophils 0 10^3/ul (0-0.2); ABS Eosinophils 0.1 10^3/ul (0-0.6); ABS Lymphocytes 1.2 10^3/ul (1.0-4.8); ABS Monocytes 0.5 10^3/ul (0-0.8); ABS Neutrophils 4.6 10^3/ul (1.5-7.7); ABS Nucleated RBC 0.1 10^3/ul; Eosinophil % 1.5 %; Hematocrit 44 % (35-47); Hemoglobin 15.2 g/dl (12.0-16.0); Lymphocyte % 18.5 %; Mean Corpuscular HGB Conc 34 g/dl (31-36); Mean Corpuscular Hemoglobin 29 pg (27-31); Mean Corpuscular Volume 85 fL (80-97); Mean Platelet Volume 6.7 fL (7.4-10.4); Nucleated Red Blood Cells % 0.8; Platelet Count 197 10^3/ul (150-450); Red Blood Count 5.17 10^6/ul (4.00-5.40); Red Cell Distribution Width 14 % (10.5-15); White Blood Count 6.4 10^3/ul (3.5-10.8)
[2018-07-29 15:16] LABS: ALT 23 U/L (7-52); AST 20 U/L (13-39); Alkaline Phosphatase 89 U/L (34-104); Anion Gap 6 mmol/L (2-11); BUN/Creatinine Ratio 20.3 (8-20); Blood Urea Nitrogen 14 mg/dL (6-24); CO2 Carbon Dioxide 28 mmol/L (22-32); Calcium 9.7 mg/dL (8.6-10.3); Chloride 105 mmol/L (101-111); EGFR African American 119.3 (>60); EGFR Non-African American 98.6 (>60); Globulin 2.5 g/dL (2-4); Glucose 97 mg/dL (70-100); Potassium 3.9 mmol/L (3.5-5.0); Sodium 139 mmol/L (135-145); Total Protein 7.5 g/dL (6.4-8.9)
[2018-07-29 15:36] LABS: Acetaminophen < 15 mcg/mL; Alcohol < 10 mg/dL (<10); Salicylate < 2.50 mg/dL (<30)
[2018-07-29 15:43] LABS: TSH (Thyroid Stimulating Horm) 2.68 mcIU/mL (0.34-5.60)
[2018-07-29] MEDS ORDERED: Nicotine Inhaler* 10 MG AMP INH ONE (15:57)
[2018-07-29] MEDS ORDERED: Mouth Piece, Nicotine* 1 EACH CARTRIDGE ONE (16:09)
[2018-07-29 17:59] VITALS: BP 108/84
--- NOTE | 2018-07-31 12:48 | PN ---
Progress Note - Progress Note Date of Service: 07/29/18 Note: Pt. seen in ED 07/29 for MHE. Urine culture obtained at that time. Culture today is growing 75-100k e. coli. I called and spoke with pt. today at 1245 and discussed results. Pt. states she has had UTIs in the past and would like to start antibx. Rx for macrobid sent to pharm. based on culture.
== END 2018-07-29 17:57 | disposition home or self-care (01) ==
LOC: ED 13:46
DX: F41.9 Anxiety disorder, unspecified (principal); F32.9 Major depressive disorder, single episode, unspecified; N39.0 Urinary tract infection, site not specified; B96.20 Unspecified Escherichia coli [E. coli] as the cause of diseases classified elsewhere; J45.909 Unspecified asthma, uncomplicated; Z88.8 Allergy status to other drugs, medicaments and biological substances; F17.200 Nicotine dependence, unspecified, uncomplicated
CPT/HCPCS: 36415; 80053; 80307; 80320; 80329; 81003; 81015; 84443; 85025; 87077; 87086; 87186; 99283; A9270-GY; G0480

== ENCOUNTER 2018-11-06 10:18 | Emergency (ER) | payer MEDICAID, OTHER ==
[2018-11-06 10:35] VITALS: BP 120/76
--- NOTE | 2018-11-06 10:36 | UC ---
Respiratory Complaint HPI - HPI Summary HPI Summary: 32 yo female presents with intermittently productive cough and chest congestion for the last week. She has been taking mucinex OTC with little relief. She is still smoking daily. She denies fever, chills, sinus symptoms, sore throat, SOB , chest pain. Does not have any inhalers at home that she uses - History of Current Complaint Chief Complaint: UCGeneralIllness Stated Complaint: COUGH CHEST CONGESTION Time Seen by Provider: 11/06/18 10:36 Hx Obtained From: Patient Hx Last Menstrual Period: 10/11/18 Severity Initially: Mild Severity Currently: Mild Pain Intensity: 3 Pain Scale Used: 0-10 Numeric Character: Cough: Productive - Allergies/Home Medications Allergies/Adverse Reactions: Allergies Allergy/AdvReac Type Severity Reaction Status Date / Time citalopram [From Celexa] Allergy Hives Verified 11/06/18 10:35 clonazepam [From Klonopin] AdvReac Insomnia Verified 11/06/18 10:35 sertraline AdvReac Insomnia Verified 11/06/18 10:35 Home Medications: Home Medications guaiFENesin [Mucinex] 11/06/18 [History] PMH/Surg Hx/FS Hx/Imm Hx Psychological History: Anxiety, Depression, Schizophrenia Other History Of: Negative For: Anticoagulant Therapy - Surgical History Surgical History: None Surgery Procedure, Year, and Place: pt denies hx - Family History Known Family History: Positive: Hypertension Negative: Cardiac Disease - Social History Lives: With Family Alcohol Use: None Alcohol Amount: pt denies alcohol use Substance Use Type: None Substance Use Comment - Amount & Last Used: pt denies drug use Smoking Status (MU): Heavy Every Day Tobacco Smoker Type: Cigarettes Amount Used/How Often: 1.5 PPD Length of Time of Smoking/Using Tobacco: pt denies tobacco use Have You Smoked in the Last Year: No When Did the Patient Quit Smoking/Using Tobacco: pt denies tobacco use - Immunization History Most Recent Influenza Vaccination: unknown Most Recent Pneumonia Vaccination: unknown Review of Systems All Other Systems Reviewed And Are Negative: Yes Constitutional: Positive: Negative Skin: Positive: Negative Eyes: Positive: Negative ENT: Positive: Negative Respiratory: Positive: Cough Cardiovascular: Positive: Negative Gastrointestinal: Positive: Negative Neurovascular: Positive: Negative Neurological: Positive: Negative Psychological: Positive: Negative Physical Exam - Summary Physical Exam Summary: GENERAL: NAD. WDWN. No pain distress. SKIN: No rashes, sores, lesions, or open wounds. HEENT: Head: AT/NC Eyes: Conjunctiva clear without inflammation or discharge. Ears: Hearing grossly normal. TMs intact, no bulging, erythema, or edema. Nose: Nasal mucosa pink and moist. NTTP maxillary and frontal sinus. Throat: Posterior oropharynx without exudates, erythema, or tonsillar enlargement. Uvula midline. NECK: Supple. Nontender. No lymphadenopathy. CHEST: Mild wheezing throughout. No r/r. No accessory muscle use. Breathing comfortably and in no distress. CV: RRR. Without m/r/g. Pulses intact. Cap refill <2seconds NEURO: Alert. PSYCH: Age appropriate behavior. Triage Information Reviewed: Yes Vital Signs: Initial Vital Signs Temp 98.1 F 11/06/18 10:29 Pulse 98 11/06/18 10:29 Resp 18 11/06/18 10:29 BP 120/76 11/06/18 10:29 Pulse Ox 98 11/06/18 10:29 Vital Signs Reviewed: Yes Respiratory Course/Dx - Course Course Of Treatment: Suspect bronchitis. Discussed obtaining CXR today, but pt prefers to wait and be treated at this time. Will rx for augmentin and albuterol inhaler - Differential Dx/Diagnosis Provider Diagnosis: Bronchitis Discharge - Sign-Out/Discharge Documenting (check all that apply): Patient Departure All imaging exams completed and their final reports reviewed: No Studies - Discharge Plan Condition: Stable Disposition: HOME Prescriptions: Albuterol HFA INHALER* [Ventolin HFA Inhaler*] 1 - 2 puff INH Q6H PRN #1 mdi PRN Reason: Cough Amoxicillin/Clavulanate TAB* [Augmentin TAB 875*] 875 mg PO BID #14 tab Patient Education Materials: Acute Bronchitis (ED) Referrals: Best Collado PA [Primary Care Provider] - Additional Instructions: If you develop a fever, shortness of breath, chest pain, new or worsening symptoms - please call your PCP or go to the ED immediately. - Billing Disposition and Condition Condition: STABLE Disposition: Home
== END 2018-11-06 10:48 | disposition home or self-care (01) ==
LOC: UCEAST 10:18
DX: J40 Bronchitis, not specified as acute or chronic (principal); Z88.8 Allergy status to other drugs, medicaments and biological substances; F17.210 Nicotine dependence, cigarettes, uncomplicated
CPT/HCPCS: 99212; G0463

== ENCOUNTER 2018-11-08 14:30 | Emergency (ER) | payer MEDICAID ==
[2018-11-08 14:59] VITALS: BP 106/70
--- NOTE | 2018-11-08 15:31 | UC ---
General HPI - HPI Summary HPI Summary: pt c/o a cough that began 1 week ago, wheezing and pain in L side of back with the coughing and movement. states seen [facility] on 11/06/18, dx with bronchitis and tx with Augmentin and albuterol. returns here for ongoing s/s's. denies fever, calf pain/swelling, prolong travel hx and BCP use. + hx asthma. - History of Current Complaint Chief Complaint: UCGeneralIllness Stated Complaint: COUGH Time Seen by Provider: 11/08/18 15:19 Hx Obtained From: Patient Hx Last Menstrual Period: 10/11/18 Onset/Duration: Gradual Onset Timing: Constant Pain Intensity: 0 Associated Signs & Symptoms: Positive: Cough, SOB, Wheezing. Negative: Chest Pain, Fever - Allergy/Home Medications Allergies/Adverse Reactions: Allergies Allergy/AdvReac Type Severity Reaction Status Date / Time citalopram [From Celexa] Allergy Hives Verified 11/08/18 14:51 clonazepam [From Klonopin] AdvReac Insomnia Verified 11/08/18 14:51 sertraline AdvReac Insomnia Verified 11/08/18 14:51 PMH/Surg Hx/FS Hx/Imm Hx Respiratory History: Asthma Psychological History: Depression, Bipolar Disorder Other History Of: Negative For: Anticoagulant Therapy - Surgical History Surgical History: None Surgery Procedure, Year, and Place: pt denies hx - Family History Known Family History: Positive: Hypertension Negative: Cardiac Disease - Social History Lives: With Family Alcohol Use: None Alcohol Amount: pt denies alcohol use Substance Use Type: None Substance Use Comment - Amount & Last Used: pt denies drug use Smoking Status (MU): Heavy Every Day Tobacco Smoker Type: Cigarettes Amount Used/How Often: 3 PPD Length of Time of Smoking/Using Tobacco: pt denies tobacco use Have You Smoked in the Last Year: No When Did the Patient Quit Smoking/Using Tobacco: pt denies tobacco use - Immunization History Most Recent Influenza Vaccination: unknown Most Recent Pneumonia Vaccination: unknown Vaccination Up to Date: Yes Review of Systems All Other Systems Reviewed And Are Negative: Yes Respiratory: Positive: Shortness Of Breath, Cough Musculoskeletal: Positive: Myalgia - L back Physical Exam Triage Information Reviewed: Yes Appearance: Well-Appearing Vital Signs: Initial Vital Signs Temp 97.2 F 11/08/18 14:53 Pulse 116 11/08/18 14:53 Resp 20 11/08/18 14:53 BP 106/70 11/08/18 14:53 Pulse Ox 96 11/08/18 14:53 Vital Signs Reviewed: Yes Eyes: Positive: Conjunctiva Clear ENT: Positive: Pharynx normal, TMs normal. Negative: Nasal congestion, Nasal drainage Neck: Positive: Supple, Nontender, No Lymphadenopathy Respiratory: Positive: No respiratory distress, Decreased breath sounds, Wheezing. Negative: Crackles, Rhonchi Cardiovascular: Positive: RRR, No Murmur. Negative: Tachycardia Abdomen Description: Positive: Nontender Musculoskeletal Exam: Other - L side of back line cook to palpation and with active ROM Musculoskeletal: Positive: ROM Intact, No Edema, Other: - No calf tenderness or cords Neurological: Positive: Alert Psychological: Positive: Normal Response To Family, Age Appropriate Behavior Skin Exam: Normal Skin: Negative: Rashes Diagnostics - Radiology No standard instances Radiology Interpretation Completed By: Radiologist - IMPRESSION: No active cardiopulmonary disease is noted. Course/Dx - Differential Dx - Multi-Symptom Differential Diagnoses: Other - Not hypoxic and not tachycardic on exam plus no calf cords/tenderness or swelling thus I do not feel pt has a PE. Also her L back pain is reproducible with palpation and active ROM. cxr=NAD, no fever and not focal findings on lung exam to suggest pneumonia. hx asthma and pt having brochospasm thus will add a steroid. - Diagnoses Provider Diagnosis: Asthma Discharge - Sign-Out/Discharge Documenting (check all that apply): Patient Departure All imaging exams completed and their final reports reviewed: Yes - Discharge Plan Condition: Stable Disposition: HOME Prescriptions: predniSONE [Prednisone 20 MG TAB] 40 mg PO DAILY 5 Days #10 tablet Patient Education Materials: Asthma (ED) Referrals: Best Collado PA [Primary Care Provider] - 5 Days Additional Instructions: CONTINUE THE ALBUTEROL INHALER 2 PUFFS EVERY 6 HOURS. TAKE THE ANTIBIOTIC DIRECTED. - Billing Disposition and Condition Condition: STABLE Disposition: Home
== END 2018-11-08 15:54 | disposition home or self-care (01) ==
LOC: UCCORT 14:30
DX: J45.909 Unspecified asthma, uncomplicated (principal); F17.210 Nicotine dependence, cigarettes, uncomplicated; Z88.8 Allergy status to other drugs, medicaments and biological substances
CPT/HCPCS: 71046; 99212; G0463

== ENCOUNTER 2018-11-25 11:16 | Emergency (ER) | payer MEDICAID ==
--- OUTSIDE RECORDS SUMMARY | 2018-11-25 11:28 | XMS REPORT | Continuity of Care Document ---
:1985 External Reference #:[id number] Author Name Tony Colmenares N.P. Address [address] [place] [address] Care Team Providers Name Role Phone Ailyn Arana M.D. 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 Payers Date Identification Numbers Payment Provider Subscriber Policy Number: [id number] Medicaid/[employer] Yamila Roblero PayID: [id number] [address] [place] [address] Family History Date Family Member(s) Observation Comments Father 61 Father Hypercholesterolemia Father Diabetes Father Anxiety Father Hypertension Mother 60 Mother No Current Problems Children 5 First Son 13 Second Son 10 First Daughter 7 Second Daughter 4 Third Daughter 2 Siblings 4 Social History Type Date Description Comments Sex Unknown Lives With Boyfriend Lives With Children Work Status Unemployed ETOH Use Denies alcohol use Tobacco Use Start: Unknown Heavy tobacco smoker (more than 10 cigarettes/day) Recreational Drug Use Denies Drug Use Allergies, Adverse Reactions, Alerts Active Allergies Reaction Severity Comments Date Zofran 11/23/2018 Celexa 11/23/2018 Sertraline 11/23/2018 Ativan 11/23/2018 Medications Active Medications SIG Qnty Indications Ordering Provider Date Benztropine Mesylate 1 tab by mouth 60tabs G24.01 Ailyn Arana, 2018 twice a day M.DAmaury 1mg Tablets Hydroxyzine Pamoate Take One Capsule F41.9 Unknown By Mouth Three 50mg Capsules Times A Day as Needed Clomipramine HCL Take Three F20.9 Unknown 50mg Capsules By Mouth Capsules Every Day F42.9 Paliperidone ER Take One Tablet By Mouth F20.9 Unknown 3mg Tablets ER 24HR Every Day Proair HFA Inhale One To Two Puffs By J44.9 Unknown 108(90Base) mcg/Act Aerosol Mouth Every 6 Hours as Needed For Cough Doxycycline Hyclate Take One Capsule By Mouth J18.0 Unknown 100mg Capsules Twice A Day Vital Signs Date Vital Result Comment 11/23/2018 1:05pm BP Systolic 128 mmHg BP Diastolic 70 mmHg Height 68 inches 5'8" Weight 281.00 lb BMI (Body Mass Index) 42.7 kg/m2 Heart Rate 76 /min Respiratory Rate 16 /min Results Test Date Facility Test Result H/L Range Note Urine Drug 11/23/2018 [id number] <pending> [facility] Ethyl Glucuronide <pending> Encounters Type Date Location Provider Dx Diagnosis Office Visit 11/23/2018 [facility] Tony Colmenares, E78.2 Mixed hyperlipidemia 1:30p N.P. E55.9 Vitamin D deficiency, unspecified F41.9 Anxiety disorder, unspecified R53.83 Other fatigue L20.9 Atopic dermatitis, unspecified J30.9 Allergic rhinitis, unspecified R73.01 Impaired fasting glucose E66.01 Morbid (severe) obesity due to excess calories F33.9 Major depressive disorder, recurrent, unspecified G47.00 Insomnia, unspecified F20.9 Schizophrenia, unspecified J44.9 Chronic obstructive pulmonary disease, unspecified J18.0 Bronchopneumonia, unspecified organism G24.01 Drug induced subacute dyskinesia Plan of Treatment Future Appointment(s):11/30/2018 10:00 am - Tony Colmenares N.P. at [facility]
--- OUTSIDE RECORDS SUMMARY | 2018-11-25 11:28 | XMS REPORT | Continuity of Care Document ---
:1985 Author Organization [facility] Support Name Relationship Address Phone SHANNAN ROY mother [address] [place] [address] SHANNAN ROY mother [address] [place] [address] Allergies and Intolerances Code Code System Allergy Type Reaction Severity Start End Date Status Substance Date 21580731 RXNorm Celexa Drug Hives Moderate Active allergy (disorder) Medications RxNorm Medication Dose Route Instructions Start Date End Date Status 285150 12 HR Bupropion 100 MG ORAL ONCE A DAY Active Hydrochloride 100 MG Extended Release Oral Tablet 324258 Diazepam 5 MG Oral 5 mg oral orally 2 times Active Tablet per day as needed. 63272 Risperidone 0.5 mg oral orally every day Active 458395 Risperidone 1 MG 1 MG ORAL AT BEDTIME Active Oral Tablet Ventolin HFA 2 inh inhalation inhaled 4 times Active Inhaler 90 per day as mcg/actuation needed. Problems Code Code System Problem Name Start Date End Date Status 40689311 SNOMED-CT Anxiety U Active Procedures No data in the system Results Laboratory Results Order: A1C Specimen Source: Body Site: Legend: (G,H)=High, (GG,HH,CH,#H)=Above High Threshold, (#,L)=Low, (##,CL,#L,LL) =Below Low Threshold, (C,CC,CA,#A,A)=Abnormal LOINC Test Result Flag Range Units Date 18168-4 1Hgb A1c Bld 4.9 4.8-6.0 % 11/13/2018 08:37 Performing Lab Footnotes:[facility] - [id number] - [address] [place] [address] MACHO GONZALEZ Order: BILIRUBIN DIRECT Specimen Source: Body Site: Legend: (G,H)=High , (GG,HH,CH,#H)=Above High Threshold, (#,L)=Low, (##,CL,#L,LL)=Below Low Threshold, (C,CC,CA,#A,A)=Abnormal LOINC Test Result Flag Range Units Date 1967-12 1Bilirub Direct SerPl-mCnc 0.2 0.0-0.3 mg/dL 11/13/2018 08:37 Performing Lab Footnotes:[facility] - [id number] - [address] [place] [address] MACHO Silva [id number] Order: CBC Specimen Source: Body Site: Legend: (G,H)=High, (GG,HH,CH,#H )=Above High Threshold, (#,L)=Low, (##,CL,#L,LL)=Below Low Threshold, (C,CC,CA,# A,A)=Abnormal LOINC Test Result Flag Range Units Date 6690-2 1WBC # Bld Auto 10.2 4.8-10.8 K/uL 11/13/2018 08:37 82451-7 1RBC # Bld 5.12 4.20-5.40 M/uL 11/13/2018 08:37 718-7 1Hgb Bld-mCnc 15.9 12.0-16.0 gm/dL 11/13/2018 08:37 4544-3 1Hct VFr Bld Auto 44.5 36.0-48.0 % 11/13/2018 08:37 787-2 1MCV RBC Auto 86.8 80.0-100.0 fL 11/13/2018 08:37 91377-5 1MCHC RBC-mCnc 35.8 30.0-36.5 % 11/13/2018 08:37 43731-0 1MCH RBC Qn 31.1 27.0-34.0 pg 11/13/2018 08:37 78906-4 1RDW RBC 12.5 11.0-15.0 % 11/13/2018 08:37 777-3 1Platelet # Bld Auto 261 130-450 K/uL 11/13/2018 08:37 40348-0 1PMV Bld Auto 6.3 6.0-12.0 fL 11/13/2018 08:37 Performing Lab Footnotes:[facility] - [id number] - [address] [place] [address] MACHO Silva [id number] Order: COMPREHENSIVE PANEL Specimen Source: Body Site: Legend: (G,H)= High, (GG,HH,CH,#H)=Above High Threshold, (#,L)=Low, (##,CL,#L,LL)=Below Low Threshold, (C,CC,CA,#A,A)=Abnormal LOINC Test Result Flag Range Units Date 2951-2 1Sodium SerPl-sCnc 140 136-145 mmol/L 11/13/2018 08:37 2823-3 1Potassium SerPl-sCnc 3.6 3.5-5.2 mmol/L 11/13/2018 08:37 5-0 1Chloride SerPl-sCnc 102 100-108 mmol/L 11/13/2018 08:37 8-9 1CO2 SerPl-sCnc 26 21-32 mmol/L 11/13/2018 08:37 5-7 1Glucose SerPl-mCnc 78 70-100 mg/dL 11/13/2018 08:37 3094-0 1BUN SerPl-mCnc 12 7-21 mg/dL 11/13/2018 08:37 2160-0 1Creat SerPl-mCnc 0.7 0.6-1.3 mg/dL 11/13/2018 08:37 Interpretive Tiffany: 1Normal Kidney Function or Mild Disease - GFR >OR=60 Chronic Kidney Disease - GFR 15-59 Renal Failure - GFR < 15 GFR not calculated on patients under 18 years of age. Calculated (estimated) GFR is based on the MDRD Study equation, which assumes a steady state for creatinine. Estimated GFR may not be appropriate for medication dosing. 33091-8 1Ca-I SerPl-mCnc 9.6 8.5-10.8 mg/dL 11/13/2018 08:37 71211-2 1GFR/BSA.pred SerPl-ArVRat >60 11/13/2018 08:37 98206-8 1Bilirub Bld-mCnc 0.7 0.0-1.2 mg/dL 11/13/2018 08:37 2885-2 1Prot SerPl-mCnc 7.2 6.4-8.2 gm/dL 11/13/2018 08:37 1751-7 1Albumin SerPl-mCnc 4.6 3.4-4.8 gm/dL 11/13/2018 08:37 6768-6 1ALP SerPl-cCnc 90 40-150 U/L 11/13/2018 08:37 1742-6 1ALT SerPl-cCnc 41 0-55 U/L 11/13/2018 08:37 1920-8 1AST SerPl-cCnc 22 5-37 U/L 11/13/2018 08:37 Performing Lab Footnotes:[facility] - [id number] - [address] [place] [address] MACHO GONZALEZ Order: LIPID PANEL Specimen Source: Body Site: Legend: (G,H)=High, (GG, HH,CH,#H)=Above High Threshold, (#,L)=Low, (##,CL,#L,LL)=Below Low Threshold, (C ,CC,CA,#A,A)=Abnormal LOINC Test Result Flag Range Units Date 2092-08 1Cholest SerPl-mCnc 253 H 120-200 mg/dL 11/13/2018 08:37 2571-8 1Trigl SerPl-mCnc 277 H 0-149 mg/dL 11/13/2018 08:37 5-9 1HDLc SerPl-mCnc 47 40-60 mg/dL 11/13/2018 08:37 9830-1 1Cholest/HDLc SerPl-mRto 5.4 H <=4.4 11/13/2018 08:37 Interpretive Tiffany: 1Cholesterol/HDL Ratio Interpretation Risk : 1/2 Avg Avg 2x Avg 3x Avg Male : 3.43 4.97 9.50 23.99 Female : 3.27 4.44 7.05 11.04 22088-6 1LDLc SerPl Direct Assay-mCnc 180 H 0-99 mg/dL 11/13/2018 08:37 14452-6 1VLDLc SerPl Calc-mCnc 55 11/13/2018 08:37 Performing Lab Footnotes:[facility] - [id number] - [address] [place] [address] MACHO GONZALEZ Order: TEST - SERUM Specimen Source: Body Site: Legend: (G,H) =High, (GG,HH,CH,#H)=Above High Threshold, (#,L)=Low, (##,CL,#L,LL)=Below Low Threshold, (C,CC,CA,#A,A)=Abnormal LOINC Test Result Flag Range Units Date 2118-01 1HCG Preg SerPl Ql NEGATIVE 11/13/2018 08:37 1Detection Level: >=10 mIU/mL Performing Lab Footnotes:[facility] - [id number] - [address] [place] [address] MACHO [id number] Social History Code Code System Social History Description Dates Observed Observation 980056875 SNOMED CT Current Smoking Unknown if ever Status smoked UNK AdministrativeGender Sex Assigned At Unknown Vital Signs No data in the system Goals Section No data in the system Health Concerns No data in the systemEncounter Diagnosis Date Code Code System Diagnosis Status F31.4 ICD10 BIPOLAR CURR DEPRESS SEV W/O PSYCH Active Advance Directives *RHIO - CONSENT IS YES Directive Type Effective Date Law Tutor Notes Supporting Document Name Address Phone No Directive Type 09/27/2016 6:12:49 Not Specified Not Specified Not Specified None No specified AM PT STATES NO ADVANCE DIRECTIVES Directive Type Effective Date Law Tutor Notes Supporting Document Name Address Phone No Directive Type 01/13/2018 3:45:00 Not Specified Not Specified Not Specified None No specified PM Family History Relationship: Father Health Problem Age At Onset Notes HTN (Hypertensive disorder) Functional Status No data in the system Immunizations No data in the system Medical Equipment No data in the system Mental Status No data in the system Assessment and Plan Assessments No data in the systemPlan Of Treatment No data in the systemPending Tests No data in the system Hospital Discharge Instructions No data in the system Reason for Visit No data in the system
[2018-11-25 11:54] VITALS: BP 107/79
--- NOTE | 2018-11-25 12:22 | UC ---
General HPI - HPI Summary HPI Summary: 11/06/18 seen [facility] and tx with augmentin plus albuterol. 11/08/18 seen [facility] and tx with prednisone plus albuterol and finish the augmentin. 11/23/18 saw pcp and dx with pneumonia. pcp tx with a few more days of augmentin. pcp did cxr which showed NAD(report reviewed). pt returns today for ongoing SOB, wheezing, pain in L back with deep breaths. not feeling better with prior tx's. + smoker. +hx asthma. denies travel hx, hx DVT and pain/swelling to legs. ill for about 3.5 weeks. - History of Current Complaint Chief Complaint: UCRespiratory Stated Complaint: CHEST CONGESTION Time Seen by Provider: 11/25/18 12:04 Hx Obtained From: Patient Hx Last Menstrual Period: 10/11/18 Pain Intensity: 0 - Allergy/Home Medications Allergies/Adverse Reactions: Allergies Allergy/AdvReac Type Severity Reaction Status Date / Time citalopram [From Celexa] Allergy Hives Verified 11/25/18 11:46 clonazepam [From Klonopin] AdvReac Insomnia Verified 11/25/18 11:46 lorazepam [From Ativan] AdvReac Insomnia Verified 11/25/18 11:46 ondansetron [From Zofran] AdvReac Insomnia Verified 11/25/18 11:46 sertraline AdvReac Insomnia Verified 11/25/18 11:46 Home Medications: Home Medications Benztropine TAB* [Cogentin TAB*] 1 mg PO BID PRN 11/25/18 [History Confirmed 11/08] DOXYcycline CAP(*) [DOXYcycline 100MG CAP(*)] 100 mg PO BID 11/25/18 [History Confirmed 11/25/18] PMH/Surg Hx/FS Hx/Imm Hx - Additional Past Medical History Additional PMH: "alpha deficiency" Cardiovascular History: Other - murmur Respiratory History: Asthma Psychological History: Anxiety, Depression Other History Of: Negative For: Anticoagulant Therapy - Surgical History Surgical History: None Surgery Procedure, Year, and Place: pt denies hx - Family History Known Family History: Positive: Hypertension Negative: Cardiac Disease - Social History Lives: With Family Alcohol Use: None Alcohol Amount: pt denies alcohol use Substance Use Type: None Substance Use Comment - Amount & Last Used: pt denies drug use Smoking Status (MU): Heavy Every Day Tobacco Smoker Type: Cigarettes Amount Used/How Often: 2-3 PPD Length of Time of Smoking/Using Tobacco: pt denies tobacco use Have You Smoked in the Last Year: No When Did the Patient Quit Smoking/Using Tobacco: pt denies tobacco use - Immunization History Most Recent Influenza Vaccination: unknown Most Recent Pneumonia Vaccination: unknown Vaccination Up to Date: Yes Review of Systems All Other Systems Reviewed And Are Negative: Yes Constitutional: Negative: Fever, Chills Respiratory: Positive: Shortness Of Breath, Cough Cardiovascular: Positive: Chest Pain - L back with deep breaths Musculoskeletal: Negative: Calf Tenderness, Edema Physical Exam Triage Information Reviewed: Yes Appearance: Well-Appearing Vital Signs: Initial Vital Signs Temp 98.1 F 11/25/18 11:47 Pulse 105 11/25/18 11:47 Resp 22 11/25/18 11:47 BP 107/79 11/25/18 11:47 Pulse Ox 97 11/25/18 11:47 Eyes: Positive: Conjunctiva Clear ENT: Positive: Pharynx normal, TMs normal. Negative: Nasal congestion, Nasal drainage Neck: Positive: Supple, Nontender, No Lymphadenopathy Respiratory: Positive: Lungs clear, Normal breath sounds, No respiratory distress. Negative: Crackles, Rhonchi, Wheezing Cardiovascular: Positive: No Murmur, Pulses Normal, Tachycardia - 104 Abdomen Description: Positive: Nontender Musculoskeletal: Positive: ROM Intact, No Edema, Other: - no calf tenderness Neurological: Positive: Alert Psychological: Positive: Age Appropriate Behavior Skin Exam: Normal Course/Dx - Course Course Of Treatment: Report called to Waldemar Power NP. I advised of pt's 4th visit, neg cxr 11/23/18 and non resolving L pleuritic cp and sob despite tx with augmentin, albuterol and prednisone. s/s's x 3.5 weeks. advised need to r/ o PE. also advised pt HR 104 at rest. - Differential Dx - Multi-Symptom Differential Diagnoses: Other - no infiltrate on 11/23/18 cxr report. not responding to tx's. L posterior pleuritic cp. requires additonal evaluation and tx. this is 4th out pt evaluation. will need to r/o PE. - Diagnoses Provider Diagnosis: Pleuritic chest pain, Dyspnea Discharge - Sign-Out/Discharge Documenting (check all that apply): Patient Departure All imaging exams completed and their final reports reviewed: No - Discharge Plan Condition: Stable Disposition: TRANS HIGHER LVL OF CARE FAC Referrals: Best Collado PA [Primary Care Provider] - Additional Instructions: LEAVE HERE AND GO DIRECTLY TO THE [facility] ER DISCUSSED. - Billing Disposition and Condition Condition: STABLE Disposition: Trans Higher Lvl of Care Fac
== END 2018-11-25 12:27 | disposition short-term general hospital (02) ==
LOC: UCCORT 11:16
DX: R09.89 Other specified symptoms and signs involving the circulatory and respiratory systems (principal); R06.00 Dyspnea, unspecified; E88.01 Alpha-1-antitrypsin deficiency; R01.1 Cardiac murmur, unspecified; F41.9 Anxiety disorder, unspecified; F32.9 Major depressive disorder, single episode, unspecified; F17.210 Nicotine dependence, cigarettes, uncomplicated; Z88.8 Allergy status to other drugs, medicaments and biological substances
CPT/HCPCS: 99212; G0463

== ENCOUNTER 2018-11-27 21:31 | Emergency (ER) | payer MEDICAID ==
--- NOTE | 2018-11-27 22:33 | ED ---
GI/ HPI - HPI Summary HPI Summary: 33 year old female presents with abdominal pain for the past couple days. She is located in her pelvic region. She admits to some clear vaginal discharge. She denies any burning or itching. She admits to nausea and dizziness. The nausea and dizziness has resolved. She denies any vomiting. She currently has mild abdominal pain suprapubic. States ibuprofen makes it better. She states that her period was shorter than normal a couple weeks ago and she is concerned that she is . She had taken at home test 2 weeks ago that was negative. She is here for test. She denies any urinary symptoms. No fevers. No constipation or diarrhea. Has never had these symptoms before. - History of Current Complaint Chief Complaint: EDGeneral Time Seen by Provider: 11/27/18 22:15 Stated Complaint: LIGHT HEADED, NAUSEOUS PER PT Hx Last Menstrual Period: 10/11/18 Pain Intensity: 2 - Additional Pertinent History Primary Care Physician: [id number] - Allergy/Home Medications Allergies/Adverse Reactions: Allergies Allergy/AdvReac Type Severity Reaction Status Date / Time citalopram [From Celexa] Allergy Hives Verified 11/25/18 11:46 clonazepam [From Klonopin] AdvReac Insomnia Verified 11/25/18 11:46 lorazepam [From Ativan] AdvReac Insomnia Verified 11/25/18 11:46 ondansetron [From Zofran] AdvReac Insomnia Verified 11/25/18 11:46 sertraline AdvReac Insomnia Verified 11/25/18 11:46 PMH/Surg Hx/FS Hx/Imm Hx Endocrine/Hematology History: Reports: Other Endocrine/Hematological Disorders - protein deficiency - Alpha 1 Denies: Hx Anticoagulant Therapy, Hx Diabetes, Hx Thyroid Disease Cardiovascular History: Denies: Hx Hypertension Respiratory History: Reports: Hx Asthma - prescribed albuterol inhaler in personal belongings Denies: Hx Chronic Obstructive Pulmonary Disease (COPD) GI History: Denies: Hx Ulcer Sensory History: Denies: Hx Contacts or Glasses, Hx Hearing Aid Opthamlomology History: Denies: Hx Contacts or Glasses Psychiatric History: Reports: Hx Anxiety, Hx Eating Disorder - when depressed - not eat or drink, Hx Depression, Hx Panic Disorder, Hx Inpatient Treatment - pt relates "a long time ago" at [facility], Hx of Violent Episodes Against Others Denies: Hx Bipolar Disorder - Surgical History Surgery Procedure, Year, and Place: pt denies hx Infectious Disease History: No Infectious Disease History: Reports: Hx of Known/Suspected MRSA - in urine Denies: Hx Clostridium Difficile, Hx Hepatitis, Hx Human Immunodeficiency Virus (HIV), Hx Shingles, Hx Tuberculosis, Hx Known/Suspected VRE, Hx Known/ Suspected VRSA, History Other Infectious Disease, Traveled Outside the [place] in Last 30 Days - Family History Known Family History: Positive: Hypertension Negative: Cardiac Disease - Social History Alcohol Use: None Alcohol Amount: pt denies alcohol use Hx Substance Use: No Substance Use Type: Reports: None Substance Use Comment - Amount & Last Used: pt denies drug use Hx Tobacco Use: Yes Smoking Status (MU): Heavy Every Day Tobacco Smoker Type: Cigarettes Amount Used/How Often: 2-3 PPD Length of Time of Smoking/Using Tobacco: pt denies tobacco use Have You Smoked in the Last Year: No Review of Systems Negative: Fever Negative: Chest Pain Negative: Shortness Of Breath Positive: Abdominal Pain, Nausea. Negative: Vomiting, Diarrhea Neurological: Other - dizziness All Other Systems Reviewed And Are Negative: Yes Physical Exam Triage Information Reviewed: Yes Vital Signs On Initial Exam: Initial Vitals Temp Pulse Resp BP Pulse Ox 97.0 F 110 20 156/117 97 11/27/18 21:34 11/27/18 21:34 11/27/18 21:34 11/27/18 21:34 11/27/18 21:34 Vital Signs Reviewed: Yes Appearance: Positive: Well-Appearing Skin: Positive: Warm, Dry Head/Face: Positive: Normal Head/Face Inspection Eyes: Positive: Normal, Conjunctiva Clear ENT: Positive: Pharynx normal Respiratory/Lung Sounds: Positive: Clear to Auscultation, Breath Sounds Present Cardiovascular: Positive: Normal, RRR Abdomen Description: Positive: Soft, Other: - mild suprapubic tenderness Bowel Sounds: Positive: Present Musculoskeletal: Positive: Normal Neurological: Positive: Sensory/Motor Intact, Alert, Oriented to Person Place, Time, CN Intact II-III Psychiatric: Positive: Normal Diagnostics - Vital Signs Vital Signs Temp Pulse Resp BP Pulse Ox 11/27/18 22:20 106 113/82 99 11/27/18 22:19 114 99 11/27/18 21:34 97.0 F 110 20 156/117 97 - Laboratory Lab Statement: Any lab studies that have been ordered have been reviewed, and results considered in the medical decision making process. Re-Evaluation - Re-Evaluation First Eval Re-Evaluation Time: 23:15 Comment: offered to go a pelvic again and patient declined GIGU Course/Dx - Course Course Of Treatment: 33 year old female presents with abdominal pain for the past couple days. She is located in her pelvic region. She admits to some clear vaginal discharge. She denies any burning or itching. She admits to nausea and dizziness. The nausea and dizziness has resolved. She denies any vomiting. She currently has mild abdominal pain suprapubic. States ibuprofen makes it better. She states that her period was shorter than normal a couple weeks ago and she is concerned that she is . She had taken at home test 2 weeks ago that was negative. She is here for test. She denies any urinary symptoms. No fevers. No constipation or diarrhea. Has never had these symptoms before. On exam tenderness suprapubic. Urine negative. HCG negative. Wanted to do pelvic to checked for PID or other infection and patient declined. as pain is centered do not suspect ovarian cyst so did not get ultrasound. told to follow up with primary or obstetrics gyn. patient understand and agrees with plan. - Diagnoses Differential Diagnoses - Female: , STD, Urinary Tract Infection Provider Diagnoses: Abdominal pain Discharge - Sign-Out/Discharge Documenting (check all that apply): Patient Departure Patient Received Moderate/Deep Sedation with Procedure: No - Discharge Plan Condition: Good Disposition: HOME Patient Education Materials: Pelvic Pain in Women (ED) Referrals: Tony Colmenares NP [Primary Care Provider] - Additional Instructions: follow up with primary or obstetrics gyn take tyenlol or ibuprofen as needed for pain every 6 hours Return to ED if develop any new or worsening symptoms - Billing Disposition and Condition Condition: GOOD Disposition: Home
[2018-11-27 23:23] LABS: Urine Appearance Cloudy; Urine Bilirubin Negative (Negative); Urine Blood Negative (Negative); Urine Color Amber; Urine Glucose Negative (Negative); Urine Ketones Negative (Negative); Urine Nitrite Negative (Negative); Urine Protein Negative (Negative); Urine Specific Gravity 1.025 (1.010-1.030); Urine Urobilinogen Negative (Negative)
[2018-11-27 23:30] VITALS: BP 106/65
== END 2018-11-27 23:30 | disposition home or self-care (01) ==
LOC: ED 21:31
DX: R10.9 Unspecified abdominal pain (principal); F17.210 Nicotine dependence, cigarettes, uncomplicated
CPT/HCPCS: 36415; 81003; 84702; 99282

== ENCOUNTER 2018-12-12 16:35 | Emergency (ER) | payer MEDICAID ==
--- OUTSIDE RECORDS SUMMARY | 2018-12-12 16:40 | XMS REPORT | Continuity of Care Document ---
:1985 External Reference #:[id number] Author Name Tony Colmenares N.P. Address [address] [facility] [facility] [place] [address] Care Team Providers Name Role Phone Ailyn Arana M.D. 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 Payers Date Identification Numbers Payment Provider Subscriber Policy Number: [id number] [employer] Yamila Roblero PayID: [id number] [address] [place] [address] Family History Date Family Member(s) Observation Comments [...] cigarettes/day) Recreational Drug Use Denies Drug Use Smoking Status Reviewed: 11/30/18 Heavy tobacco smoker (more than 10 cigarettes/day) Allergies, Adverse Reactions, Alerts Active Allergies Reaction Severity Comments Date Zofran 11/23/2018 Celexa 11/23/2018 Sertraline 11/23/2018 Ativan 11/23/2018 Medications Active Medications SIG Qnty Indications Ordering Provider Date Amantadine HCL One Cap PO bid 60caps G24.01 Ailyn Arana, 11/30/2018 100mg M.D. Capsules Vitamin D-3 1 by mouth every 90caps E55.9 Ailyn Arana, 11/30/2018 1000Unit day M.D. Capsules Tricor 1 by mouth every 30tabs E78.2 Ailyn Arana, 11/30/2018 48mg Tablets day M.D. Atorvastatin Calcium take one tablet 30tabs E78.2 Ailyn AranaAmaury, 2018 by mouth at M.D. 20mg Tablets bedtime Depo-Provera Uad 1ml Ailyn AranaAmaury, 11/23/2018 150mg/ml M.D. Suspension Hydroxyzine Pamoate Take One Capsule F41.9 Unknown By Mouth Three 50mg Capsules Times A Day as Needed Clomipramine HCL Take Three F20.9 Unknown 50mg Capsules By Mouth Capsules Every Day F42.9 Paliperidone ER Take One Tablet By F20.9 Unknown 3mg Tablets Mouth Every Day ER 24HR Proair HFA Inhale One To Two J44.9 Unknown 108(90Base) Puffs By Mouth mcg/Act Aerosol Every 6 Hours as Needed For Cough Doxycycline Hyclate take one capsule by 30caps J18.0 Ailyn AranaAmaury, 100mg mouth twice a day M.D. Capsules History Medications Benztropine Mesylate 1 tab by mouth 60tabs G24.01 Ailyn AranaAmaury, 2018 - twice a day M.D. 11/30/2018 1mg Tablets Medications Administered in Office Medication SIG Qnty Indications Ordering Provider Date Depo Provera Injection Tony Colmenares N.Deanna. 11/30/2018 Injection Vital Signs Date Vital Result Comment 11/30/2018 10:03am BP Systolic 118 mmHg BP Diastolic 72 mmHg Height 68 inches 5'8" Weight 281.00 lb BMI (Body Mass Index) 42.7 kg/m2 Heart Rate 93 /min Respiratory Rate 16 /min 11/23/2018 1:05pm BP Systolic 128 mmHg BP Diastolic 70 mmHg Height 68 inches 5'8" Weight 281.00 lb BMI (Body Mass Index) 42.7 kg/m2 Heart Rate 76 /min Respiratory Rate 16 /min Results Test Date Facility Test Result H/L Range Note CBC With Diff 11/24/2018 [facility] White Blood Count 11.2 K/uL High 3.1- 10.7 1 Red Blood Count 5.40 M/uL N 3.90-5.40 Hemoglobin 15.7 gm/dL N 11.6-15.8 Hematocrit 48.3 % High 36.0-46.1 Mean Cell Volume 89.4 fl N 80.9-99.0 Mean Corpuscular HGB 29.1 pg N 25.9-32.7 Mean Corpuscular HGB Conc 32.5 g/dL N 30.8-34.3 Platelet Count 241 K/uL N 155-360 Red Cell Distri Width SD 43.8 fl N 36-47 Red Cell Distri Width %CV 13.4 % N 11.7-14.4 Mean Platelet Volume 8.8 fl Low 8.9-12.4 Neut% 64.4 % N 40.4-72.8 Lymph % 26.0 % N 20.0-42.0 [place] % 6.7 % N 4.3-13.2 Eo% 1.3 % N 0.0-6.6 Bas% 0.4 % N 0.0-1.1 Immature Grans 1.2 % N 0.0-5.0 NRBC % 0.0 /100WBC < 10/ 100 WBC Neut# 7.21 K/uL High 1.8-7.0 Lymph # 2.91 K/uL N 1.0-4.0 [place] # 0.75 K/uL N 0.3-0.9 Eos # 0.15 K/uL N 0.0-0.5 Baso # 0.05 K/uL N 0.0-0.1 Immature Grans Absolute 0.14 K/uL NRBC # 0.00 K/uL CMP 11/24/2018 [facility] Glucose 82 mg/dL N 74-106 BUN 22 mg/dL High 7-18 Creatinine 0.9 mg/dL 0.6-1.3 Glom Filtration Rate, Estimate >60 mL/min >60 If >60 mL/min >60 2 BUN/Creat 24.4 ratio Sodium 138 mmol/L N 136-145 Potassium 3.6 mmol/L N 3.5-5.1 Chloride 101 mmol/L N 98-107 Carbon Dioxide 31 mmol/L N 21-32 Anion Gap 6 mEq/L Low 8-16 Calcium 9.8 mg/dL N 8.5-10.1 Hemoglobin A1c 11/24/2018 [facility] Glycohemoglobin (A1c) 5.4 % N 4.2-6.3 3 eAG 108 mg/dL Lipid 11/24/2018 [facility] Cholesterol 263 mg/dL High <200 4 Triglycerides 223 mg/dL High <150 5 HDL Cholesterol 57 mg/dL >40 6 LDL-Cholesterol 161 mg/dL < 100 7 Hepatic Function 11/24/2018 [facility] Total Protein 8.0 g/dL N 6.4-8.2 Albumin 4.4 g/dL N 3.4-5.0 Globulin 3.6 g/dL N 1.9-4.3 Alb/Glob 1.2 ratio Bilirubin,Total 0.4 mg/dL N 0.2-1.0 Bilirubin,Direct < 0.1 mg/dL N 0.0-0.2 Bilirubin,Indirect 0.3 mg/dL N 0.0-0.9 Sgot/Ast 17 U/L N 15-37 SGPT/Alt 41 U/L N 12-78 Alkaline Phosphatase 100 U/L N 45-117 Laboratory test finding 11/24/2018 [facility] Free T4 0.93 ng/dL N 0.76- 1.46 Thyroid Stim Hormone 3.09 uIU/mL N 0.30-4.20 Vitamin D,25-Hydroxy 13.4 ng/mL Low 30.0-100.0 8 Ethyl Glucuronide 11/23/2018 [facility] Ethyl Glucuronide Negative ng/mL N 500 9 PDF SEE IMAGE Laboratory test finding 11/23/2018 [facility] Tramadol Negative ng/mL N 5 10 Gabapentin Negative ng/mL N 100 11 Paliperidone Positive Consist <SEE NOTE> ng/mL N 1 12 Urine DRG SCR 11/23/2018 [facility] Amphetamine NEGATIVE N 1000 (12PNL-PM) Barbiturate NEGATIVE N 200 Benzodiazepine NEGATIVE N 200 Buprenorphine NEGATIVE N 15 Cannabinoid NEGATIVE N 50 Cocaine NEGATIVE N 300 Methadone NEGATIVE N 300 Opiate NEGATIVE N 300 Oxycodone NEGATIVE N 300 Phencyclidine NEGATIVE N 25 13 Cocaine Panel By 11/23/2018 [facility] Benzoylecgonine Negative ng/mL N 50 14 LC/MS/MS (Cocaine) Amphetamine Panel 11/23/2018 [facility] Amphetamine Negative ng/ mL N 50 By LC/MS/MS Methamphetamine Negative ng/mL N 50 Mdma (Ecstasy) Negative ng/mL N 50 Mda Negative ng/ml N 50 Mdea Negative ng/mL N 50 15 Specimen Validity 11/23/2018 [facility] Creatinine, Urine 69 mg/ dL N >20 Panel Color YELLOW N Yellow pH 6.4 N 5.0-8.0 Specific [place] 1.022 N 1.001-1.035 16 Opiates Panel By 11/23/2018 [facility] [place] (Heroin Negative ng/ mL N 5 LC/MS/MS Metabolite) Codeine Negative ng/mL N 50 Hydrocodone Negative ng/mL N 50 Hydromorphone Negative ng/mL N 50 Morphine Negative ng/mL N 50 Norhydrocodone Negative ng/mL N 50 Noroxycodone Negative ng/mL N 50 Noroxymorphone Negative ng/mL N 50 Oxycodone Negative ng/mL N 50 Oxymorphone Negative ng/mL N 50 17 Methadone Panel By 11/23/2018 [facility] Eddp Negative ng/mL N 10 LC/MS/MS Methadone Negative ng/mL N 10 18 Buprenorphine Panel By 11/23/2018 [facility] Buprenorphine Negative ng/mL N 5 LC/MS/MS Naloxone Negative ng/mL N 10 Norbuprenorphine Negative ng/mL N 5 19 Benzodiazepines 11/23/2018 [facility] 2-Hydroxyethylflurazepam Negative N 10 Panel By LC/MS/MS ng/mL 7-Aminoclonazepam Negative ng/mL N 10 Alprazolam Negative ng/mL N 10 Chlordiazepoxide Negative ng/mL N 10 Clonazepam Negative ng/mL N 10 Desalkylflurazepam Negative ng/mL N 10 Diazepam Negative ng/mL N 10 Lorazepam Negative ng/mL N 10 Midazolam Negative ng/ml N 10 Nordiazepam Negative ng/mL N 10 Alpha-hydroxyalprazolam Negative ng/mL N 10 Alpha-Hydroxymidazolam Negative ng/mL N 10 Alpha-Hydroxytriazolam Negative ng/mL N 10 Oxazepam Negative ng/mL N 10 Prazepam Negative ng/mL N 10 Temazepam Negative ng/mL N 10 20 Barbiturates Panel By 11/23/2018 [facility] Butalbital Negative ng/mL N 100 LC/MS/MS Pentobarbital Negative ng/mL N 100 Phenobarbital Negative ng/mL N 100 Secobarbital Negative ng/mL N 100 21 Antidepressants Panel 11/23/2018 [facility] Amitriptyline Negative ng/mL N 20 By LC/MS/MS Clomipramine Positive Consist <SEE NOTE> ng/mL N 20 22 Desipramine Negative ng/mL N 20 Doxepin Negative ng/mL N 20 Fluoxetine Negative ng/mL N 20 Imipramine Negative ng/mL N 20 Norclomipramine Positive Consist <SEE NOTE> ng/mL N 20 23 Nordoxepin Negative ng/mL N 20 Nortriptyline Negative ng/mL N 20 Sertraline Negative ng/mL N 20 Trimipramine Negative ng/mL N 20 24 Urine Drug 11/23/2018 [facility] [id number] Negative ng/mL N 5 25 [facility] Ethyl Glucuronide <pending> 1 E78.2 2 Note: Persistent reduction for 3 months or more in an eGFR <60 mL/min/1.73 m2 defines CKD. Patients with eGFR values >/=60 mL/min/1.73 m2 may also have CKD if evidence of persistent proteinuria is present. The original MDRD equation for estimated GFR is not valid for patients less than 18 years of age. Additional information may be found at www.kdoqi.org. 3 Elevated levels of HbA1c suggest the need for more aggressive treatment of glycemia. The [place] [employer] Association recommends that a primary goal of therapy should be a HbA1c of <7% and that physicians should re-evaluate the treatment regimen in patients with HbA1c values consistently >8%. 4 Reference Guidelines*: Desirable: ........... < 200 mg/dL Borderline High: ..... 200-239 mg/dL High: ................ >=240 mg/dL * The National Cholesterol Education Program (NCEP) 5 Reference Guidelines*: Normal: ............. < 150 mg/dL Borderline High: .... 150-199 mg/dL High: ............... 200-499 mg/dL Very High: .......... > 500 mg/dL * Source: National Cholesterol Education Program (NCEP) 6 Reference Guidelines*: Low HDL: ..... < 40 mg/dL Normal: ..... 40-60 mg/dL Desirable: ... > 60 mg/dL *The National Cholesterol Education Program(NCEP) 7 Reference Guidelines*: Optimal:........... <100 mg/dL Near Optimal....... 100-129 mg/dL Borderline High.... 130-159 mg/dL High............... 160-189 mg/dL Very High.......... >=190 mg/dL * Source: National Cholesterol Education Program (NCEP) 8 Vitamin D deficiency has been defined by the [place] of [employer] and an Endocrine Society practice guideline as a level of serum 25-OH vitamin D less than 20 ng/mL (1,2). The Endocrine Society went on to further define vitamin D insufficiency as a level between 21 and 29 ng/mL (2). 1. IOM ([place] of [employer]). 2010. Dietary reference intakes for calcium and D. [place]: The National Academies Press. 2. Hayes MF, Melanie TINOCO, Mariano CLARK, et al. Evaluation, treatment, and prevention of vitamin D deficiency: an Endocrine Society clinical practice guideline. JCEM. 2010; 96(7):1911-30. Performed at: RN - [facility] [address] [id number] [employer] [place]: Tawnya Romano MD, Phone: [phone] Prescribed Medications: Clomipramine (Clomipramine), Paliperidone ( Paliperidone), HYDROXYZINE, ALBUTEROL 10 Prescribed Medications: Clomipramine (Clomipramine), Paliperidone ( Paliperidone), HYDROXYZINE, ALBUTEROL 11 Prescribed Medications: Clomipramine (Clomipramine), Paliperidone ( Paliperidone), HYDROXYZINE, ALBUTEROL 12 Positive Consistent Paliperidone is a metabolite of Risperidone. Paliperidone (Invega) is also available as a prescription drug. Prescribed Medications: Clomipramine (Clomipramine), Paliperidone ( Paliperidone), HYDROXYZINE, ALBUTEROL 13 Prescribed Medications: Clomipramine (Clomipramine), Paliperidone ( Paliperidone), HYDROXYZINE, ALBUTEROL 14 Prescribed Medications: Clomipramine (Clomipramine), Paliperidone ( Paliperidone), HYDROXYZINE, ALBUTEROL 15 Prescribed Medications: Clomipramine (Clomipramine), Paliperidone ( Paliperidone), HYDROXYZINE, ALBUTEROL 16 Prescribed Medications: Clomipramine (Clomipramine), Paliperidone ( Paliperidone), HYDROXYZINE, ALBUTEROL 17 Prescribed Medications: Clomipramine (Clomipramine), Paliperidone ( Paliperidone), HYDROXYZINE, ALBUTEROL 18 Prescribed Medications: Clomipramine (Clomipramine), Paliperidone ( Paliperidone), HYDROXYZINE, ALBUTEROL 19 Prescribed Medications: Clomipramine (Clomipramine), Paliperidone ( Paliperidone), HYDROXYZINE, ALBUTEROL 20 Prescribed Medications: Clomipramine (Clomipramine), Paliperidone ( Paliperidone), HYDROXYZINE, ALBUTEROL 21 Prescribed Medications: Clomipramine (Clomipramine), Paliperidone ( Paliperidone), HYDROXYZINE, ALBUTEROL 22 Positive Consistent 23 Positive Consistent 24 Prescribed Medications: Clomipramine (Clomipramine), Paliperidone ( Paliperidone), HYDROXYZINE, ALBUTEROL 25 Prescribed Medications: Clomipramine (Clomipramine), Paliperidone ( Paliperidone), HYDROXYZINE, ALBUTEROL Encounters Type Date Location Provider Dx Diagnosis Office Visit 11/30/2018 [facility] Tony Colmenares, E55.9 Vitamin D 10:00a N.P. deficiency, unspecified F41.9 Anxiety disorder, unspecified R53.83 Other fatigue L20.9 Atopic dermatitis, unspecified J30.9 Allergic rhinitis, unspecified R73.01 Impaired fasting glucose E66.01 Morbid (severe) obesity due to excess calories F33.9 Major depressive disorder, recurrent, unspecified G47.00 Insomnia, unspecified F20.9 Schizophrenia, unspecified J44.9 Chronic obstructive pulmonary disease, unspecified J18.0 Bronchopneumonia, unspecified organism G24.01 Drug induced subacute dyskinesia F17.210 Nicotine dependence, cigarettes, uncomplicated E78.2 Mixed hyperlipidemia Z30.42 Encounter for surveillance of injectable contraceptive Office Visit 11/23/2018 1:30p [facility] Tony Colmenares E78.2 Mixed hyperlipidemia N.P. E55.9 Vitamin D deficiency, unspecified F41.9 [...] induced subacute dyskinesia Plan of Treatment Future Appointment(s):03/01/2019 10:00 am - Tony Colmenares N.P. at [facility]
--- OUTSIDE RECORDS SUMMARY | 2018-12-12 16:40 | XMS REPORT | Continuity of Care Document ---
:1985 External Reference #:[id number] Author Name Tony Colmenares N.P. Address [address] [place] [address] Care Team Providers Name Role Phone Ailyn Arana M.D. 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 Payers Date Identification Numbers Payment Provider Subscriber Policy Number: [id number] [employer] Yamila Roblero PayID: [id number] [address] [place] [address] Family History Date Family Member(s) Observation Comments [...] Use Denies Drug Use Smoking Status Reviewed: 12/11/18 Heavy tobacco smoker (more than 10 cigarettes/day) Allergies, Adverse Reactions, Alerts Active Allergies Reaction Severity Comments Date Zofran 11/23/2018 Celexa 11/23/2018 Sertraline 11/23/2018 Ativan 11/23/2018 Medications Active Medications SIG Qnty Indications Ordering Provider Date Azithromycin 1 tab by mouth 10tabs J18.0 Ailyn Arana, 12/07/2018 500mg every day x 10 M.D. Tablets days Amantadine HCL One Cap PO bid 60caps G24.01 Ailyn Arana, 11/30/2018 100mg M.D. Capsules Vitamin D-3 1 by mouth every 90caps E55.9 Ailyn Arana, 11/30/2018 1000Unit day M.D. Capsules Tricor 1 by mouth every 30tabs E78.2 [facility] 11/[facility]2018 48mg Tablets day M.D. Atorvastatin Calcium take one tablet 30tabs E78.2 [facility]n terrellAmaury, 2018 by mouth at M.D. 20mg Tablets bedtime Depo-Provera Uad 1ml [facility]ilyn terrellAmaury, 11/23/2018 150mg/ml M.D. Suspension Hydroxyzine Pamoate Take One Capsule F41.9 Unknown By Mouth Three 50mg Capsules Times A Day as Needed Clomipramine HCL Take Three F20.9 Unknown 50mg Capsules By Mouth Capsules Every Day F42.9 Paliperidone ER Take One Tablet By F20.9 Unknown 3mg Tablets Mouth Every Day ER 24HR Proair HFA inhale one to two 8.500gm J44.9 [facility], 108(90Base) puffs by mouth M.DAmaury mcg/Act Aerosol every 6 hours as needed for cough History Medications Benztropine Mesylate 1 tab by mouth 60tabs G24.01 [facility] terrellderrick 11/23/2018 - twice a day M., M.D. 11/30/2018 1mg Tablets Doxycycline Hyclate take one capsule 30caps [facility].0 [facility] a M., M.D. 12/06/2018 100mg Capsules day Medications Administered in Office Medication SIG Qnty Indications Ordering Provider Date Depo Provera Injection Tony Colmenares N.P. 11/30/2018 Injection Vital Signs Date Vital Result Comment 12/11/2018 3:35pm BP Systolic 118 mmHg BP Diastolic 64 mmHg Height 68 inches 5'8" Weight 276.00 lb BMI (Body Mass Index) 42.0 kg/m2 Heart Rate 124 /min Respiratory Rate 18 /min 12/07/2018 10:05am BP Systolic 126 mmHg BP Diastolic 70 mmHg Height 68 inches 5'8" Weight 278.00 lb BMI (Body Mass Index) 42.3 kg/m2 Heart Rate 79 /min Body Temperature 97.9 F Respiratory Rate 18 /min 11/30/2018 10:03am BP Systolic 118 mmHg BP [...] Date Facility Test Result H/L Range Note Laboratory test finding 11/24/2018 [facility] Free T4 0.93 ng/dL N 0.76- 1.46 1 Thyroid Stim Hormone 3.09 uIU/mL N 0.30-4.20 Vitamin D,25-Hydroxy 13.4 ng/mL Low 30.0-100.0 2 Hepatic Function 11/24/2018 [facility] Total Protein 8.0 g/dL N 6.4-8.2 Albumin 4.4 g/dL N 3.4-5.0 Globulin 3.6 g/dL N 1.9-4.3 Alb/Glob 1.2 ratio Bilirubin,Total 0.4 mg/dL N 0.2-1.0 Bilirubin,Direct < 0.1 mg/dL N 0.0-0.2 Bilirubin,Indirect 0.3 mg/dL N 0.0-0.9 Sgot/Ast 17 U/L N 15-37 SGPT/Alt 41 U/L N 12-78 Alkaline Phosphatase 100 U/L N 45-117 CBC With Diff 11/24/2018 [facility] White Blood Count 11.2 K/uL High 3.1- 10.7 Red Blood Count 5.40 M/uL N 3.90-5.40 [...] 40.4-72.8 Lymph % 26.0 % N 20.0-42.0 [place] % 6.7 % N 4.3-13.2 Eo% 1.3 % N 0.0-6.6 Bas% 0.4 % N 0.0-1.1 Immature Grans 1.2 % N 0.0-5.0 NRBC % 0.0 /100WBC < 10/ 100 WBC Neut# 7.21 K/uL High 1.8-7.0 Lymph # 2.91 K/uL N 1.0-4.0 [place] # 0.75 K/uL N 0.3-0.9 Eos # 0.15 K/uL N 0.0-0.5 Baso # 0.05 K/uL N 0.0-0.1 Immature Grans Absolute 0.14 K/uL NRBC # 0.00 K/uL CMP 11/24/2018 [facility] Glucose 82 mg/dL N 74-106 BUN 22 mg/dL High 7-18 Creatinine 0.9 mg/dL 0.6-1.3 Glom Filtration Rate, Estimate >60 mL/min >60 If >60 mL/min >60 3 BUN/Creat 24.4 ratio Sodium 138 mmol/L N 136-145 Potassium 3.6 mmol/L N 3.5-5.1 Chloride 101 mmol/L N 98-107 Carbon Dioxide 31 mmol/L N 21-32 Anion Gap 6 mEq/L Low 8-16 Calcium 9.8 mg/dL N 8.5-10.1 Lipid 11/24/2018 [facility] Cholesterol 263 mg/dL High <200 4 Triglycerides 223 mg/dL High <150 5 HDL Cholesterol 57 mg/dL >40 6 LDL-Cholesterol 161 mg/dL < 100 7 Hemoglobin A1c 11/24/2018 [facility] Glycohemoglobin (A1c) 5.4 % N 4.2-6.3 8 eAG 108 mg/dL Urine Drug [facility] 11/23/2018 [facility] NSY-Tnoop-6-Cooh Negative N 5 9, 10 ng/mL Antidepressants 11/23/2018 [facility] Amitriptyline Negative N 20 Panel By LC/MS/MS ng/mL Clomipramine Positive Consist <SEE NOTE> ng/mL N 20 11 Desipramine Negative ng/mL N 20 Doxepin Negative ng/mL N 20 Fluoxetine Negative ng/mL N 20 Imipramine Negative ng/mL N 20 Norclomipramine Positive Consist <SEE NOTE> ng/mL N 20 12 Nordoxepin Negative ng/mL N 20 Nortriptyline Negative ng/mL N 20 Sertraline Negative ng/mL N 20 Trimipramine Negative ng/mL N 20 13 Barbiturates Panel By 11/23/2018 [facility] Butalbital Negative ng/mL N 100 LC/MS/MS Pentobarbital Negative ng/mL N 100 Phenobarbital Negative ng/mL N 100 Secobarbital Negative ng/mL N 100 14 Benzodiazepines 11/23/2018 [facility] 2-Hydroxyethylflurazepam Negative N 10 Panel [...] N 10 Temazepam Negative ng/mL N 10 15 Buprenorphine Panel By 11/23/2018 [facility] Buprenorphine Negative ng/mL N 5 LC/MS/MS Naloxone Negative ng/mL N 10 Norbuprenorphine Negative ng/mL N 5 16 Methadone Panel By 11/23/2018 [facility] Eddp Negative ng/mL N 10 LC/MS/MS Methadone Negative ng/mL N 10 17 Opiates Panel By 11/23/2018 [facility] [place] (Heroin Negative ng/ mL N 5 LC/MS/MS Metabolite) Codeine Negative ng/mL N 50 Hydrocodone Negative ng/mL N 50 Hydromorphone Negative ng/mL N 50 Morphine Negative ng/mL N 50 Norhydrocodone Negative ng/mL N 50 Noroxycodone Negative ng/mL N 50 Noroxymorphone Negative ng/mL N 50 Oxycodone Negative ng/mL N 50 Oxymorphone Negative ng/mL N 50 18 Specimen Validity 11/23/2018 [facility] Creatinine, Urine 69 mg/ dL N >20 Panel Color YELLOW N Yellow pH 6.4 N 5.0-8.0 Specific [place] 1.022 N 1.001-1.035 19 Amphetamine Panel By 11/23/2018 [facility] Amphetamine Negative ng/mL N 50 LC/MS/MS Methamphetamine Negative ng/mL N 50 Mdma (Ecstasy) Negative ng/mL N 50 Mda Negative ng/ml N 50 Mdea Negative ng/mL N 50 20 Cocaine Panel 11/23/2018 [facility] Benzoylecgonine Negative ng/ mL N 50 21 By LC/MS/MS (Cocaine) Urine DRG SCR 11/23/2018 [facility] Amphetamine NEGATIVE N 1000 (12PNL-PM) Barbiturate NEGATIVE N 200 Benzodiazepine NEGATIVE N 200 Buprenorphine NEGATIVE N 15 Cannabinoid NEGATIVE N 50 Cocaine NEGATIVE N 300 Methadone NEGATIVE N 300 Opiate NEGATIVE N 300 Oxycodone NEGATIVE N 300 Phencyclidine NEGATIVE N 25 22 Laboratory test finding 11/23/2018 [facility] Tramadol Negative ng/mL N 5 23 Gabapentin Negative ng/mL N 100 24 Paliperidone Positive Consist <SEE NOTE> ng/mL N 1 25 Ethyl Glucuronide 11/23/2018 [facility] Ethyl Glucuronide Negative ng/mL N 500 PDF SEE IMAGE 1 E78.2 2 Vitamin D deficiency has been defined by the [place] [employer] and an Endocrine Society practice guideline as a level of serum 25-OH vitamin D less than 20 ng/mL (1,2). The Endocrine Society went on to further define vitamin D insufficiency as a level between 21 and 29 ng/mL (2). 1. IOM ([place] of [employer]). 2010. Dietary reference intakes for calcium and D. [place]: The National Academies Press. 2. Hayes MF, Melanie NC, Mariano CLARK, et al. Evaluation, treatment, and prevention of vitamin D deficiency: an Endocrine Society clinical practice guideline. JCEM. 2010; 96(7):1911-30. Performed at: RN - [facility] [address] [id number] Gear Shaper: Tawnya Romano MD, Phone: [phone] Note: Persistent reduction for 3 months or more in an eGFR <60 mL/min/1.73 m2 defines CKD. Patients with eGFR values >/=60 mL/min/1.73 m2 may also have CKD if evidence of persistent proteinuria is present. The original MDRD equation for estimated GFR is not valid for patients less than 18 years of age. Additional information may be found at www.kdoqi.org. 4 Reference Guidelines*: Desirable: ........... < 200 [...] Source: National Cholesterol Education Program (NCEP) 8 Elevated levels of HbA1c suggest the need for more aggressive treatment of glycemia. The [place] Diabetes [employer] recommends that a primary goal of therapy should be a HbA1c of <7% and that physicians should re-evaluate the treatment regimen in patients with HbA1c values consistently >8%. 9 Prescribed Medications: Clomipramine (Clomipramine), Paliperidone ( Paliperidone), HYDROXYZINE, ALBUTEROL 10 Prescribed Medications: Clomipramine (Clomipramine), Paliperidone ( Paliperidone), HYDROXYZINE, ALBUTEROL 11 Positive Consistent 12 Positive Consistent 13 Prescribed Medications: Clomipramine (Clomipramine), Paliperidone ( [...] (Clomipramine), Paliperidone ( Paliperidone), HYDROXYZINE, ALBUTEROL 22 Prescribed Medications: Clomipramine (Clomipramine), Paliperidone ( Paliperidone), HYDROXYZINE, ALBUTEROL 23 Prescribed Medications: Clomipramine (Clomipramine), Paliperidone ( Paliperidone), HYDROXYZINE, ALBUTEROL 24 Prescribed Medications: Clomipramine (Clomipramine), Paliperidone ( Paliperidone), HYDROXYZINE, ALBUTEROL 25 Positive Consistent Paliperidone is a metabolite of Risperidone. Paliperidone (Invega) is also available as a prescription drug. Prescribed Medications: Clomipramine (Clomipramine), Paliperidone ( Paliperidone), HYDROXYZINE, ALBUTEROL Procedures Date Code Description Status 12/07/2018 48526 Spirometry Completed 12/07/2018 20873 Tympanometry Completed 11/30/2018 67482 Injection DX/Therapeutic/Prophy Completed Encounters Type Date Location Provider Dx Diagnosis Office Visit 12/11/2018 [facility] Tony Colmenares, E55.9 Vitamin D 3:30p N.P. deficiency, unspecified F41.9 Anxiety disorder, unspecified [...] Nicotine dependence, cigarettes, uncomplicated E78.2 Mixed hyperlipidemia E88.01 Ozjgp-2-kjcukbamoko deficiency K76.0 Fatty (change of) liver, not elsewhere classified H92.03 Otalgia, bilateral H66.91 Otitis media, unspecified, right ear Office Visit 12/07/2018 9:45a [facility] Tony Colmenares, E55.9 Vitamin D N.P. deficiency, unspecified F41.9 Anxiety disorder, unspecified [...] Nicotine dependence, cigarettes, uncomplicated E78.2 Mixed hyperlipidemia E88.01 Ucmbx-2-hvzcgqedqet deficiency K76.0 Fatty (change of) liver, not elsewhere classified H92.03 Otalgia, bilateral H66.91 Otitis media, unspecified, right ear Office Visit 11/30/2018 10:00a [facility] Tony Colmenares, E55.9 Vitamin D N.P. deficiency, unspecified F41.9 Anxiety disorder, unspecified [...] Z30.42 Encounter for surveillance of injectable contraceptive E88.01 Ovxmu-0-wxljqgbvrga deficiency K76.0 Fatty (change of) liver, not elsewhere classified Office Visit 11/23/2018 1:30p [facility] Tony Colmenares, E78.2 Mixed hyperlipidemia N.P. E55.9 Vitamin D [...] 10:00 am - Tony Colmenares N.P. at [facility]
--- OUTSIDE RECORDS SUMMARY | 2018-12-12 16:40 | XMS REPORT | Continuity of Care Document ---
:1985 External Reference #:[id number] Author Name Tony Colmenares N.P. Address [address] [facility] [address] [place] [address] Care Team Providers Name Role Phone Ailyn Arana M.D. 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 Atorvastatin Calcium take one tablet 30tabs E78.2 [facility] , 2018 by mouth at M.D. 20mg Tablets bedtime Depo-Provera Uad 1ml [facility] , 11/23/2018 150mg/ml M.D. Suspension Hydroxyzine Pamoate Take [...] Every 6 Hours as Needed For Cough History Medications Benztropine Mesylate 1 tab by mouth 60tabs G24.01 [facility] 11/23/2018 - twice a day M., M.D. 11/30/2018 1mg Tablets Doxycycline Hyclate take one capsule 30caps J18.0 [facility] - by mouth twice a M., M.D. 12/06/2018 100mg Capsules day Medications Administered in Office Medication SIG Qnty Indications Ordering Provider Date Depo Provera Injection Tony Colmenares N.Kyle 11/30/2018 Injection Vital Signs Date Vital Result Comment 12/07/2018 10:05am BP Systolic 126 mmHg BP [...] H/L Range Note Laboratory test finding 11/24/2018 [facility] Free T4 0.93 ng/dL N 0.76- 1.46 1 Thyroid Stim Hormone 3.09 uIU/mL N 0.30-4.20 Vitamin D,25-Hydroxy 13.4 ng/mL Low 30.0-100.0 2 Hepatic Function 11/24/2018 [facility] Total Protein 8.0 g/dL N 6.4-8.2 Albumin 4.4 g/dL N 3.4-5.0 Globulin 3.6 g/dL N 1.9-4.3 Alb/Glob 1.2 ratio Bilirubin,Total 0.4 mg/dL N 0.2-1.0 Bilirubin,Direct < 0.1 mg/dL N 0.0-0.2 Bilirubin,Indirect 0.3 mg/dL N 0.0-0.9 Sgot/Ast 17 U/L N 15-37 SGPT/Alt 41 U/L N 12-78 Alkaline Phosphatase 100 U/L N 45-117 CBC With Diff 11/24/2018 [facility] White Blood Count 11.2 K/uL High 3.1- [...] 40.4-72.8 Lymph % 26.0 % N 20.0-42.0 [place] % 6.7 % N 4.3-13.2 Eo% 1.3 % N 0.0-6.6 Bas% 0.4 % N 0.0-1.1 Immature Grans 1.2 % N 0.0-5.0 NRBC % 0.0 /100WBC < 10/ 100 WBC Neut# 7.21 K/uL High 1.8-7.0 Lymph # 2.91 K/uL N 1.0-4.0 [place] # 0.75 K/uL N 0.3-0.9 Eos # 0.15 K/uL N 0.0-0.5 Baso # 0.05 K/uL N 0.0-0.1 Immature Grans Absolute 0.14 K/uL NRBC # 0.00 K/uL CMP 11/24/2018 [facility] Glucose 82 mg/dL N 74-106 BUN 22 mg/dL High 7-18 Creatinine 0.9 mg/dL 0.6-1.3 Glom Filtration Rate, Estimate >60 mL/min >60 If >60 mL/min >60 3 BUN/Creat 24.4 ratio Sodium 138 mmol/L N 136-145 Potassium 3.6 mmol/L N 3.5-5.1 Chloride 101 mmol/L N 98-107 Carbon Dioxide 31 mmol/L N 21-32 Anion Gap 6 mEq/L Low 8-16 Calcium 9.8 mg/dL N 8.5-10.1 Lipid 11/24/2018 [facility] Cholesterol 263 mg/dL High <200 4 Triglycerides 223 mg/dL High <150 5 HDL Cholesterol 57 mg/dL >40 6 LDL-Cholesterol 161 mg/dL < 100 7 Hemoglobin A1c 11/24/2018 [facility] Glycohemoglobin (A1c) 5.4 % N 4.2-6.3 8 eAG 108 mg/dL Urine Drug [place] 11/23/2018 [facility] QAI-Oidlm-1-Cooh Negative N 5 9, 10 ng/mL Antidepressants 11/23/2018 [facility] Amitriptyline Negative N 20 Panel [...] N 20 13 Barbiturates Panel By 11/23/2018 [facility] Butalbital Negative ng/mL N 100 LC/MS/MS Pentobarbital Negative ng/mL N 100 Phenobarbital Negative ng/mL N 100 Secobarbital Negative ng/mL N 100 14 Benzodiazepines 11/23/2018 [facility] 2-Hydroxyethylflurazepam Negative N 10 Panel [...] N 10 15 Buprenorphine Panel By 11/23/2018 [facility] Buprenorphine Negative ng/mL N 5 LC/MS/MS Naloxone Negative ng/mL N 10 Norbuprenorphine Negative ng/mL N 5 16 Methadone Panel By 11/23/2018 [facility] Eddp Negative ng/mL N 10 LC/MS/MS Methadone Negative ng/mL N 10 17 Opiates Panel By 11/23/2018 [facility] [place] (Heroin Negative ng/ mL N 5 LC/MS/MS Metabolite) Codeine Negative ng/mL N 50 Hydrocodone Negative ng/mL N 50 Hydromorphone Negative ng/mL N 50 Morphine Negative ng/mL N 50 Norhydrocodone Negative ng/mL N 50 Noroxycodone Negative ng/mL N 50 Noroxymorphone Negative ng/mL N 50 Oxycodone Negative ng/mL N 50 Oxymorphone Negative ng/mL N 50 18 Specimen Validity 11/23/2018 [facility] Creatinine, Urine 69 mg/ dL N >20 Panel Color YELLOW N Yellow pH 6.4 N 5.0-8.0 Specific [place] 1.022 N 1.001-1.035 19 Amphetamine Panel By 11/23/2018 [facility] Amphetamine Negative ng/mL N 50 LC/MS/MS Methamphetamine Negative ng/mL N 50 Mdma (Ecstasy) Negative ng/mL N 50 Mda Negative ng/ml N 50 Mdea Negative ng/mL N 50 20 Cocaine Panel 11/23/2018 [facility] Benzoylecgonine Negative ng/ mL N 50 21 By LC/MS/MS (Cocaine) Urine DRG SCR 11/23/2018 [facility] Amphetamine NEGATIVE N 1000 (12PNL-PM) Barbiturate NEGATIVE N 200 Benzodiazepine NEGATIVE N 200 Buprenorphine NEGATIVE N 15 Cannabinoid NEGATIVE N 50 Cocaine NEGATIVE N 300 Methadone NEGATIVE N 300 Opiate NEGATIVE N 300 Oxycodone NEGATIVE N 300 Phencyclidine NEGATIVE N 25 22 Laboratory test finding 11/23/2018 [facility] Tramadol Negative ng/mL N 5 23 Gabapentin Negative ng/mL N 100 24 Paliperidone Positive Consist <SEE NOTE> ng/mL N 1 25 Ethyl Glucuronide 11/23/2018 [facility] Ethyl Glucuronide Negative ng/mL N 500 PDF SEE IMAGE 1 E78.2 2 Vitamin D deficiency has been defined by the [place] of [employer] and an Endocrine Society practice guideline as a level of serum 25-OH vitamin D less than 20 ng/mL (1,2). The Endocrine Society went on to further define vitamin D insufficiency as a level between 21 and 29 ng/mL (2). 1. IOM ([place] [employer]). 2010. Dietary reference intakes for calcium and D. [place]: The National Academies Press. 2. Hayes MF, Melanie NC, Mariano CLARK, et al. Evaluation, treatment, and prevention of vitamin D deficiency: an Endocrine Society clinical practice guideline. JCEM. 2010; 96(7):1911-30. Performed at: RN - [facility] [address], [place], [place] [id number] Edge Runner: Tawnya Romano MD, Phone: [phone] Note: Persistent reduction for 3 months [...] for more aggressive treatment of glycemia. The [place] Diabetes Association recommends that a primary goal [...] ALBUTEROL Procedures Date Code Description Status 12/07/2018 50957 Spirometry Completed 12/07/2018 25913 Tympanometry Completed 11/30/2018 08798 Injection DX/Therapeutic/Prophy Completed Encounters Type Date Location Provider Dx Diagnosis Office Visit 12/07/2018 [facility] Tony Colmenares, E55.9 Vitamin D 9:45a N.P. deficiency, unspecified F41.9 Anxiety disorder, unspecified [...] dependence, cigarettes, uncomplicated E78.2 Mixed hyperlipidemia E88.01 Jmpil-5-ftlxakxddkm deficiency K76.0 Fatty (change of) liver, not elsewhere classified H92.03 Otalgia, bilateral H66.91 Otitis media, unspecified, right ear Office Visit 11/30/2018 10:00a [facility] Tony Colmenares, E55.9 Vitamin D N.P. deficiency, [...] Encounter for surveillance of injectable contraceptive E88.01 Jsgac-3-viywjqlylsz deficiency K76.0 Fatty (change of) liver, not elsewhere classified Office Visit 11/23/2018 1:30p [facility] Tony Colmenares, E78.2 Mixed hyperlipidemia N.P. E55.9 [...] 10:00 am - Tony Colmenares N.P. at [facility]
--- OUTSIDE RECORDS SUMMARY | 2018-12-12 16:40 | XMS REPORT | Continuity of Care Document ---
:1985 External Reference #:[id number] Author Name Tony Colmenares N.P. Address [address] [facility] [address] [place] [address] Care Team Providers Name Role Phone Ailyn Arana M.D. 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 Suspension Hydroxyzine Pamoate Take [...] H/L Range Note CBC With Diff 11/24/2018 [facility] White Blood Count 11.2 K/uL High 3.1- [...] 40.4-72.8 Lymph % 26.0 % N 20.0-42.0 [place] % 6.7 % N 4.3-13.2 Eo% 1.3 % N 0.0-6.6 Bas% 0.4 % N 0.0-1.1 Immature Grans 1.2 % N 0.0-5.0 NRBC % 0.0 /100WBC < 10/ 100 WBC Neut# 7.21 K/uL High 1.8-7.0 Lymph # 2.91 K/uL N 1.0-4.0 [place] # 0.75 K/uL N 0.3-0.9 Eos # 0.15 K/uL N 0.0-0.5 Baso # 0.05 K/uL N 0.0-0.1 Immature Grans Absolute 0.14 K/uL NRBC # 0.00 K/uL CMP 11/24/2018 [facility] Glucose 82 mg/dL N 74-106 BUN 22 [...] 9.8 mg/dL N 8.5-10.1 Hemoglobin A1c 11/24/2018 [facility] Glycohemoglobin (A1c) 5.4 % N 4.2-6.3 3 eAG 108 mg/dL Lipid 11/24/2018 [facility] Cholesterol 263 mg/dL High <200 4 Triglycerides 223 mg/dL High <150 5 HDL Cholesterol 57 mg/dL >40 6 LDL-Cholesterol 161 mg/dL < 100 7 Hepatic Function 11/24/2018 [facility] Total Protein 8.0 g/dL N 6.4-8.2 Albumin 4.4 g/dL N 3.4-5.0 Globulin 3.6 g/dL N 1.9-4.3 Alb/Glob 1.2 ratio Bilirubin,Total 0.4 mg/dL N 0.2-1.0 Bilirubin,Direct < 0.1 mg/dL N 0.0-0.2 Bilirubin,Indirect 0.3 mg/dL N 0.0-0.9 Sgot/Ast 17 U/L N 15-37 SGPT/Alt 41 U/L N 12-78 Alkaline Phosphatase 100 U/L N 45-117 Laboratory test finding 11/24/2018 [facility] Free T4 0.93 ng/dL N 0.76- 1.46 Thyroid Stim Hormone 3.09 uIU/mL N 0.30-4.20 Vitamin D,25-Hydroxy 13.4 ng/mL Low 30.0-100.0 8 Ethyl Glucuronide 11/23/2018 [facility] Ethyl Glucuronide Negative ng/mL N 500 9 PDF SEE IMAGE Laboratory test finding 11/23/2018 [facility] Tramadol Negative ng/mL N 5 10 Gabapentin Negative ng/mL N 100 11 Paliperidone Positive Consist <SEE NOTE> ng/mL N 1 12 Urine DRG SCR 11/23/2018 [facility] Amphetamine NEGATIVE N 1000 (12PNL-PM) Barbiturate NEGATIVE N 200 Benzodiazepine NEGATIVE N 200 Buprenorphine NEGATIVE N 15 Cannabinoid NEGATIVE N 50 Cocaine NEGATIVE N 300 Methadone NEGATIVE N 300 Opiate NEGATIVE N 300 Oxycodone NEGATIVE N 300 Phencyclidine NEGATIVE N 25 13 Cocaine Panel By 11/23/2018 [facility] Benzoylecgonine Negative ng/mL N 50 14 LC/MS/MS (Cocaine) Amphetamine Panel 11/23/2018 [facility] Amphetamine Negative ng/ mL N 50 By LC/MS/MS Methamphetamine Negative ng/mL N 50 Mdma (Ecstasy) Negative ng/mL N 50 Mda Negative ng/ml N 50 Mdea Negative ng/mL N 50 15 Specimen Validity 11/23/2018 [facility] Creatinine, Urine 69 mg/ dL N >20 Panel Color YELLOW N Yellow pH 6.4 N 5.0-8.0 Specific [place] 1.022 N 1.001-1.035 16 Opiates Panel By 11/23/2018 [facility] 6-[place] (Heroin Negative ng/ mL N 5 LC/MS/MS Metabolite) Codeine Negative ng/mL N 50 Hydrocodone Negative ng/mL N 50 Hydromorphone Negative ng/mL N 50 Morphine Negative ng/mL N 50 Norhydrocodone Negative ng/mL N 50 Noroxycodone Negative ng/mL N 50 Noroxymorphone Negative ng/mL N 50 Oxycodone Negative ng/mL N 50 Oxymorphone Negative ng/mL N 50 17 Methadone Panel By 11/23/2018 [facility] Eddp Negative ng/mL N 10 LC/MS/MS Methadone Negative ng/mL N 10 18 Buprenorphine Panel By 11/23/2018 [facility] Buprenorphine Negative ng/mL N 5 LC/MS/MS Naloxone Negative ng/mL N 10 Norbuprenorphine Negative ng/mL N 5 19 Benzodiazepines 11/23/2018 [facility] 2-Hydroxyethylflurazepam Negative N 10 Panel [...] N 10 20 Barbiturates Panel By 11/23/2018 [facility] Butalbital Negative ng/mL N 100 LC/MS/MS Pentobarbital Negative ng/mL N 100 Phenobarbital Negative ng/mL N 100 Secobarbital Negative ng/mL N 100 21 Antidepressants Panel 11/23/2018 [facility] Amitriptyline Negative ng/mL N 20 [...] ng/mL N 20 24 Urine Drug 11/23/2018 [facility] LMO-Rdlpf-8-Cooh Negative ng/mL N 5 25 [facility] Ethyl Glucuronide <pending> 1 E78.2 2 Note: [...] for more aggressive treatment of glycemia. The [place] Diabetes Association recommends that a primary goal [...] D deficiency has been defined by the [place] of [employer] and an Endocrine Society practice guideline as a level of serum 25-OH vitamin D less than 20 ng/mL (1,2). The Endocrine Society went on to further define vitamin D insufficiency as a level between 21 and 29 ng/mL (2). 1. IOM ([place] [employer]). 2010. Dietary reference intakes for calcium and D. [place]: The National Academies Press. 2. Hayes MF, Melanie TINOCO, Mariano CLARK, et al. Evaluation, treatment, and prevention of vitamin D deficiency: an Endocrine Society clinical practice guideline. JCEM. 2010; 96(7):1911-30. Performed at: RN - [facility] [address] [id number] Hairspring Setter: Tawnya Romano MD, Phone: [phone] Prescribed Medications: Clomipramine (Clomipramine), Paliperidone ( [...] Location Provider Dx Diagnosis Office Visit 11/30/2018 [facility] Tony Colmenares, E55.9 Vitamin D 10:00a [...] of injectable contraceptive Office Visit 11/23/2018 1:30p [facility] Tony Colmenares E78.2 Mixed hyperlipidemia N.P. [...] 10:00 am - Tony Colmenares N.P. at [facility]
--- NOTE | 2018-12-12 16:43 | UC ---
- HPI Summary HPI Summary: 33 year old female with PMH + for severe anxiety, on multiple medications, presents with possible . Was given depo injection 2-3 weeks ago, last menses end of October. Last night felt crampy abdominal pain. no vaginal bleeding, pain currently. - History of Current Complaint Stated Complaint: TEST Time Seen by Provider: 12/12/18 16:42 Hx Obtained From: Patient Current Severity: None Location of Pain: None Character: None - Assessment Hx Now: No - neg preg test last week - Additional Pertinent History Primary Care Physician: [id number] - Allergies/Home Medications Allergies/Adverse Reactions: Allergies Allergy/AdvReac Type Severity Reaction Status Date / Time citalopram [From Celexa] Allergy Hives Verified 12/12/18 20:42 clonazepam [From Klonopin] AdvReac Insomnia Verified 12/12/18 20:42 lorazepam [From Ativan] AdvReac Insomnia Verified 12/12/18 20:42 ondansetron [From Zofran] AdvReac Insomnia Verified 12/12/18 20:42 sertraline AdvReac Insomnia Verified 12/12/18 20:42 Home Medications: Home Medications Amantadine CAP* [Symmetrel CAP*] 100 mg PO BID 12/12/18 [History Confirmed 12/12] Atorvastatin* [Lipitor*] 20 mg PO QPM 12/12/18 [History Confirmed 12/12/18] Cholecalciferol (Vitamin D3) [Vitamin D3] 1,000 unit PO DAILY 12/12/18 [History Confirmed 12/12/18] ClomiPRAMINE (NF) [Clomipramine (NF)] 200 mg PO 1900 12/12/18 [History Confirmed 12/12/18] Fenofibrate 40 mg PO DAILY 12/12/18 [History Confirmed 12/12/18] PMH/Surg Hx/FS Hx/Imm Hx Previously Healthy: No - anxiety, alpha1 antitripsin Psychological History: Anxiety, Depression Other History Of: Negative For: Anticoagulant Therapy - Surgical History Surgical History: None Surgery Procedure, Year, and Place: pt denies hx - Family History Known Family History: Positive: Hypertension Negative: Cardiac Disease - Social History Alcohol Use: None Alcohol Amount: pt denies alcohol use Substance Use Type: None Substance Use Comment - Amount & Last Used: pt denies drug use Smoking Status (MU): Heavy Every Day Tobacco Smoker Type: Cigarettes Amount Used/How Often: 2-3 PPD Length of Time of Smoking/Using Tobacco: pt denies tobacco use Have You Smoked in the Last Year: No When Did the Patient Quit Smoking/Using Tobacco: pt denies tobacco use - Immunization History Most Recent Influenza Vaccination: unknown Most Recent Pneumonia Vaccination: unknown Vaccination Up to Date: Yes Review of Systems All Other Systems Reviewed And Are Negative: Yes Constitutional: Positive: Negative Gastrointestinal: Positive: Abdominal Pain Psychological: Positive: Anxious Is Patient Immunocompromised?: No Physical Exam - Physical Exam Triage Information Reviewed: Yes Vital Signs Reviewed: Yes Appearance: Positive: Well-Appearing, No Pain Distress, Well-Nourished Skin: Positive: Warm, Skin Color Reflects Adequate Perfusion Eyes: Positive: Normal, EOMI ENT: Positive: Hearing grossly normal Abdomen Description: Negative: CVA Tenderness (R), CVA Tenderness (L) Musculoskeletal: Positive: Normal Neurological: Positive: Normal Psychiatric: Positive: Anxious AVPU Assessment: Alert - Course Course Of Treatment: urine +, discussed with patient importance of good early care , information given. Discussed current medicatinos- due to poor knowledge of patients S/S prior to meds as well as potential rsik/ benefit ratio of fetus/ mother, patient was told to discussed with [facility]. She does have one in [place] and will call Friday for appointment and to voice her concerns about medications. - Differential Diagnosis/HQI/PQRI: Amenorrhea, Ectopic , Early , Late - Diagnoses Provider Diagnoses: Discharge - Sign-Out/Discharge Documenting (check all that apply): Patient Departure All imaging exams completed and their final reports reviewed: No Studies - Discharge Plan Condition: Good Disposition: HOME Patient Education Materials: First Trimester (ED), at 7 to 10 Weeks (ED) Referrals: Tony Colmenares NP [Primary Care Provider] - Additional Instructions: - COntact [facility] for treatment, reviewing medications - Certain medications that you are on need to be reviewed to see if they should be continued based on safety and your health. - Avoid alcohol, drugs - Billing Disposition and Condition Condition: GOOD Disposition: Home
[2018-12-12 16:44] VITALS: BP 129/98
== END 2018-12-12 17:25 | disposition home or self-care (01) ==
LOC: UCEAST 16:35
DX: Z32.01 Encounter for pregnancy test, result positive (principal); Z88.8 Allergy status to other drugs, medicaments and biological substances
CPT/HCPCS: 84702; 99211; G0463

== ENCOUNTER 2018-12-12 20:37 | Emergency (ER) | payer MEDICAID ==
--- NOTE | 2018-12-12 22:11 | ED ---
Abdominal Pain/Female - HPI Summary HPI Summary: This patient is a 33 year old F presenting to [facility] accompanied by family with a chief complaint of lower abdominal pain since last night with a positive at home test today. Reports LNMP was in September. Reports lightheadedness and headaches which is typical for her pregnancies. Abdominal pain is currently resolved. Expresses concern that her psychiatric medications may be unsafe to take while . - History of Current Complaint Chief Complaint: EDAbdPain Stated Complaint: PAINS IN STOMACH PER PT Time Seen by Provider: 12/12/18 21:57 Hx Obtained From: Patient Hx Last Menstrual Period: [id number] Onset/Duration: Lasting Days, Resolved Timing: Constant Pain Intensity: 0 Pain Scale Used: 0-10 Numeric Location: Other - lower Alleviating Factor(s): Spontaneous Resolution Associated Signs and Symptoms: Positive: Other: - lightheaded and headache Allergies/Adverse Reactions: Allergies Allergy/AdvReac Type Severity Reaction Status Date / Time citalopram [From Celexa] Allergy Hives Verified 12/12/18 20:42 clonazepam [From Klonopin] AdvReac Insomnia Verified 12/12/18 20:42 lorazepam [From Ativan] AdvReac Insomnia Verified 12/12/18 20:42 ondansetron [From Zofran] AdvReac Insomnia Verified 12/12/18 20:42 sertraline AdvReac Insomnia Verified 12/12/18 20:42 Home Medications: Home Medications Azithromycin TAB* [Zithromax TAB (Z-GÉNESIS) 250 mg #6 tabs] 250 mg PO DAILY [History Confirmed 12/12/18] PMH/Surg Hx/FS Hx/Imm Hx Endocrine/Hematology History: Reports: Other Endocrine/Hematological Disorders - protein deficiency - Alpha 1 Denies: Hx Anticoagulant Therapy, Hx Diabetes, Hx Thyroid Disease Cardiovascular History: Denies: Hx Hypertension Respiratory History: Reports: Hx Asthma - prescribed albuterol inhaler in personal belongings Denies: Hx Chronic Obstructive Pulmonary Disease (COPD) GI History: Denies: Hx Ulcer Sensory History: Denies: Hx Contacts or Glasses, Hx Hearing Aid Opthamlomology History: Denies: Hx Contacts or Glasses Psychiatric History: Reports: Hx Anxiety, Hx Eating Disorder - when depressed - not eat or drink, Hx Depression, Hx Panic Disorder, Hx Inpatient Treatment - pt relates "a long time ago" at [facility], Hx of Violent Episodes Against Others Denies: Hx Bipolar Disorder - Surgical History Surgery Procedure, Year, and Place: pt denies hx Infectious Disease History: No Infectious Disease History: Reports: Hx of Known/Suspected MRSA - in urine Denies: Hx Clostridium Difficile, Hx Hepatitis, Hx Human Immunodeficiency Virus (HIV), Hx Shingles, Hx Tuberculosis, Hx Known/Suspected VRE, Hx Known/ Suspected VRSA, History Other Infectious Disease, Traveled Outside the [place] in Last 30 Days - Family History Known Family History: Positive: Hypertension Negative: Cardiac Disease - Social History Alcohol Use: None Alcohol Amount: pt denies alcohol use Hx Substance Use: No Substance Use Type: Reports: None Substance Use Comment - Amount & Last Used: pt denies drug use Hx Tobacco Use: Yes Smoking Status (MU): Heavy Every Day Tobacco Smoker Type: Cigarettes Amount Used/How Often: 2-3 PPD Length of Time of Smoking/Using Tobacco: pt denies tobacco use Have You Smoked in the Last Year: No Review of Systems Positive: Other - lightheaded Positive: Abdominal Pain Positive: Headache All Other Systems Reviewed And Are Negative: Yes Physical Exam - Summary Physical Exam Summary: Appearance: Well-appearing, Well-nourished, lying in bed comfortably Skin: Warm, dry, no obvious rash Eyes: sclera anicteric, no conjunctival pallor ENT: mucous membranes moist, pharynx appears normal Neck: Supple, nontender Respiratory: Clear to auscultation, no signs of respiratory distress Cardiovascular: Normal S1, S2. No murmurs. Normal distal pulses in tibial and radial bilaterally. Abdomen: Soft, nontender, normal active bowel sounds present Musculoskeletal: Normal, Strength/ROM Intact Neurological: A&Ox3, awake and alert, mentation is normal, speech is fluent and appropriate Psychiatric: affect is normal, does not appear anxious or depressed Triage Information Reviewed: Yes Vital Signs On Initial Exam: Initial Vitals Temp Pulse Resp BP Pulse Ox 97.4 F 112 20 121/86 97 12/12/18 20:38 12/12/18 20:38 12/12/18 20:38 12/12/18 20:38 12/12/18 20:38 Vital Signs Reviewed: Yes Diagnostics - Vital Signs Vital Signs Temp Pulse Resp BP Pulse Ox 12/12/18 20:38 97.4 F 112 20 121/86 97 - Laboratory Result Diagrams: 12/12/18 22:15 12/12/18 22:15 Lab Statement: Any lab studies that have been ordered have been reviewed, and results considered in the medical decision making process. Abdominal Pain Fem Course/Dx - Course Course Of Treatment: 33 year old F presenting to [facility] accompanied by family with a chief complaint of lower abdominal pain since last night with a positive at home test today. Abdominal pain is currently resolved. Expresses concern that her psychiatric medications may be unsafe to take while . Bloodwork and UA obtained without significant abnormalities. Beta HCG confirms . Patient is instructed to discontinue her lipitor while and to follow up with her physician about symmetrel and clomipramine. Patient will be discharged home and is agreeable with this plan. - Diagnoses Provider Diagnoses: Discharge - Sign-Out/Discharge Documenting (check all that apply): Patient Departure - discharge Patient Received Moderate/Deep Sedation with Procedure: No - Discharge Plan Condition: Good Disposition: HOME Prescriptions: Nitrofurantoin Monohyd/M-Cryst [Macrobid 100 mg Capsule] 100 mg PO BID #10 cap Patient Education Materials: (ED) Referrals: Tony Colmenares NP [Primary Care Provider] - Additional Instructions: Of the medications on your list, atarax and invega seem ok. Lipitor should not be taken in , so stop that. The symmetrel and clomipramine are category C, so on those I would defer to your treating physicians to decide with you how important they are to your health to be taking them. - Billing Disposition and Condition Condition: GOOD Disposition: Home - Attestation Statements Document Initiated by Leonora: Yes Documenting Scribe: Gem Hughes Provider For Whom Leonora is Documenting (Include Credential): Buddy Kumar MD Scribe Attestation: IGem, scribed for Buddy Kumar MD on 12/15/18 at 0823. Scribe Documentation Reviewed: Yes Provider Attestation: The documentation as recorded by the Gem wyatt accurately reflects the service I personally performed and the decisions made by me, Buddy Kumar MD Status of Scribe Document: Viewed
[2018-12-12 22:28] LABS: ABS Eosinophils 0.4 10^3/ul (0-0.6); ABS Lymphocytes 2.2 10^3/ul (1.0-4.8); ABS Monocytes 0.8 10^3/ul (0-0.8); ABS Neutrophils 4.4 10^3/ul (1.5-7.7); Eosinophil % 5.4 %; Hematocrit 43 % (35-47); Hemoglobin 14.8 g/dL (12.0-16.0); Lymphocyte % 28.2 %; Mean Corpuscular HGB Conc 34 g/dL (31-36); Mean Corpuscular Hemoglobin 29 pg (27-31); Mean Corpuscular Volume 84 fL (80-97); Mean Platelet Volume 6.6 fL (7.4-10.4); Nucleated Red Blood Cells % 0.1; Platelet Count 263 10^3/uL (150-450); Red Blood Count 5.11 10^6 /uL (3.70-4.87); Red Cell Distribution Width 13 % (10-15); White Blood Count 7.8 10^3/uL (3.5-10.8)
[2018-12-12 22:38] LABS: Urine Appearance Clear; Urine Bacteria 1+ (Absent); Urine Bilirubin Negative (Negative); Urine Blood 1+ (Negative); Urine Color Yellow; Urine Glucose Negative (Negative); Urine Ketones Negative (Negative); Urine Nitrite Positive (Negative); Urine Protein Negative (Negative); Urine Red Blood Cell 2+(6-10/hpf) (Absent); Urine Specific Gravity 1.025 (1.010-1.030); Urine Squamous Epithelial Cell Present (Absent); Urine Urobilinogen Negative (Negative); Urine White Blood Cell Trace(0-5/hpf) (Absent)
[2018-12-12 22:40] LABS: Albumin 4.7 g/dL (3.2-5.2); Albumin/Globulin Ratio 1.7 (1-3); BUN/Creatinine Ratio 10.3 (8-20); Calcium 10.3 mg/dL (8.6-10.3); EGFR African American 90.7 (>60); Globulin 2.7 g/dL (2-4); Potassium 3.6 mmol/L (3.5-5.0); Total Bilirubin 0.6 mg/dL (0.2-1.0); Total Protein 7.4 g/dL (6.4-8.9)
[2018-12-12 22:47] LABS: HCG Pregnancy 92.63 mIU/mL
[2018-12-12 23:29] VITALS: BP 99/86
--- NOTE | 2018-12-15 05:56 | PN ---
Progress Note - Progress Note Date of Service: 12/15/18 Note: patient urine culture grew E coli >100,000. sent script for macrobid 100mg bidx5 days as patient is . spoke with patient at 6:35am informing of addition of medication.
--- NOTE | 2018-12-16 06:19 | PN ---
Progress Note - Progress Note Date of Service: 12/16/18 Note: patient was placed on macrobid which is only inhibitor based on final urine culture. spoke with patient and was placed on amoxicillin but another provider which will work so no further action required.
== END 2018-12-12 23:27 | disposition home or self-care (01) ==
LOC: ED 20:37
DX: Z34.80 Encounter for supervision of other normal pregnancy, unspecified trimester (principal); Z87.891 Personal history of nicotine dependence; Z3A.00 Weeks of gestation of pregnancy not specified
CPT/HCPCS: 36415; 80053; 81003; 81015; 84702; 85025; 86850; 86900; 86901; 87077; 87086; 87186; 99282